=== PATIENT | female | born 1945 | race Caucasian/White ===

== ENCOUNTER 2018-04-23 07:14 | Day surgery (SDC) | payer OTHER ==
[2018-04-21 16:18] LABS: Protime INR 1.25
[2018-04-21 16:52] LABS: Absolute Lymphocytes (CBC) 3.1 K/uL (0.7-4.9); Absolute Monocytes 0.5 K/uL (0.1-1.3); Basophils % 0.5 % (0-1.3); Eosinophils % 1.5 % (0-4.4); Hematocrit 49.2 % (36.0-45.0); Lymphocytes % 46.5 % (15.3-44.8); MCH 29.7 pg (27.0-35.0); MCV 90.1 fL (80-100); MPV 8.8 fL (7.6-11.3); RBC Red Blood Cell Count 5.46 M/uL (3.86-4.86)
[2018-04-21 19:10] LABS: Potassium 3.8 mEq/L (3.6-5.0)
[2018-04-23] MEDS ORDERED: NA CHLORIDE 0.9% 500 ML ONE (07:44)
[2018-04-23] MEDS ORDERED: MIDAZOLAM HCL 2 MG/2 ML INJ ONE ×2 (10:22→11:08)
[2018-04-23] MEDS ORDERED: FENTANYL CITR 100 MCG/2 ML ONE (10:23)
--- NOTE | 2018-04-25 03:36 | OP ---
Date of Procedure: 04/23/2018 Surgeon: Jorge Ontiveros MD Armored Machine Operator: Isabel Mancini. The patient will be sent home on her home medication in about 2-3 hours after bedrest and she will se e me in the office in about 2 weeks. Procedures: Left heart catheterization. Indication And Procedure: Ms. Ty is a 73-year-old woman who was admitted as an outpatient for h eart catheterization because of unstable angina. She was given 2 mg of Versed for IV sedation. A 6- Guamanian sheath was introduced in the right common femoral artery successfully. Angio-Seal was used to close the case. Sabine catheter 6-Guamanian left and right were used to cannulate the left main and r ight main respectively. Coronary injection revealed minimal coronary artery disease in the RCA. Cir cumflex had diffuse plaquing. LAD had about 20% to 30% stenosis. The patient tolerated the procedur e well. There were no complications. Blood Loss: 5 cc. Final Diagnosis: Mild to moderate coronary artery disease. Plan: For medical therapy. Total Conscious Sedation: 30 minutes. KALYN/KHADIJAH Voice ID: [id number] Report ID: [id number]
== END 2018-04-23 13:07 | disposition home or self-care (01) ==
LOC: CCL 07:14
DX: I25.110 Atherosclerotic heart disease of native coronary artery with unstable angina pectoris (principal); I48.91 Unspecified atrial fibrillation; I10 Essential (primary) hypertension; R53.83 Other fatigue; Z79.01 Long term (current) use of anticoagulants; Z88.2 Allergy status to sulfonamides; Z88.6 Allergy status to analgesic agent
CPT/HCPCS: 36415; 80048; 85025; 85347 ×4; 85610; 85730; 93454; C1760; C1893; J2250 ×2; J3010

== ENCOUNTER 2018-06-20 09:08 | Emergency (ER) | payer OTHER ==
[2018-06-20] MEDS ORDERED: NA CHLORIDE 0.9% 1,000 ML ONE ×2 (09:28→09:29)
[2018-06-20] MEDS ORDERED: METOPROLOL TARTRATE 5 MG/5 ML INJ IV ONE (09:30)
[2018-06-20] MEDS ORDERED: METOPROLOL TAR 25 MG TAB ONE (09:44)
[2018-06-20] MEDS ORDERED: MAGNESIUM SULFATE 1 gm IVPB 1 GM/100 ML BAG IV ONE (09:46)
[2018-06-20 09:49] LABS: Absolute Lymphocytes (CBC) 3.4 K/uL (0.7-4.9); Absolute Monocytes 0.5 K/uL (0.1-1.3); Absolute Neutrophil 4.4 K/uL (1.8-8.0); Basophils % 0.5 % (0-1.3); Eosinophils % 0.5 % (0-4.4); Hematocrit 41.7 % (36.0-45.0); Lymphocytes % 40.7 % (15.3-44.8); MCH 31.4 pg (27.0-35.0); MPV 8.1 fL (7.6-11.3); Monocytes % 5.9 % (3.3-12.3); RBC Red Blood Cell Count 4.69 M/uL (3.86-4.86)
[2018-06-20] MEDS ORDERED: MIDAZOLAM HCL 2 MG/2 ML INJ ONE ×2 (09:52→10:00)
[2018-06-20] MEDS ORDERED: FENTANYL CITR 100 MCG/2 ML ONE (09:53)
[2018-06-20 09:55] LABS: Protime INR 1.94
--- NOTE | 2018-06-20 10:04 | ER ---
Nurse's Notes [facility] Name: Bernabe Ty Age: 73 yrs Sex: Female : 1945 Arrival Date: 06/20/2018 Time: 09:09 Bed 3 Private MD: Zay Florez V Diagnosis: Atrial fibrillation and flutter;Ventricular tachycardia;Other chest pain;Hypokalemia Presentation: 06/20 09:18 Presenting complaint: Patient states: i fainted this morning and have been dizzy since tw2 430, my heart is racing and im short of breath. Transition of care: patient was not received from another setting of care. Onset of symptoms was June 20, 2018. Risk Assessment: Do you want to hurt yourself or someone else? Patient reports no desire to harm self or others. Initial Sepsis Screen: Does the patient meet any 2 criteria? No. Patient's initial sepsis screen is negative. Does the patient have a suspected source of infection? No. Patient's initial sepsis screen is negative. Care prior to arrival: None. 09:18 Method Of Arrival: Wheelchair tw2 09:18 Acuity: CADY 2 iw Triage Assessment: 09:18 General: Appears distressed, Behavior is cooperative, anxious. Pain: Denies pain. tw2 Cardiovascular: Reports shortness of breath, "heart racing". Historical: - Allergies: 09:14 Codeine; iw 09:14 Hydrocodone-Acetaminophen; iw 09:14 Sulfa (Sulfonamide Antibiotics); iw - Home Meds: 09:57 losartan 50 mg oral tab [Active]; Sotalol 40 mg Oral 1 tab [Active]; flecainide 100 mg tw2 oral tab 1 tab every 12 hours [Active]; Xarelto 20 mg oral tab 1 tab once daily [Active]; - PMHx: 09:14 Hypertension; iw 09:15 Atrial Fib; iw - PSHx: 09:14 ; back sx; sinus sx; iw - Immunization history:: Adult Immunizations up to date. - Social history:: Smoking status: Patient/guardian denies using tobacco. - Family history:: not pertinent. - Ebola Screening: : Patient denies travel to an Ebola-affected area in the 21 days before illness onset. Screenin:21 Abuse screen: Denies threats or abuse. Nutritional screening: No deficits noted. tw2 Tuberculosis screening: No symptoms or risk factors identified. Fall Risk None identified. Assessment: 09:25 Reassessment: pt Afib RVR on monitor with Sinus pause lasting approx 2-3 seconds, pt iw c/o feeling like she is going to faint, feels dizzy. pt moved from ER bed 20 to ER bed 3. placed on defib pads, placed on monitor, pt awake and talking. 09:25 General: Appears distressed, uncomfortable, Behavior is cooperative, anxious. Pain: aa5 Complains of pain in chest. Neuro: Level of Consciousness is awake, alert, obeys commands, Oriented to person, place, time, situation. Cardiovascular: Reports chest pain, lightheadedness, palpitations, Heart tones S1 S2 present Rhythm is atrial fibrillation with rapid ventricular response. Respiratory: Reports shortness of breath Airway is patent Respiratory effort is even, unlabored, Respiratory pattern is regular, symmetrical, Breath sounds are clear bilaterally. GI: No signs and/or symptoms were reported involving the gastrointestinal system. : No signs and/or symptoms were reported regarding the genitourinary system. EENT: No signs and/or symptoms were reported regarding the EENT system. Derm: Skin is pink, warm \\T\\ dry. Musculoskeletal: Range of motion: intact in all extremities. 09:45 Reassessment: Dr. Johnson at bedside to set up for synchronized cardioversion. iw 09:55 Reassessment: cardioversion unsuccessful, pt still in Afib with occasional sinus pause iw lasting 1-2 seconds, Dr. Johnson recommends transfer to higher level care facility for placement of pacemaker. 10:00 Reassessment: Pt resting with eyes closed, pt easy to awake to verbal stimuli, pt aa5 states "I just feel a little drowsy". Pt denies chest pain, denies SOB. 10:40 Reassessment: Pt has had approximately 5 asystole pauses over the last 40 minutes, aa5 lasting approximately 1-3 seconds each, pt remains awake and alert during the pauses and rhythm goes back to A-fib with RVR. Dr. Burns aware. Pt reports she feels lightheaded and pt's face becomes flushed with asystole pauses. . 11:00 Reassessment: Attempted transcutaneous pacing at [address] Burns at 60 bpm 60mA, aa5 pt tolerated poorly and order to stop pacing per Dr. Burns was received, transcutaneous pacing stopped per Dr. Burns at 1100. 11:00 Reassessment: Patient and/or family updated on plan of care and expected duration. Pain aa5 level reassessed. Patient is alert, oriented x 3, equal unlabored respirations, skin warm/dry/pink. Patient denies pain at this time. Pt appears uncomfortable. Pt's remains at bedside. Pt c/o feeling lightheaded . 11:23 Reassessment: Approximately 5 asystole pauses lasting approximately 2-3 seconds noted aa5 since 1040. A-fib on monitor. Pt remains awake and alert, pt's skin is pink/warm/dry, appears uncomfortable, denies pain, denies nausea. C/o feeling lightheaded . 11:25 Reassessment: Report given to nurse Sosa at [facility]. . aa5 11:40 Reassessment: Patient is alert, oriented x 3, equal unlabored respirations, skin aa5 warm/dry/pink. Life flight at bedside. Rhythm: Sinus Mariusz at 56 bpm, Dr. Burns notified (see pt's chart for all Rhythm strips). Pt states feeling better, denies any symptoms at this time. . Vital Signs: 09:19 BP 126 / 82; Pulse 132; Resp 19; Temp 97.8(O); Pulse Ox 100% on R/A; Pain 0/10; tw2 09:30 BP 159 / 106; Pulse 120; Resp 18 S; Pulse Ox 100% on 2 lpm NC; aa5 09:50 BP 155 / 100; Pulse 130; Resp 18 S; Pulse Ox 100% on 2 lpm NC; aa5 10:10 BP 128 / 85; Pulse 110; Resp 14 S; Pulse Ox 100% on Non-rebreather mask; aa5 10:30 BP 139 / 80; Pulse 114; Resp 14 S; Pulse Ox 100% on Non-rebreather mask; aa5 10:50 BP 115 / 97; Pulse 110; Resp 16 S; Pulse Ox 100% on Non-rebreather mask; aa5 11:00 BP 149 / 99; Pulse 122; Resp 20 S; Pulse Ox 100% on Non-rebreather mask; aa5 11:20 BP 123 / 98; Pulse 105; Resp 16 S; Pulse Ox 100% on Non-rebreather mask; aa5 11:40 BP 133 / 95; Pulse 56; Resp 16 S; Temp 98.0(O); Pulse Ox 100% on 2 lpm NC; Pain 0/10; aa5 09:19 Dr. Burns notified. "just uncomfortable in my chest" tw2 ED Course: 09:09 Patient arrived in ED. mr 09:09 Zay Florez MD is Private Physician. mr 09:19 Triage completed. tw2 09:19 Arm band placed on. EKG completed in triage. Results shown to MD. tw2 09:20 Gaibno Burns MD is Attending Physician. estrella 09:20 Placed in gown. Bed in low position. Call light in reach. Adult w/ patient. Cardiac tw2 monitor on. Pulse ox on. NIBP on. Notified ED physician of vital signs. 09:20 Initial lab(s) drawn, by ED staff, sent to lab. Inserted saline lock: 20 gauge in right iw antecubital area, using aseptic technique. Blood collected. 09:39 Macie Strickland RN is Primary Nurse. aa5 09:45 Inserted saline lock: 20 gauge in left wrist, using aseptic technique. IV inserted by mario alberto Quijano RN. 09:53 Assist provider with cardioversion (synchronized) with pads, for treatment of A fib iw with 100 joules Set up for procedure. Performed by Jett Johnson MD Monitored with director of cardiac cath lab, pulse ox, Post procedure rhythm is unchanged. Patient tolerated well. 09:54 Assist provider with cardioversion (synchronized) with pads, for treatment of A fib iw with 200 joules X 1. Set up for procedure. Performed by Jett Johnson MD Monitored with director of cardiac cath lab, pulse ox, Post procedure rhythm is unchanged. Patient tolerated well. 10:15 X-ray completed. Portable x-ray completed in exam room. Patient tolerated procedure ag1 well. 10:16 XRAY Chest (1 view) In Process Unspecified. EDMS 11:40 Patient admitted, IV remains in place. aa5 Administered Medications: 09:28 Drug: Lopressor 5 mg Route: IVP; Site: right antecubital; aa5 09:30 Drug: NS 0.9% 500 ml Route: IV; Rate: bolus; Site: right antecubital; aa5 10:10 Follow up: IV Status: Completed infusion aa5 09:33 Drug: Lopressor 5 mg Route: IVP; Site: right antecubital; aa5 10:13 Follow up: VO to hold 3rd Lopressor dose at 0946. VO not to adminiser 3rd Lopressor aa5 dose at 0950 09:41 Drug: Lopressor 25 mg Route: PO; aa5 11:45 Follow up: Response: No adverse reaction aa5 09:45 Drug: Magnesium Sulfate 1 grams Route: IVPB; Infused Over: 1 hrs; Site: right iw antecubital; 10:45 Follow up: IV Status: Completed infusion aa5 09:50 Drug: Versed 2 mg Route: IVP; Site: left hand; iw 09:55 Follow up: Response: No adverse reaction aa5 09:50 Drug: fentaNYL (PF) 25 mcg Route: IVP; Site: left hand; iw 09:55 Follow up: Response: No adverse reaction aa5 09:50 Drug: Versed 2 mg Route: IVP; Site: left hand; iw 09:55 Follow up: Response: No adverse reaction aa5 10:10 Drug: NS 0.9% 1000 ml Route: IV; Rate: 125 ml/hr; Site: right antecubital; aa5 11:45 Follow up: IV Status: Infusion continued upon transfer aa5 10:35 Drug: Potassium Chloride 20 mEq Route: IV; Rate: per protocol; Site: right antecubital; aa5 11:30 Follow up: IV Status: Infusion continued upon transfer aa5 Intake: Outcome: 10:04 ER care complete, transfer ordered by MD. de la rosa 11:40 Transferred by helicopter to [facility], Transfer form completed. X-rays aa5 sent w/ patient. Note: Report given to Life flight. 11:40 Condition: improved 11:40 Discharge instructions given to patient, family, Instructed on the need for transfer, Demonstrated understanding of instructions. 11:52 Patient left the ED. aa5 Signatures: Dispatcher [employer] EDGabino Zavala MD MD cha Rivera, Maria mr Williams, Irene, RN RN Macie Strickland RN RN aa5 Kell Johns ag1 Tracie Dias RN RN tw2 Corrections: (The following items were deleted from the chart) 10:12 09:15 Reassessment: pt Afib RVR on monitor with Sinus pause lasting approx 2-3 seconds, iw pt c/o feeling like she is going to faint, feels dizzy iw 10:14 09:18 Acuity: CADY 3 tw2 iw 11:20 09:25 Respiratory: Airway is patent Respiratory effort is even, unlabored, Respiratory aa5 pattern is regular, symmetrical, Breath sounds are clear bilaterally. aa5 11: 10:00 Reassessment: Pt resting with eyes closed, pt easy to awake to verbal stimuli, pt aa5 states "I just feel a little drowsy" . aa5 11:22 10:40 Reassessment: Pt has had approximately 5 asystole pauses over the last 40 aa5 minutes, lasting approximately 1-3 seconds each, pt remains awake and alert during the pauses and rhythm goes back to A-fib with RVR. Dr. Burns aware. . aa5
--- NOTE | 2018-06-20 10:04 | EDPHYS ---
Physician Documentation [facility] Name: Bernabe Ty Age: 73 yrs Sex: Female : 1945 Arrival Date: 06/20/2018 Time: 09:09 Bed 3 Private MD: Zay Florez V ED Physician Gabino Burns HPI: 06/20 09:34 This 73 yrs old Female presents to ER via Wheelchair with complaints of AFIB, estrella Dizziness. 09:34 This 73 yrs old Female presents to ER via Wheelchair with complaints of AFIB, estrella Dizziness. 09:34 The patient presents with dizziness, feeling faint, generalized weakness, estrella lightheadedness. Onset: The symptoms/episode began/occurred just prior to arrival, this morning. Context: occurred at home. Modifying factors: The symptoms are alleviated by nothing, the symptoms are aggravated by nothing. Associated signs and symptoms: The patient has no apparent associated signs or symptoms. Severity of symptoms: At their worst the symptoms were moderate in the emergency department the symptoms are unchanged. Patient's baseline: Neuro:. Historical: - Allergies: 09:14 Codeine; iw 09:14 Hydrocodone-Acetaminophen; iw 09:14 Sulfa (Sulfonamide Antibiotics); iw - Home Meds: 09:57 losartan 50 mg oral tab [Active]; Sotalol 40 mg Oral 1 tab [Active]; flecainide 100 mg tw2 oral tab 1 tab every 12 hours [Active]; Xarelto 20 mg oral tab 1 tab once daily [Active]; - PMHx: 09:14 Hypertension; iw 09:15 Atrial Fib; iw - PSHx: 09:14 ; back sx; sinus sx; iw - Immunization history:: Adult Immunizations up to date. - Social history:: Smoking status: Patient/guardian denies using tobacco. - Family history:: not pertinent. - Ebola Screening: : Patient denies travel to an Ebola-affected area in the 21 days before illness onset. ROS: 09:34 Constitutional: Negative for fever, chills, and weight loss, Eyes: Negative for injury, estrella pain, redness, and discharge, ENT: Negative for injury, pain, and discharge, Neck: Negative for injury, pain, and swelling, Respiratory: Negative for shortness of breath, cough, wheezing, and pleuritic chest pain, Abdomen/GI: Negative for abdominal pain, nausea, vomiting, diarrhea, and constipation, Back: Negative for injury and pain, : Negative for injury, bleeding, discharge, and swelling, MS/Extremity: Negative for injury and deformity, Skin: Negative for injury, rash, and discoloration, Psych: Negative for depression, anxiety, suicide ideation, homicidal ideation, and hallucinations, Allergy/Immunology: Negative for hives, rash, and allergies, Endocrine: Negative for neck swelling, polydipsia, polyuria, polyphagia, and marked weight changes, Hematologic/Lymphatic: Negative for swollen nodes, abnormal bleeding, and unusual bruising. 09:34 Cardiovascular: Positive for chest pain, palpitations. 09:34 Respiratory: Positive for shortness of breath, at rest. Exam: 09:34 Constitutional: This is a well developed, well nourished patient who is awake, alert, estrella and in no acute distress. Head/Face: Normocephalic, atraumatic. Eyes: Pupils equal round and reactive to light, extra-ocular motions intact. Lids and lashes normal. Conjunctiva and sclera are non-icteric and not injected. Cornea within normal limits. Periorbital areas with no swelling, redness, or edema. ENT: Nares patent. No nasal discharge, no septal abnormalities noted. Tympanic membranes are normal and external auditory canals are clear. Oropharynx with no redness, swelling, or masses, exudates, or evidence of obstruction, uvula midline. Mucous membranes moist. Neck: Trachea midline, no thyromegaly or masses palpated, and no cervical lymphadenopathy. Supple, full range of motion without nuchal rigidity, or vertebral point tenderness. No Meningismus. Chest/axilla: Normal chest wall appearance and motion. Nontender with no deformity. No lesions are appreciated. Respiratory: Lungs have equal breath sounds bilaterally, clear to auscultation and percussion. No rales, rhonchi or wheezes noted. No increased work of breathing, no retractions or nasal flaring. Abdomen/GI: Soft, non-tender, with normal bowel sounds. No distension or tympany. No guarding or rebound. No evidence of tenderness throughout. Back: No spinal tenderness. No costovertebral tenderness. Full range of motion. Female : Normal external genitalia. Skin: Warm, dry with normal turgor. Normal color with no rashes, no lesions, and no evidence of cellulitis. MS/ Extremity: Pulses equal, no cyanosis. Neurovascular intact. Full, normal range of motion. Neuro: Awake and alert, GCS 15, oriented to person, place, time, and situation. Cranial nerves II-XII grossly intact. Motor strength 5/5 in all extremities. Sensory grossly intact. Cerebellar exam normal. Normal gait. Psych: Awake, alert, with orientation to person, place and time. Behavior, mood, and affect are within normal limits. 09:34 Cardiovascular: Rate: tachycardic, Rhythm: irregularly irregular, Pulses: Pulses are 4+ in bilateral radial, brachial, femoral, popliteal, posterior tibial and and dorsalis pedis arteries.. Heart sounds: normal, Edema: is not appreciated, JVD: is not appreciated. Vital Signs: 09:19 BP 126 / 82; Pulse 132; Resp 19; Temp 97.8(O); Pulse Ox 100% on R/A; Pain 0/10; tw2 09:30 BP 159 / 106; Pulse 120; Resp 18 S; Pulse Ox 100% on 2 lpm NC; aa5 09:50 BP 155 / 100; Pulse 130; Resp 18 S; Pulse Ox 100% on 2 lpm NC; aa5 10:10 BP 128 / 85; Pulse 110; Resp 14 S; Pulse Ox 100% on Non-rebreather mask; aa5 10:30 BP 139 / 80; Pulse 114; Resp 14 S; Pulse Ox 100% on Non-rebreather mask; aa5 10:50 BP 115 / 97; Pulse 110; Resp 16 S; Pulse Ox 100% on Non-rebreather mask; aa5 11:00 BP 149 / 99; Pulse 122; Resp 20 S; Pulse Ox 100% on Non-rebreather mask; aa5 11:20 BP 123 / 98; Pulse 105; Resp 16 S; Pulse Ox 100% on Non-rebreather mask; aa5 11:40 BP 133 / 95; Pulse 56; Resp 16 S; Temp 98.0(O); Pulse Ox 100% on 2 lpm NC; Pain 0/10; aa5 09:19 Dr. Burns notified. "just uncomfortable in my chest" tw2 MDM: 09:20 Patient medically screened. [facility] 09:36 Data reviewed: vital signs, nurses notes, lab test result(s), EKG, radiologic studies, [facility] CT scan, plain films. 06/20 09:21 Order name: Basic Metabolic Panel; Complete Time: 10:15 [facility] 06/20 09:21 Order name: CBC with Diff; Complete Time: 10:01 [facility] 06/20 09:21 Order name: Ckmb; Complete Time: 10:15 [facility] 06/20 09:21 Order name: CPK; Complete Time: 10:15 [facility] 06/20 09:21 Order name: LFT's; Complete Time: 10:15 [facility] 06/20 09:21 Order name: Magnesium; Complete Time: 10:15 [facility] 06/20 09:21 Order name: NT PRO-BNP; Complete Time: 10:15 [facility] 06/20 09:21 Order name: PT-INR [facility] 06/20 09:21 Order name: Ptt, Activated [facility] 06/20 09:21 Order name: Troponin (emerg Dept Use Only); Complete Time: 10:09 [facility] 06/20 09:21 Order name: XRAY Chest (1 view) [facility] 06/20 09:21 Order name: Lipase; Complete Time: 10:15 [facility] 06/20 09:21 Order name: TSH; Complete Time: 10:15 [facility] 06/20 09:21 Order name: EKG; Complete Time: 09:22 [facility] 06/20 09:21 Order name: Cardiac monitoring; Complete Time: 09:39 [facility] 06/20 09:21 Order name: EKG - Nurse/Tech; Complete Time: 09:39 [facility] 06/20 09:21 Order name: IV Saline Lock; Complete Time: 09:39 [facility] 06/20 09:21 Order name: Labs collected and sent; Complete Time: 09:39 [facility] 06/20 09:21 Order name: O2 Per Protocol; Complete Time: 09:39 [facility] 06/20 09:21 Order name: O2 Sat Monitoring; Complete Time: 09:39 [facility] Administered Medications: 09:28 Drug: Lopressor 5 mg Route: IVP; Site: right antecubital; aa5 09:30 Drug: NS 0.9% 500 ml Route: IV; Rate: bolus; Site: right antecubital; aa5 10:10 Follow up: IV Status: Completed infusion aa5 09:33 Drug: Lopressor 5 mg Route: IVP; Site: right antecubital; aa5 10:13 Follow up: VO to hold 3rd Lopressor dose at 0946. VO not to adminiser 3rd Lopressor aa5 dose at 0950 09:41 Drug: Lopressor 25 mg Route: PO; aa5 11:45 Follow up: Response: No adverse reaction aa5 09:45 Drug: Magnesium Sulfate 1 grams Route: IVPB; Infused Over: 1 hrs; Site: right iw antecubital; 10:45 Follow up: IV Status: Completed infusion aa5 09:50 Drug: Versed 2 mg Route: IVP; Site: left hand; iw 09:55 Follow up: Response: No adverse reaction aa5 09:50 Drug: fentaNYL (PF) 25 mcg Route: IVP; Site: left hand; iw 09:55 Follow up: Response: No adverse reaction aa5 09:50 Drug: Versed 2 mg Route: IVP; Site: left hand; iw 09:55 Follow up: Response: No adverse reaction aa5 10:10 Drug: NS 0.9% 1000 ml Route: IV; Rate: 125 ml/hr; Site: right antecubital; aa5 11:45 Follow up: IV Status: Infusion continued upon transfer aa5 10:35 Drug: Potassium Chloride 20 mEq Route: IV; Rate: per protocol; Site: right antecubital; aa5 11:30 Follow up: IV Status: Infusion continued upon transfer aa5 Disposition: 06/20/18 10:04 Transfer ordered to [facility]. Diagnosis are Atrial fibrillation and flutter, Ventricular tachycardia, Other chest pain, Hypokalemia. - Reason for transfer: Higher level of care. - Accepting physician is dr kelly pascal. - Condition is Stable. - Problem is new. - Symptoms have improved. Signatures: Dispatcher [employer] [facility] Gabino Burns MD MD cha Williams, Irene RN RN iw Macie Strickland RN RN aa5 Tracie Dias RN RN tw2 Corrections: (The following items were deleted from the chart) 10:17 10:04 06/20/2018 10:04 Transfer ordered to [facility]. Diagnosis is estrella Atrial fibrillation and flutter; Ventricular tachycardia; Other chest pain. Reason for transfer: Higher level of care. Accepting physician is dr kelly pascal. Condition is Stable. Problem is new. Symptoms have improved. estrella 11:47 09:21 Urine Dipstick-Ancillary ordered. estrella aa5 11:52 10:17 06/20/2018 10:04 Transfer ordered to [facility]. Diagnosis is aa5 Atrial fibrillation and flutter; Ventricular tachycardia; Other chest pain; Hypokalemia. Reason for transfer: Higher level of care. Accepting physician is dr kelly pascal. Condition is Stable. Problem is new. Symptoms have improved. estrella
[2018-06-20 10:12] LABS: Albumin 4.3 g/dL (3.4-5.0); Bilirubin Direct 0.2 mg/dL (0-0.2); Bilirubin Total 0.5 mg/dL (0.2-1.0); CKMB Creatine Kinase MB 1.7 ng/mL (0.3-3.6); Magnesium 2.4 mg/dL (1.8-2.4); Potassium 3.4 mmol/L (3.5-5.1); Thyroid Stimulating Hormone 1.8 uIU/mL (0.36-3.74)
[2018-06-20] MEDS ORDERED: KCL 20 MEQ/100 mL IVPB 20 MEQ/100 ML BAG IV ONE (10:43)
--- NOTE | 2018-06-20 11:08 | RAD REPORT ---
EXAM DESCRIPTION: RAD - Chest Single View - 06/20/2018 10:17 am CLINICAL HISTORY: CHEST PAIN Chest pain. COMPARISON: Chest Single View dated 11/16/2017; Chest Pa And Lat (2 Views) dated 08/15/2016; Chest Si ngle View dated 08/05/2016; CHEST PA AND LAT 2 VIEW dated 10/20/2014 FINDINGS: Portable technique limits examination quality. The lungs are grossly clear. The heart is normal in size. No displaced fractures. IMPRESSION: No acute intrathoracic process suspected.
--- NOTE | 2018-06-21 10:40 | EKG ---
Test Date: 2018-06-20 Test Time: 11:46:01 Glass Technician: ONEAL MEASUREMENT RESULTS: Intervals: Rate: 54 WA: 204 QRSD: 94 QT: 476 QTc: 451 [place]: P: 29 WA: 204 QRS: -48 T: 59 INTERPRETIVE STATEMENTS: Sinus bradycardia Left axis Abnormal ECG Compared to ECG 06/20/2018 09:58:46 Atrial fibrillation no longer present Ventricular premature complex(es) no longer present Electronically Signed On 06-21-18 10:39:20 CDT by Jett Johnson
--- NOTE | 2018-06-21 10:40 | EKG ---
Test Date: 2018-06-20 Test Time: 09:58:46 Field Engineer: ONEAL MEASUREMENT RESULTS: Intervals: Rate: 112 [place]: QRSD: 100 QT: 386 QTc: [address]: P: [place]: QRS: -47 T: 68 INTERPRETIVE STATEMENTS: Atrial fibrillation with rapid ventricular response with premature ventricular or aberrantly conducted complexes Left anterior fascicular block Abnormal ECG Compared to ECG 12/09/2017 11:58:15 Ventricular premature complex(es) now present Left anterior fascicular block now present Left-axis deviation no longer present Left ventricular hypertrophy no longer present Prolonged QT interval no longer present Electronically Signed On 06-21-18 10:39:33 CDT by Jett Johnson
--- NOTE | 2018-06-21 10:41 | EKG ---
Test Date: 2018-06-20 Test Time: 09:23:24 Laser Engraver: BENNY MEASUREMENT RESULTS: Intervals: Rate: 186 [place]: QRSD: 120 QT: 236 QTc: 415 [place]: P: [place]: QRS: -61 T: 168 INTERPRETIVE STATEMENTS: Atrial fibrillation with rapid ventricular response with Left bundle branch block aberrance Left axis deviation Marked ST abnormality, possible lateral subendocardial injury Abnormal ECG Compared to ECG 12/09/2017 11:58:15 no significant change from previous ECG Electronically Signed On 06-21-18 10:41:22 CDT by Jett Johnson
--- NOTE | 2018-06-21 10:41 | EKG ---
Test Date: 2018-06-20 Test Time: 09:27:47 Educational Guidance Counselor: BENNY MEASUREMENT RESULTS: Intervals: Rate: 128 CO: QRSD: 140 QT: 372 QTc: 543 [place]: P: CO: QRS: -45 T: 136 INTERPRETIVE STATEMENTS: Atrial fibrillation with rapid ventricular response with premature ventricular or aberrantly conducted complexes Left axis deviation Abnormal ECG Compared to ECG 12/09/2017 11:58:15 Ventricular premature complex(es) now present Electronically Signed On 06-21-18 10:40:31 CDT by Jett Johnson
--- NOTE | 2018-06-21 10:42 | EKG ---
Test Date: 2018-06-20 Test Time: 09:17:26 Manager Of Security: BENNY MEASUREMENT RESULTS: Intervals: Rate: 145 MI: QRSD: 140 QT: 352 QTc: 546 [place]: P: MI: QRS: -46 T: 128 INTERPRETIVE STATEMENTS: Atrial fibrillation with rapid ventricular response with Left bundle branch block aberrancy Left axis deviation Abnormal ECG Compared to ECG 12/09/2017 11:58:15 no significant change from previous ECG Electronically Signed On 06-21-18 10:41:56 CDT by Jett Johnson
--- NOTE | 2018-06-21 10:43 | EKG ---
Test Date: 2018-06-20 Test Time: 09:15:07 Weatherization Operations Manager: BENNY MEASUREMENT RESULTS: Intervals: Rate: 132 AR: 114 QRSD: 142 QT: 380 QTc: 563 [place]: P: 94 AR: 114 QRS: -53 T: 135 INTERPRETIVE STATEMENTS: Atrial fibrillation with rapid ventricular response with Left bundle branch block aberrancy Abnormal ECG Compared to ECG 12/09/2017 11:58:15 significant changes have occurred Electronically Signed On 06-21-18 10:43:18 CDT by Jett Johnson
== END 2018-06-20 11:52 | disposition short-term general hospital (02) ==
LOC: ER 09:08
DX: I48.91 Unspecified atrial fibrillation (principal); I48.92 Unspecified atrial flutter; I47.2 Ventricular tachycardia; R07.89 Other chest pain; E87.6 Hypokalemia; Z88.6 Allergy status to analgesic agent; Z88.2 Allergy status to sulfonamides; I10 Essential (primary) hypertension
CPT/HCPCS: 36415; 71045; 80048; 80076; 82550; 82553; 83690; 83735; 83880; 84443; 84484; 85025; 85610; 85730; 92960; 93005 ×6; 99285; J2250; J3010; J3475; J7030 ×2

== ENCOUNTER 2018-09-25 06:17 | Emergency (ER) | payer OTHER ==
--- OUTSIDE RECORDS SUMMARY | 2018-09-25 06:20 | XMS REPORT | Clinical Summary ---
:1945 Author Organization [facility] Address [address] [place] [address] Care Team Providers Name Role Phone Asked, No Pcp Primary Care Provider Unavailable Allergies Active Allergy Reactions Severity Noted Date Comments Sulfamethoxazole-Trimethoprim Rash Low 09/15/2018 Codeine GI Intolerance 06/20/2018 Hydrocodone GI Intolerance 06/20/2018 Sulfa (Sulfonamide Antibiotics) Rash, GI Intolerance Low 06/20/2018 Current Medications Prescription Sig. Disp. Refills Start Date End Date Status losartan-hydrochlor Take 1 tablet 3 05/25/2018 Active othiazide (HYZAAR) by mouth 100-25 mg per daily. tablet XARELTO 20 mg Take 20 mg by 3 05/27/2018 Active tablet mouth every evening. aspirin 81 mg Chew 1 tablet 30 tablet 0 06/25/2018 06/25/2019 Active chewable tablet (81 mg total) daily. amIODarone Take 400mg (2 70 tablet 0 06/24/2018 Active (PACERONE) 200 MG tabs) by tablet mouth twice a day for 1 week then 200mg (1 tab) by mouth twice a day until wound check visit. sucralfate Take 1 tablet 120 tablet 0 09/16/2018 10/16/2018 Active (CARAFATE) 1 gram (1 g total) tablet by mouth 4 (four) times a day before meals and nightly for 30 days. colchicine 0.6 mg Take 0.5 30 tablet 0 09/16/2018 10/16/2018 Active tablet tablets (0.3 mg total) by mouth 2 (two) times a day for 30 days. pantoprazole Take 1 tablet 60 tablet 0 09/16/2018 10/16/2018 Active (PROTONIX) 40 MG EC (40 mg total) tablet by mouth 2 (two) times a day for 30 days. sotalol (BETAPACE) Take 80 mg by 3 03/17/2018 06/24/2018 Discontinued 80 MG tablet mouth 2 (two) times a day. PARoxetine (PAXIL) Take 10 mg by 0 04/09/2018 09/15/2018 Discontinued 10 MG tablet mouth nightly. mirtazapine Take 7.5 mg 0 04/21/2018 09/15/2018 Discontinued (REMERON) 7.5 MG by mouth tablet nightly. flecainide Take 100 mg 6 06/15/2018 06/24/2018 Discontinued (TAMBOCOR) 100 MG by mouth tablet every 12 (twelve) hours. atorvastatin Take 1 tablet 30 tablet 0 06/24/2018 09/15/2018 Discontinued (LIPITOR) 20 MG (20 mg total) tablet by mouth nightly. Default OP ins Active Problems Problem Noted Date PAF (paroxysmal atrial fibrillation) ([facility]) 09/15/2018 Chronic atrial fibrillation ([facility]) 06/20/2018 Paroxysmal SVT (supraventricular tachycardia) ([facility]) 06/20/2018 Essential hypertension 06/20/2018 Encounters Date Type Specialty Care Team Description 09/15/2018 - Hospital Encounter Cardiology Aric Walters MD PAF (paroxysmal 09/16/2018 atrial fibrillation) ([facility]) 09/15/2018 Anesthesia Event Procedural Kevan Mora Cardiology BLAYNE Zaragoza 09/15/2018 Procedure Pass Procedural Cardiology 09/15/2018 Surgery Procedural Aric Walters MD Ep complete ep study Cardiology w ablation pulmonary vein [55911 (CPT)] 06/22/2018 Procedure Pass Procedural Cardiology 06/22/2018 Surgery Procedural Kevin Bahena Insertion pacemaker Cardiology MD Brittanie pulse generator [09859 (CPT)] 06/20/2018 - Hospital Encounter Cardiology Valeria Santiago Paroxysmal SVT 06/24/2018 MD Gi (supraventricular tachycardia) (Primary Dx) 06/20/2018 Intake Access N/A after 09/24/2017 Family History Medical History Relation Name Comments Heart disease Brother Heart disease Sister Relation Name Status Comments Brother Father Mother Sister Social History Tobacco Use Types Packs/Day Years Used Date Never Smoker Smokeless Tobacco: Never Used Sex Assigned at Date Recorded Not on file Last Filed Vital Signs Vital Sign Reading Time Taken Blood Pressure 121/57 09/16/2018 7:46 AM CDT Pulse 59 09/16/2018 8:00 AM CDT Temperature 36.7 C (98 F) 09/16/2018 7:46 AM CDT Respiratory Rate 16 09/16/2018 7:46 AM CDT Oxygen Saturation 96% 09/16/2018 7:46 AM CDT Inhaled Oxygen Concentration - - Weight 70 kg (154 lb 5 oz) 09/16/2018 6:48 AM CDT Height 162.6 cm (5' 4") 09/15/2018 7:16 AM CDT Body Mass Index 26.49 09/16/2018 6:48 AM CDT Plan of Treatment Health Maintenance Due Date Last Done Comments BREAST CANCER SCREENING 1997 COLON CANCER SCREENING 1997 SHINGRIX VACCINE (#1) 1997 ZOSTER VACCINE 2007 PNEUMOCOCCAL POLYSACCHARIDE VACCINE AGE 65 AND OVER 02/18/2012 PNEUMOCOCCAL-13 02/18/2012 INFLUENZA VACCINE 06/17/2018 Implants Implanted Type Area Track Grinder Device Expiration Model / Identifier Date Serial / Lot Rosanna Xt Dr Mri - [id number] Cardiac N/A: [employer] CRM [id number] / Implanted: Qty: 1 on 06/22/2018 by Kevin Bahena Jr., MD Pacemaker N/[employer] / Generators Lead, Bipolar Active Fixation Atrial Steroid Eluting 45 Cm Capsure Fix Novus System - [id number] Cardiac Pacing N/A: [employer] CRM 04/06/2020 [id number] / Implanted: 06/22/2018 (Quantity not on file) Leads or N[employer] [id number] / Electrodes or [id number] Accessories Lead, Pacemaker Bipolar Fix Forming Atrial And Ventricular Steroid Eluting 52 Centimeter Capsure Fix Novus - [id number] Cardiac Pacing N/A: [employer] CRM 04/01/2020 [id number] 52 / Implanted: 06/22/2018 (Quantity not on file) Leads or N[employer] [id number] / Electrodes or [id number] Accessories Procedures Procedure Name Priority Date/Time Associated Comments Diagnosis XR CHEST 1 VW Routine 09/16/2018 10:06 Results for this PORTABLE AM CDT procedure are in the results section. ESTIMATED GFR Routine 09/16/2018 4:30 Results for this AM CDT procedure are in the results section. BASIC METABOLIC PANEL Routine 09/16/2018 4:30 Results for this AM CDT procedure are in the results section. HC COMPLETE BLD COUNT Routine 09/16/2018 4:30 Results for this W/AUTO DIFF AM CDT procedure are in the results section. EP COMPLETE EP STUDY Routine 09/15/2018 1:04 PAF (paroxysmal Results for this W ABLATION PULMONARY PM CDT atrial procedure are in VEIN fibrillation) (HCC) the results section. ACTIVATED CLOTTING Routine 09/15/2018 1:03 Results for this TIME PM CDT procedure are in the results section. ACTIVATED CLOTTING Routine 09/15/2018 12:42 Results for this TIME PM CDT procedure are in the results section. ACTIVATED CLOTTING Routine 09/15/2018 11:50 Results for this TIME AM CDT procedure are in the results section. ACTIVATED CLOTTING Routine 09/15/2018 11:40 Results for this TIME AM CDT procedure are in the results section. ACTIVATED CLOTTING Routine 09/15/2018 11:00 Results for this TIME AM CDT procedure are in the results section. 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 Urgency: Elective Difficult Airway: No Anesthesiologist: PERCY GEE Resident/PRISONER CLASSIFICATION INTERVIEWER/AA: MILENA GRESHAM Performed by: resident/PRISONER CLASSIFICATION INTERVIEWER/AA Preoxygenated with 100% O2: Yes C-spine Precautions Maintained Throughout: Yes Mask Ventilation: Easy mask Final Airway Type: Endotracheal airway Final Endotracheal Airway: ETT Technique Used: Direct laryngoscopy Insertion Site: Oral Blade Type: Isidro Laryngoscope Blade/Videolaryngoscope Blade Size: 2 ETT Size (mm): 7.0 Measured from: Lips ETT to Lips (cm): 20 Placement Verified by: CO2 detection, direct visualization and equal breath sounds Laryngoscopic view: Grade I - full view of glottis Rapid Sequence Induction (RSI): No Modified RSI: No Number of Attempts at Approach: 1 ESTIMATED GFR STAT 09/15/2018 7:55 AM CDT PROTHROMBIN TIME WITH INR STAT 09/15/2018 7:55 AM CDT BASIC METABOLIC PANEL STAT 09/15/2018 7:55 AM CDT HC COMPLETE BLD COUNT W/AUTO STAT 09/15/2018 7:55 AM CDT Results for this DIFF procedure are in the results section. TYPE AND SCREEN Routine 09/15/2018 7:00 AM CDT ECG 12-LEAD STAT 09/15/2018 6:44 AM CDT POC GLUCOSE Routine 06/24/2018 2:17 PM CDT POC GLUCOSE Routine 06/24/2018 11:13 AM CDT POC GLUCOSE Routine 06/24/2018 8:14 AM CDT ZZESTIMATED GFR Routine 06/24/2018 5:33 AM CDT PHOSPHORUS LEVEL Routine 06/24/2018 5:33 AM CDT IONIZED CALCIUM Routine 06/24/2018 5:33 AM CDT MAGNESIUM LEVEL Routine 06/24/2018 5:33 AM CDT CBC HEMOGRAM Routine 06/24/2018 5:33 AM CDT BASIC METABOLIC PANEL Routine 06/24/2018 5:33 AM CDT POC GLUCOSE Routine 06/24/2018 4:58 AM CDT POC GLUCOSE Routine 06/23/2018 8:57 PM CDT POC GLUCOSE Routine 06/23/2018 5:03 PM CDT POC GLUCOSE Routine 06/23/2018 12:06 PM CDT POC GLUCOSE Routine 06/23/2018 8:36 AM CDT XR CHEST 1 VW PORTABLE Routine 06/23/2018 5:18 AM CDT ECG PRE/POST OP Routine 06/23/2018 4:43 AM CDT POC GLUCOSE Routine 06/23/2018 4:29 AM CDT ZZESTIMATED GFR Routine 06/23/2018 1:20 AM CDT PARTIAL THROMBOPLASTIN TIME Routine 06/23/2018 1:20 AM CDT Results for this (PTT) procedure are in the results section. PROTHROMBIN TIME WITH INR Routine 06/23/2018 1:20 AM CDT IONIZED CALCIUM Routine 06/23/2018 1:20 AM CDT PHOSPHORUS LEVEL Routine 06/23/2018 1:20 AM CDT MAGNESIUM LEVEL Routine 06/23/2018 1:20 AM CDT BASIC METABOLIC PANEL Routine 06/23/2018 1:20 AM CDT HC COMPLETE BLD COUNT W/AUTO Routine 06/23/2018 1:20 AM CDT Results for this DIFF procedure are in the results section. POC GLUCOSE Routine 06/23/2018 12:07 AM CDT XR CHEST 1 VW PORTABLE Routine 06/22/2018 9:09 PM CDT POC GLUCOSE Routine 06/22/2018 9:09 PM CDT EP INSERTION PACEMAKER PULSE Routine 06/22/2018 7:50 PM CDT Results for this GENERATOR procedure are in the results section. POC GLUCOSE Routine 06/22/2018 3:56 PM CDT POC GLUCOSE Routine 06/22/2018 12:10 PM CDT POC GLUCOSE Routine 06/22/2018 7:23 AM CDT XR CHEST 1 VW PORTABLE Routine 06/22/2018 5:23 AM CDT ECG 12-LEAD Routine 06/22/2018 5:19 AM CDT POC GLUCOSE Routine 06/22/2018 3:51 AM CDT ZZESTIMATED GFR Routine 06/22/2018 1:20 AM CDT PHOSPHORUS LEVEL Routine 06/22/2018 1:20 AM CDT MAGNESIUM LEVEL Routine 06/22/2018 1:20 AM CDT IONIZED CALCIUM Routine 06/22/2018 1:20 AM CDT HC COMPLETE BLD COUNT W/AUTO Routine 06/22/2018 1:20 AM CDT Results for this DIFF procedure are in the results section. BASIC METABOLIC PANEL Routine 06/22/2018 1:20 AM CDT POC GLUCOSE Routine 06/21/2018 11:40 PM CDT POC GLUCOSE Routine 06/21/2018 7:48 PM CDT POC GLUCOSE Routine 06/21/2018 5:06 PM CDT POC GLUCOSE Routine 06/21/2018 11:39 AM CDT POC GLUCOSE Routine 06/21/2018 7:44 AM CDT ECG 12-LEAD Routine 06/21/2018 5:10 AM CDT XR CHEST 1 VW PORTABLE Routine 06/21/2018 4:35 AM CDT POC GLUCOSE Routine 06/21/2018 4:13 AM CDT ZZESTIMATED GFR Routine 06/21/2018 1:14 AM CDT PHOSPHORUS LEVEL Routine 06/21/2018 1:14 AM CDT MAGNESIUM LEVEL Routine 06/21/2018 1:14 AM CDT IONIZED CALCIUM Routine 06/21/2018 1:14 AM CDT BASIC METABOLIC PANEL Routine 06/21/2018 1:14 AM CDT HC COMPLETE BLD COUNT W/AUTO Routine 06/21/2018 1:00 AM CDT Results for this DIFF procedure are in the results section. POC GLUCOSE Routine 06/20/2018 11:49 PM CDT POC GLUCOSE Routine 06/20/2018 8:04 PM CDT POC GLUCOSE Routine 06/20/2018 4:42 PM CDT POTASSIUM LEVEL Routine 06/20/2018 3:36 PM CDT THYROID STIMULATING HORMONE Routine 06/20/2018 3:36 PM CDT ECG 12-LEAD Routine 06/20/2018 2:39 PM CDT HEMOGLOBIN A1C Routine 06/20/2018 2:37 PM CDT TYPE AND SCREEN Routine 06/20/2018 2:37 PM CDT PARTIAL THROMBOPLASTIN TIME Routine 06/20/2018 2:35 PM CDT Results for this (PTT) procedure are in the results section. PROTHROMBIN TIME WITH INR Routine 06/20/2018 2:35 PM CDT HC COMPLETE BLD COUNT W/AUTO Routine 06/20/2018 2:35 PM CDT Results for this DIFF procedure are in the results section. ECHOCARDIOGRAM 2D COMPLETE W STAT 06/20/2018 2:20 PM CDT Results for this MMODE SPECTRAL COLOR DOPPLER procedure are in the (18953) results section. XR CHEST 1 VW PORTABLE Routine 06/20/2018 1:35 PM CDT HEPATIC FUNCTION PANEL Routine 06/20/2018 12:58 PM CDT LIPID PANEL Routine 06/20/2018 12:58 PM CDT ZZESTIMATED GFR Routine 06/20/2018 12:58 PM CDT IONIZED CALCIUM Routine 06/20/2018 12:58 PM CDT PHOSPHORUS LEVEL Routine 06/20/2018 12:58 PM CDT MAGNESIUM LEVEL Routine 06/20/2018 12:58 PM CDT BASIC METABOLIC PANEL Routine 06/20/2018 12:58 PM CDT POC GLUCOSE Routine 06/20/2018 12:49 PM CDT after 09/24/2017 Results XR Chest 1 Vw Portable (09/16/2018 10:06 AM)Only the most recent of6 resultswithin the time period is included. Narrative Performed At EXAMINATION:XR CHEST 1 VW PORTABLE [facility] CLINICAL HISTORY:Post ablation COMPARISON:To previous study from 06/23/2018 IMPRESSION: Transvenous pacemaker is present. The heart is normal in appearance and the lungs are hyperinflated. Minimal atelectatic changes in the left lung base present. Small granuloma in the left lung base is present. Lungs otherwise are clear. [facility]-[id number] Procedure Note Hm Interface, Radiology Results Incoming - 09/16/2018 10:17 AM CDT EXAMINATION: XR CHEST 1 VW PORTABLE CLINICAL HISTORY: Post ablation COMPARISON: To previous study from 06/23/2018 IMPRESSION: Transvenous pacemaker is present. The heart is normal in appearance and the lungs are hyperinflated. Minimal atelectatic changes in the left lung base present. Small granuloma in the left lung base is present. Lungs otherwise are clear. [facility]-[id number] Performing Organization Address City/[facility]/Zipcode Phone Number [facility] [address] [place] [address] Estimated GFR (09/16/2018 4:30 AM)Only the most recent of2 resultswithin the time period is included. Estimated GFR 61 mL/min/1.73 m2 [facility] DEPARTMENT OF Comment: PATHOLOGY AND GENOMIC CatergoryUnitsInterpretation MEDICINE G1 >=90 Normal or high G2 60-89Mildly decreased G8o06-68Vifwrh to moderately decreased M1p11-77Oswxpcaujl to severely decreased G4 15-29Severely decreased G5 <15Kidney failure The eGFR was calculated using the Chronic Kidney Disease Epidemiology Collaboration (CKD-EPI) equation. Interpretation is based on recommendations of the National Kidney Foundation-Kidney Disease Outcomes Quality Initiative (NKF-KDOQI) published in 2014. Specimen Plasma specimen Performing Organization Address City/State/Zipcode Phone Number [facility] DEPARTMENT OF PATHOLOGY AND [address] [place] [address] GENOMIC MEDICINE CBC with platelet and differential (09/16/2018 4:30 AM)Only the most recent of6 resultswithin the time period is included. WBC 11.93 (H) 4.50 - 11.00 k/uL [facility] DEPARTMENT OF PATHOLOGY AND GENOMIC MEDICINE RBC 3.53 (L) 4.20 - 5.50 m/uL [facility] DEPARTMENT OF PATHOLOGY AND GENOMIC MEDICINE HGB 10.6 (L) 12.0 - 16.0 g/dL [facility] DEPARTMENT OF PATHOLOGY AND GENOMIC MEDICINE HCT 33.1 (L) 37.0 - 47.0 % [facility] DEPARTMENT OF PATHOLOGY AND GENOMIC MEDICINE MCV 93.8 82.0 - 100.0 fL [facility] DEPARTMENT OF PATHOLOGY AND GENOMIC MEDICINE MCH 30.0 27.0 - 34.0 pg [facility] DEPARTMENT OF PATHOLOGY AND GENOMIC MEDICINE MCHC 32.0 31.0 - 37.0 g/dL [facility] DEPARTMENT OF PATHOLOGY AND GENOMIC MEDICINE RDW - SD 49.5 37.0 - 55.0 fL [facility] DEPARTMENT OF PATHOLOGY AND GENOMIC MEDICINE MPV 10.1 8.8 - 13.2 fL [facility] DEPARTMENT OF PATHOLOGY AND GENOMIC MEDICINE Platelet count 167 150 - 400 k/uL [facility] DEPARTMENT OF PATHOLOGY AND GENOMIC MEDICINE Nucleated RBC 0.00 /100 WBC [facility] DEPARTMENT OF PATHOLOGY AND GENOMIC MEDICINE Neutrophils 74.4 (H) 39.0 - 69.0 % [facility] DEPARTMENT OF PATHOLOGY AND GENOMIC MEDICINE Lymphocytes 17.8 (L) 25.0 - 45.0 % [facility] DEPARTMENT OF PATHOLOGY AND GENOMIC MEDICINE Monocytes 7.0 0.0 - 10.0 % [facility] DEPARTMENT OF PATHOLOGY AND GENOMIC MEDICINE Eosinophils 0.3 0.0 - 5.0 % [facility] DEPARTMENT OF PATHOLOGY AND GENOMIC MEDICINE Basophils 0.1 0.0 - 1.0 % [facility] DEPARTMENT OF PATHOLOGY AND GENOMIC MEDICINE Immature granulocytes 0.4Comment: 0.0 - 1.0 % [facility] DEPARTMENT OF "Immature PATHOLOGY AND GENOMIC granulocytes" MEDICINE (promyelocytes, myelocytes, metamyelocytes) Specimen Blood Performing Organization Address City/State/Zipcode Phone Number [facility] DEPARTMENT OF PATHOLOGY AND [address] [place] [address] [facility] MEDICINE Basic metabolic panel (09/16/2018 4:30 AM)Only the most recent of7 resultswithin the time period is included. Sodium 139 135 - 148 mEq/L [facility] DEPARTMENT OF PATHOLOGY AND GENOMIC MEDICINE Potassium 3.4 (L) 3.5 - 5.0 mEq/L [facility] DEPARTMENT OF PATHOLOGY AND GENOMIC MEDICINE Chloride 99 98 - 112 mEq/L [facility] DEPARTMENT OF PATHOLOGY AND GENOMIC MEDICINE CO2 22 (L) 24 - 31 mEq/L [facility] DEPARTMENT OF PATHOLOGY AND GENOMIC MEDICINE Anion gap 18@ANIO (H) 7 - 15 mEq/L [facility] DEPARTMENT OF PATHOLOGY AND GENOMIC MEDICINE BUN 15 8 - 23 mg/dL [facility] DEPARTMENT OF PATHOLOGY AND GENOMIC MEDICINE Creatinine 0.94 (H) 0.50 - 0.90 mg/dL [facility] DEPARTMENT OF PATHOLOGY AND GENOMIC MEDICINE Glucose 94 65 - 99 mg/dL [facility] DEPARTMENT OF PATHOLOGY AND GENOMIC MEDICINE Calcium 9.2 8.8 - 10.2 mg/dL [facility] DEPARTMENT OF PATHOLOGY AND GENOMIC MEDICINE Specimen Plasma specimen Performing Organization Address City/State/Zipcode Phone Number [facility] DEPARTMENT OF PATHOLOGY AND [address] [place], [place] [id number] [place] [address] Cv electrophysiology procedure (09/15/2018 1:04 PM) Impressions Performed At -Successful CTI ablation with bidirectional block for flutter seen on CUP[facility] device interrogation -Successful pulmonary veins isolation x4 with entrance and exit block -Occasional firing seen in LPV with high dose Isuprel -No sustained arrhythmia seen after high dose Isuprel and with CS burst pacing RECOMMENDATIONS: 1. Monitor on telemetry overnight 2. Bedrest for 4 hours after sheaths removal 3. Restart Xarelto tonight 4. Continue amiodarone 200mg daily 5- Lasix 20 mg IV when patient in recovery Narrative Performed At DATE OF OPERATION: 09/15/2018 [facility] DIRECTOR NICU: Aric Walters MD PREOPERATIVE DIAGNOSES: -Paroxysmal atrial fibrillation -Typical atrial flutter -Hypertension -SSS s/p DC pacemaker (MDT-2017) POSTOPERATIVE DIAGNOSES: -Paroxysmal atrial fibrillation -Typical atrial flutter -Hypertension -SSS s/p DC pacemaker (MDT-2018) PROCEDURES PERFORMED: -Ultrasound guided vascular access -Arterial line placement -Afib ablation with PVI -CTI ablation -3D mapping -Stimulation after drug infusion -Intra cardiac echocardiography (ICE) COMPLICATIONS: None ESTIMATED BLOOD LOSS: <30cc HISTORY OF PRESENT ILLNESS: In brief, this is a 73 years old male with past medical history as above, with symptomatic paroxysmal atrial fibrillation refractory to anti-arrhythmics (flecainide and sotalol) but now more controlled with amiodarone who presents today for atrial flutter andfibrillation ablation, to avoid terminal make up operator use of amiodarone. PROCEDURE IN DETAIL: Consent was obtained from the patient after a full explanation of the risks and benefits of the procedure. The patient was brought to the electrophysiology lab in the fasting state. The patient was prepared and draped in a sterile fashion. General anesthesia with intratracheal ventilation administered by the anesthesia service was used for the procedure. Esophageal temperature monitoring was performed throughout the case using CIRCA catheter. Patient presented to the EP lab in [facility]. Sheaths were placed using modified Seldinger technique. Three venous sheaths (8Fr, long 7Fr and long 9Fr sheath) were placed in the right femoral vein using ultrasound guidance without complication. One 4Fr arterial sheath was placed in the right femoral artery using ultrasound guidance without complication. A intracardiac echocardiography catheter (ICE) was inserted via the 9Fr sheath and advanced into the right atrium and the right ventricle. At baseline, there was no pericardial effusion and normal EF. Using SOUND, the CTI, CS os, fossa, LPVs, RPVs were marked. The left atrium was noted to be mildly enlarged and measured at 4.1cm. MV calcification was noted. The ICE catheter was later used to guide transseptal puncture and monitor for procedure complications. Next, the RFV 8Fr sheath was upgraded to a medium curl Agilis sheath, through which a SmartTouch SF catheter, DF curve was advanced to the RA, and a Fast Anatomic Map (FAM) was done for the IVC, RA septum, fossa and SVC. A decapolar diagnostic catheter was then advanced into the coronary sinus. We proceeded first with CTI line ablation. After marking the His cloud on Carto 3D map, the catheter was advanced to the TV end of the line and an ablation line was performed from the TV back to the IVC with bidirectional block confirmed. Next, we turned out attention to left sided access. After titrating heparin drip to achieve an ACT > 350 sec, transseptal puncture was performed with [place] long needle (requiring RF) using ICE guidance. Left (17 mmHg) atrial pressure was measured to assess intracardiac filling pressures.There were no complications.Following transseptal puncture, Agilis sheath was advanced into the LA, and the ablator was then exchanged to a DF Pentarray catheter. A detailed 3D electroanatomical and voltage map was created while in sinus rhythm in the left atrium using CARTO mapping system. Mostly normal voltage was seen throughout. After exchanging the Pentarray to the ablation catheter, we proceeded to pulmonary veins isolation. The left pulmonary veins were circumferentially isolated as a common os using RF ablation.Left veins were isolated from the first pass. The right pulmonary veins were circumferentially isolated as a common os using RF ablation. Right veins were isolated from the first pass.Prior to ablation of right sided veins, pacing was performed and right phrenic nerve course was avoided (PN was not captured despite high output pacing). 30-40 W for 30 sec and impedance drop of 10-15 ohms was targeted in the anterior sites. Posterior sites used 20 W for 8-15 sec, or more frequently high power, short duration lesions (40-50W for 4-5 secs) were used (esophagus was noted close to posterior RIPV). Exit and entrance block was confirmed at all 4 veins.The left and right pulmonary veins were confirmed to remain isolated. With Isuprel infusion up to 20mcg/min, no vein reconnection and non-PV trigger was seen. Occasional independent firing was seen in LPVs. CS burst pacing from 250ms to 180msec during isuprel washout, no afib or organized AT/flutter was induced. Only non-sustained AF was seen (<30sec before terminating spontaneously). Heparin was stopped and catheters were withdrawn into the RA and a CTI line was confirmed with bidirectional block. Transblock conduction time was 140-160msec. At this time case was ended. HV interval was measured at 51msec and ZE=540rh. Post-procedure ICE showed no pericardial effusion.At this time, GA was stopped and patient was extubated; No immediate complications. Protamine was given at the end of the procedure.Sheaths were pulled in the lab and patient was transferred to the PACU in a stable condition. Performing Organization Address City/State/Zipcode Phone Number [facility] [address] [place] [address] Activated clotting time (09/15/2018 1:03 PM)Only the most recent of5 resultswithin the time period is included. Activated clotting time 152 96 - 152 sec [facility] DEPARTMENT OF Comment: PATHOLOGY AND GENOMIC Meter ID: [id number] MEDICINE Pipe Cleaning Machine Operator: Marga Chang Performing Organization Address City/[facility] Centercode Phone Number [facility] DEPARTMENT OF PATHOLOGY AND [address] [place] [address] Prothrombin time with INR (09/15/2018 7:55 AM)Only the most recent of3 resultswithin the time period is included. Prothrombin time 14.4 12.0 - 15.0 sec [facility] DEPARTMENT OF PATHOLOGY AND GENOMIC MEDICINE INR 1.1 [facility] DEPARTMENT OF Comment: PATHOLOGY AND GENOMIC The International Normalized Ratio (INR) is a therapeutic MEDICINE monitoring tool for patients who are stable on oral anticoagulant therapy. An INR of 2.0-3.0 is suggested for deep vein thrombosis/pulmonary embolism. Specimen Blood Performing Organization Address [facility] Centercony Phone Number [facility] DEPARTMENT OF PATHOLOGY AND [address] [place] [address] GENOMIC MEDICINE Type and screen (09/15/2018 7:00 AM)Only the most recent of2 resultswithin the time period is included. ABO grouping A [facility] DEPARTMENT OF PATHOLOGY AND GENOMIC MEDICINE Rh type POS [facility] DEPARTMENT OF PATHOLOGY AND GENOMIC MEDICINE Antibody screen (gel) NEG [facility] DEPARTMENT OF PATHOLOGY AND GENOMIC MEDICINE Specimen Blood Performing Organization Address [facility] Phone Number [facility] DEPARTMENT OF PATHOLOGY AND [address] [place] [address] ECG 12 lead (09/15/2018 6:44 AM)Only the most recent of4 resultswithin the time period is included. Ventricular rate 62 [facility] Atrial rate 62 [facility] MUSE WA interval 206 [facility] MUSE QRSD interval 100 [facility] QT interval 500 [facility] QTC interval 507 [facility] P axis 1 -21 [facility] QRS axis 1 -58 [facility] T wave axis 37 [facility] MUSE EKG impression Atrial-paced rhythm-Left anterior fascicular block-Prolonged QT -Abnormal ECG-In automated comparison with ECG of 23-JUN-2018 04:43,-Electronic atrial pacemaker has replaced Atrial fibrillation-Electroni [facility] MUSE mary Signed By Aakash Alonso MD ([id number]) on 09/15/2018 6:34:13 PM Performing Organization Address City/[facility] Phone Number [facility] MUSE [address] [place] [phone] POC glucose (06/24/2018 2:17 PM)Only the most recent of25 resultswithin the time period is included. POC glucose 98 65 - 99 mg/dL [facility] DEPARTMENT OF PATHOLOGY AND Comment: GENOMIC MEDICINE [facility] Notified RN Meter ID: [id number] Pipe Cleaning Machine Operator: Kishore Valdez Performing Organization Address City/[facility] Phone Number [facility] DEPARTMENT OF PATHOLOGY AND [address] [place] [phone] GENOMIC MEDICINE Estimated GFR (06/24/2018 5:33 AM)Only the most recent of5 resultswithin the time period is included. GFR Non Af Amer 62 mL/min/1.73 m2 [facility] DEPARTMENT OF PATHOLOGY AND GENOMIC MEDICINE GFR Af Amer 75 mL/min/1.73 m2 [facility] DEPARTMENT OF Comment: PATHOLOGY AND GENOMIC Chronic kidney disease: <60 mL/min/1.73m2 MEDICINE Kidney failure: <15 mL/min/1.73m2 The estimated GFR is calculated from the IDMS-traceable Modification of Diet in Renal Disease Equation. The accuracy of the calculation is poor when the creatinine is normal. Calculated values >90 mL/min/1.73m2 are not reported. This equation has not been validated in children (<18 years), women, the elderly (>70 years), or ethnic groups other than Caucasians and Americans. Specimen Plasma specimen Performing Organization Address [facility] Phone Number [facility] DEPARTMENT OF PATHOLOGY AND [address] [place], [place] [id number] [facility] CBC hemogram (06/24/2018 5:33 AM) WBC 9.03 4.50 - 11.00 k/uL [facility] DEPARTMENT OF PATHOLOGY AND GENOMIC MEDICINE RBC 4.07 (L) 4.20 - 5.50 m/uL [facility] DEPARTMENT OF PATHOLOGY AND GENOMIC MEDICINE HGB 12.2 12.0 - 16.0 g/dL [facility] DEPARTMENT OF PATHOLOGY AND GENOMIC MEDICINE HCT 37.3 37.0 - 47.0 % [facility] DEPARTMENT OF PATHOLOGY AND GENOMIC MEDICINE MCV 91.6 82.0 - 100.0 fL [facility] DEPARTMENT OF PATHOLOGY AND GENOMIC MEDICINE MCH 30.0 27.0 - 34.0 pg [facility] DEPARTMENT OF PATHOLOGY AND GENOMIC MEDICINE MCHC 32.7 31.0 - 37.0 g/dL [facility] DEPARTMENT OF PATHOLOGY AND GENOMIC MEDICINE RDW - SD 44.9 37.0 - 55.0 fL [facility] DEPARTMENT OF PATHOLOGY AND GENOMIC MEDICINE MPV 9.9 8.8 - 13.2 fL [facility] DEPARTMENT OF PATHOLOGY AND GENOMIC MEDICINE Platelet count 185 150 - 400 k/uL [facility] DEPARTMENT OF PATHOLOGY AND GENOMIC MEDICINE Nucleated RBC 0.00 /100 WBC [facility] DEPARTMENT OF PATHOLOGY AND GENOMIC MEDICINE Specimen Blood Performing Organization Address [facility] Phone Number [facility] DEPARTMENT OF PATHOLOGY AND [address] [place] [address] GENOMIC MEDICINE Phosphorus level (06/24/2018 5:33 AM)Only the most recent of5 resultswithin the time period is included. Phosphorus 3.2 2.4 - 4.5 mg/dL [facility] DEPARTMENT OF PATHOLOGY AND GENOMIC MEDICINE Specimen Plasma specimen Performing Organization Address [facility] Phone Number [facility] DEPARTMENT OF PATHOLOGY AND [address] [place] [address] Magnesium level (06/24/2018 5:33 AM)Only the most recent of5 resultswithin the time period is included. Magnesium 2.6 (H) 1.6 - 2.4 mg/dL [facility] DEPARTMENT OF PATHOLOGY AND GENOMIC MEDICINE Specimen Plasma specimen Performing Organization Address [facility] Phone Number [facility] DEPARTMENT OF PATHOLOGY AND [address] [place] [address] MEDICINE Ionized calcium (06/24/2018 5:33 AM)Only the most recent of5 resultswithin the time period is included. pH 7.50 [facility] DEPARTMENT OF PATHOLOGY AND GENOMIC MEDICINE Ionized calcium 1.13 1.11 - 1.32 mmol/L [facility] DEPARTMENT OF PATHOLOGY AND GENOMIC MEDICINE Specimen Plasma specimen Performing Organization Address [facility]ode Phone Number [facility] DEPARTMENT OF PATHOLOGY AND [address] [place] [address] MEDICINE ECG Pre/Post Op-Tomorrow (06/23/2018 4:43 AM) Ventricular rate 84 [facility] Atrial rate 97 [facility] QRSD interval 108 [facility] QT interval 452 [facility] QTC interval 534 [facility] QRS axis 1 -51 [facility] T wave axis 57 [facility] EKG impression Atrial fibrillation-Left anterior fascicular [facility] MUSE block- - Performing Organization Address [facility] Centercode Phone Number [facility] [address] [place] [address] Partial thromboplastin time, activated (06/23/2018 1:20 AM)Only the most recent of2 resultswithin the time period is included. PTT 33.2 23.0 - 36.0 sec [facility] DEPARTMENT OF PATHOLOGY Comment: AND GENOMIC MEDICINE PTT therapeutic range for unfractionated heparin is 61.0-112.0 seconds which corresponds to Anti-Xa 0.3-0.7 U/ml. Specimen Blood Performing Organization Address [facility] Phone Number [facility] DEPARTMENT OF PATHOLOGY AND [address] [place] [address] [facility] Cv electrophysiology procedure (06/22/2018 7:50 PM) Narrative Performed At TITLE OF PROCEDURE: CUPID Dual-chamber pacemaker placement. PREOPERATIVE DIAGNOSES: 1.Syncope. 2.Presyncope. 3.Symptomatic bradycardia. 4.Paroxysmal atrial fibrillation. 5.Sick sinus syndrome. POSTOPERATIVE DIAGNOSES: 1.Syncope. 2.Presyncope. 3.Symptomatic bradycardia. 4.Paroxysmal atrial fibrillation. 5.Sick sinus syndrome. PROCEDURES PERFORMED: 1.IV conscious sedation. 2.Cardiac fluoroscopy. 3.Left upper extremity venogram. 4.Dual-chamber pacemaker placement. BRIEF HISTORY AND CLINICAL BACKGROUND: This is a 73-year-old woman with the aforementioned medical problems.She had syncope at home, was taken to the Emergency Room where she had noted to be in sinus rhythm, sinus bradycardia.Her sister who was observing her at that time while she was in the ER noted that her heart rate dropped and that the monitor at times did not show any pulse and read 0 concomitant with her sister feeling presyncopal and dizzy.The patient also has a history of rapid AFib with left bundle-branch block aberrancy and the Emergency Room in [facility] indicated she required Life Flight to [facility] where she has been in the ICU receiving oral amiodarone.She comes now for pacemaker placement.During the case, she developed rapid AFib.Hence, she returned to the ICU with a permanent pacemaker and we will initiate IV amiodarone as well as oral amiodarone. PROCEDURE: Informed consent was obtained.Intravenous antibiotics were infused appropriately.The chest was prepped and draped in the usual sterile fashion and local anesthesia was achieved with 1% lidocaine.An upper extremity venogram was performed to identify the location of the axillary and subclavian vein and access was achieved.Guide wires were introduced under fluoroscopic guidance and advanced into the inferior vena cava. Using a sharp knife, cautery, and blunt dissection, a pocket was formed below the plane of the pectoralis fascia.The RV and atrial leads were placed into the venous system using standard technique.The RV pace/sense lead was placed into the RV apex and tested.After the thresholds were deemed adequate the lead was anchored in place.Maximum output pacing was performed to ensure that there was no diaphragmatic stimulation, and none was seen.The lead was anchored in place using 0-Ethibond sutures around the lead collar. A bipolar screw-in lead was affixed into the right atrium.Sensing and pacing thresholds were then performed.After they were found to be adequate, maximum output pacing was performed to ensure that there was no diaphragmatic stimulation, and none was seen.The lead was anchored in place using 0-Ethibond sutures around the lead collar. Fluoroscopy was repeated to ensure proper lead placement.The pacemaker pocket was visually, manually, and radiographically inspected to ensure there were no gauze or sponges in the pocket.It was then washed using antibiotic solution. Gloves and drapes were changed as needed.The pacemaker generator packet was then opened and was attached to the leads and the set screws were tightened. Each lead was gently tugged upon to ensure it was affixed within the header. After proper pacemaker function was confirmed, the lead slack and pacemaker were placed in the pocket.The pacemaker was anchored to the pectoralis muscle using 0-Ethibond suture.The skin incision was then closed in layers using 0-Vicryl sutures.Final skin closure was achieved with stainless steel anjelica and skin adhesive. COMPLICATIONS: None. FINDINGS: 1.The right ventricular apical pacing lead is a ProPlantronic 5076, serial #[id number].Measured R-waves 7 millivolts, pacing threshold 0.4 volts, impedance 928 ohms. 2.The atrial lead is a 5076, serial #[id number], measured flutter waves or fib waves 1.1 millivolt, pacing threshold not obtained impedance 891 ohms. 3.The pacemaker is a Medtronic [place] XT DR MRI model W1DR01, serial #[id number]. 4.Estimated blood loss 10 mL or less. CONCLUSIONS: Successful dual-chamber pacemaker insertion. RECOMMENDATIONS: 1.Initiate IV amiodarone. 2.Continue oral amiodarone. 3.Resume oral anticoagulants in the morning. Performing Organization Address [facility] Phone Number [facility] [address] [place] [address] Thyroid stimulating hormone (06/20/2018 3:36 PM) TSH 0.99 0.27 - 4.20 uIU/mL [facility] DEPARTMENT OF PATHOLOGY AND GENOMIC MEDICINE Specimen Plasma specimen Performing Organization Address [facility] Phone Number [facility] DEPARTMENT OF PATHOLOGY AND [address] [place] [address] Potassium level (06/20/2018 3:36 PM) Potassium 3.6 3.5 - 5.0 mEq/L [facility] DEPARTMENT OF PATHOLOGY AND GENOMIC MEDICINE Specimen Plasma specimen Performing Organization Address [facility] Phone Number [facility] DEPARTMENT OF PATHOLOGY AND [address] [place] [address] Hemoglobin A1c (06/20/2018 2:37 PM) Hemoglobin A1C 5.3 4.0 - 5.6 % [facility] DEPARTMENT OF PATHOLOGY Comment: AND GENOMIC MEDICINE HbA1c cutoffs for diagnosing diabetes: 4.0% - 5.6%=normal 5.7% - 6.4%=increased risk for diabetes (prediabetes) >=6.5%=diabetes Goals for glycemic control (ADA 2016) < 7.0%Target for non adults with diabetes. More or less stringent targets may be appropriate for individual patients. <7.5% Target for Children and adolescents with type 1 diabetes. Performing Organization Address [facility] Phone Number [facility] DEPARTMENT OF PATHOLOGY AND [address] [place] [address] Echocardiogram complete w contrast and 3D if needed (06/20/2018 2:20 PM) Narrative Performed At [facility] Echocardiography Report [id number], [place] [address] Pat.Name:BERNABE SAM.ID:[id number] .Date: 06/20/2018Refer.MD:VALERIA SANTIAGO MD Exam Time: 2:31:00 PMStudy Type:Routine Echo Height:63.78in Weight:149.6lb BSA: 1.73 m2 DOBAge:1945,73Y Sex: FEMALEBP:172/79 HR:50 bpmSonogrphr: BERNADETTE Marrero Pat. Stat.:Inpatient Room:[facility] Study Status:Final Echo Event ID:[id number] Order ID:[id number] Reason for Study:Atrial fibrillation Procedures:2D Echo, Colorflow Doppler, Portable Race:C SUMMARY: LV size is normal. There is mild concentric LV hypertrophy. Estimated EF is 60-64%. Diastolic dysfunction Grade II (Moderate): Impaired relaxation with elevated LV filling pressures. LA volume is severely enlarged. Mild aortic regurgitation. Mild tricuspid regurgitation. Estimated PA systolic pressure is 26 mmHg, assuming a mean RAP of 5 mmHg. FINDINGS: LV: LV size is normal. There is mild concentric LV hypertrophy. LVEF is normal. Difficult to assess regional wall motion; howeverit appears grossly normal. Estimated EF is 60-64%. RV: RV size is normal. RV systolic function is normal. LA: LA volume is severely enlarged. RA: RA volume is mildly enlarged. AO: Aortic root diameter is normal. PRAVEENA: No pericardial effusion. AV: No structural AV abnormalities noted. Mild aortic regurgitation. MV: Severe mitral annular calcification. PV: Pulmonic valve not well seen. TV: No structural TV abnormalities noted. Mild tricuspid regurgitation Berry: Diastolic dysfunction Grade II (Moderate): Impaired relaxationwith elevated LV filling pressures. Other:Estimated PA systolic pressure is 26 mmHg, assuming a mean RAPof 5 mmHg. MEASUREMENTS: 2D Parasternal Long [place] LVOT 1.9 cmLA Ds3.7 cm LVIDd3.7 cmIndex2.1 cm/m Ao An2.3 cm LVIDs2.6 cmAo Rtd 3.3 cm Index1.9 cm/m LV%fs 29.8 % LV Ylhv009.3 g(87-129) IVSd 1.4 cmLVM Euzos063.3 g/m2 LVPWd1.4 cmRWT0.7 LA Sng Plane LA Area 27.7 cm2(8.8-23.4) LA Vol85.2 ml Index49.3 ml/m LA LngAx 7.5 cm RA Sng Plane RA Area 22.2 cm2(8.3-19.5) RA Vol63.6 ml Index36.8 ml/m RA LngAx 6.5 cm DOPPLER LVOT Stroke Vol LVOT 1.9 cmLVOT CO4.3 l/min LVOT TVI29.5 cmLVOT CI2.5 l/m/m2 LVOT Tm348 tzwaSV05 bpm LVOT SV 83.7 ml MV For Flow/Valve Assess MV pkVel 144.2 cm/sMV Dec T 417 msec MV pkPG8.3 mmHgMV TVI49 cm MV Mean G2.4 mmHgMV Area P1/2t1.8 cm2(4-6) Signed 06/20/2018 05:44 PM Bethany Grier MD Procedure Note Interface, Radiology Results In - 06/20/2018 5:46 PM CDT Echocardiography Report [id number] [address] Pat.Name: BERNABE SAM Perla.ID: [id number] .Date: 06/20/2018 Refer.MD: VALERIA SANTIAGO MD Exam Time: 2:31:00 PM Study Type:Routine Echo Height: 63.78in Weight: 149.6lb BSA: 1.73 m2 Age: 6 1945,73Y Sex: FEMALE BP: 172/79 HR: 50 bpm Sonogrphr: BERNADETTE Marrero. Stat.:Inpatient Room: [facility] Study Status:Final Echo Event ID:[id number] Order ID: [id number] Reason for Study:Atrial fibrillation Procedures:2D Echo, Colorflow Doppler, Portable Race: C SUMMARY: LV size is normal. There is mild concentric LV hypertrophy. Estimated EF is 60-64%. Diastolic dysfunction Grade II (Moderate): Impaired relaxation with elevated LV filling pressures. LA volume is severely enlarged. Mild aortic regurgitation. Mild tricuspid regurgitation. Estimated PA systolic pressure is 26 mmHg, assuming a mean RAP of 5 mmHg. FINDINGS: LV: LV size is normal. There is mild concentric LV hypertrophy. LV EF is normal. Difficult to assess regional wall motion; however it appears grossly normal. Estimated EF is 60-64%. RV: RV size is normal. RV systolic function is normal. LA: LA volume is severely enlarged. RA: RA volume is mildly enlarged. AO: Aortic root diameter is normal. PRAVEENA: No pericardial effusion. AV: No structural AV abnormalities noted. Mild aortic regurgitation. MV: Severe mitral annular calcification. PV: Pulmonic valve not well seen. TV: No structural TV abnormalities noted. Mild tricuspid regurgitation Berry: Diastolic dysfunction Grade II (Moderate): Impaired relaxation with elevated LV filling pressures. Other: Estimated PA systolic pressure is 26 mmHg, assuming a mean RAP of 5 mmHg. MEASUREMENTS: 2D Parasternal [place] LVOT 1.9 cm LA Ds 3.7 cm LVIDd 3.7 cm Index 2.1 cm/m Ao An 2.3 cm LVIDs 2.6 cm Ao Rtd 3.3 cm Index 1.9 cm/m LV%fs 29.8 % LV Mass 187.3 g (87-129) IVSd 1.4 cm LVM Index 108.3 g/m2 LVPWd 1.4 cm RWT 0.7 LA Sng Plane LA Area 27.7 cm2 (8.8-23.4) LA Vol 85.2 ml Index 49.3 ml/m LA LngAx 7.5 cm RA Sng Plane RA Area 22.2 cm2 (8.3-19.5) RA Vol 63.6 ml Index 36.8 ml/m RA LngAx 6.5 cm DOPPLER LVOT Stroke Vol LVOT 1.9 cm LVOT CO 4.3 l/min LVOT TVI 29.5 cm LVOT CI 2.5 l/m/m2 LVOT Tm 348 msec HR 51 bpm LVOT SV 83.7 ml MV For Flow/Valve Assess MV pkVel 144.2 cm/s MV Dec T 417 msec MV pkPG 8.3 mmHg MV TVI 49 cm MV Mean G 2.4 mmHg MV Area P1/2t 1.8 cm2 (4-6) Signed 06/20/2018 05:44 PM Bethany Grier MD Performing Organization Address City/State/Zipcode Phone Number [facility] [address] [place] [address] Hepatic function panel (06/20/2018 12:58 PM) Albumin 4.3 3.5 - 5.0 g/dL [facility] DEPARTMENT OF PATHOLOGY AND GENOMIC MEDICINE Total bilirubin 0.6 0.0 - 1.2 mg/dL [facility] DEPARTMENT OF PATHOLOGY AND GENOMIC MEDICINE Bilirubin direct <0.2 0.0 - 0.3 mg/dL [facility] DEPARTMENT OF PATHOLOGY AND GENOMIC MEDICINE Alkaline phosphatase 44 35 - 104 U/L [facility] DEPARTMENT OF PATHOLOGY AND GENOMIC MEDICINE Protein 7.6 6.3 - 8.3 g/dL [facility] DEPARTMENT OF Comment: PATHOLOGY AND GENOMIC [place] 4.6-7.0 g/dL MEDICINE 1 week 4.4-7.6 g/dL 7 months-1year5.1-7.3 g/dL 1-2 years5.6-7.5 g/dL >3 years6.0-8.0 g/dL 18-150 6.3-8.3 g/dL ALT 21 5 - 50 U/L [facility] DEPARTMENT OF PATHOLOGY AND GENOMIC MEDICINE AST SEE COMMENTComment: 10 - 35 U/L [facility] DEPARTMENT OF Footnote--------- PATHOLOGY AND GENOMIC MEDICINE Specimen Plasma specimen Performing Organization Address City/State/Zipcode Phone Number [facility] DEPARTMENT OF PATHOLOGY AND [address] [place] [address] GENOMIC MEDICINE Lipid panel (06/20/2018 12:58 PM) Cholesterol 286 (H) <200 mg/dL [facility] DEPARTMENT OF PATHOLOGY AND GENOMIC MEDICINE Triglycerides 123 <150 mg/dL [facility] DEPARTMENT OF PATHOLOGY AND GENOMIC MEDICINE HDL cholesterol 48 >40 mg/dL [facility] DEPARTMENT OF PATHOLOGY AND GENOMIC MEDICINE LDL cholesterol 218 (H)Comment: Result <100 mg/dL [facility] DEPARTMENT obtained by direct LDL PATHOLOGY AND GENOMIC measurement MEDICINE Lipid panel interpretation SeeBelow [facility] DEPARTMENT OF Comment: PATHOLOGY AND GENOMIC Total Cholesterol (mg/dL) MEDICINE <200 Desirable [id number]-qbis >=240High Triglycerides (mg/dL) <150 Normal [id number] 200-499High >=500Very high HDL Cholesterol (mg/dL) <40Low (male) <40Low (female) LDL Cholesterol (mg/dL) <100 Optimal 100-129Near or above optimal [id number]-dkaa 160-189High >=190Very high Risk Catergories that modify LDL goals. Risk CatergoriesLDL goal (mg/dL) CHD and CHD risk equivalent<100 (10-year risk >20%) Multiple (2+) risk factors <130 (10-year risk=<20%) 0-1 risk factors <160 (<10-year risk) Defining levels of lipids in metabolic syndrome Triglycerides>=150 mg/dL HDL Cholesterol Men<40 mg/dL Women<40 mg/dL Non-HDL cholesterol is a second target for therapy in persons with high triglycerides (>=200 mg/dL) Specimen Plasma specimen Performing Organization Address City/State/Zipcode Phone Number [facility] DEPARTMENT OF PATHOLOGY AND [address] [place] [address] GENOMIC MEDICINE after 09/24/2017 Insurance Payer Benefit Plan / Group Subscriber ID Type Phone Address [employer] MEDICARE AETNA MEDICARE HMO/PPO [facility] xxxxxxxx HMO [phone] [id number]
[2018-09-25] MEDS ORDERED: ONDANSETRON 4 MG/2 ML VIAL ONE ×2 (07:03→08:26)
[2018-09-25 07:09] LABS: Absolute Lymphocytes (CBC) 2.4 K/uL (0.7-4.9); Absolute Monocytes 0.5 K/uL (0.1-1.3); Absolute Neutrophil 2.8 K/uL (1.8-8.0); Basophils % 0.8 % (0-1.3); Eosinophils % 1.2 % (0-4.4); Hematocrit 36.6 % (36.0-45.0); Lymphocytes % 41.7 % (15.3-44.8); MCH 30.3 pg (27.0-35.0); MCV 89.2 fL (80-100); MPV 7.5 fL (7.6-11.3); Monocytes % 8.7 % (3.3-12.3); RBC Red Blood Cell Count 4.11 M/uL (3.86-4.86)
[2018-09-25 07:10] LABS: Protime INR 2.39
[2018-09-25 07:29] LABS: Albumin 4.3 g/dL (3.4-5.0); Bilirubin Direct 0.1 mg/dL (0-0.2); Bilirubin Total 0.4 mg/dL (0.2-1.0); Magnesium 2.3 mg/dL (1.8-2.4); Potassium 3.3 mmol/L (3.5-5.1); Protein, Total 7.5 g/dL (6.4-8.2); Troponin (Emerg Dept Use Only) 0.02 ng/mL (0.0-0.045)
[2018-09-25] MEDS ORDERED: FENTANYL CITR 100 MCG/2 ML ONE (07:31)
--- NOTE | 2018-09-25 07:36 | ER ---
Nurse's Notes [facility] Name: Bernabe Ty Age: 73 yrs Sex: Female : 1945 Arrival Date: 09/25/2018 Time: 06:20 Bed 14 Private MD: Zay Florez V Diagnosis: Pain in left arm Presentation: 09/25 06:31 Presenting complaint: Patient states: she had a heart ablation on the for atrial bb fibrillation afterwards she was having chest pain which she was told was normal and it improved but now she is having severe pain to her left forearm. Pt states they attempted arterial access through her left wrist for the ablation but it was not successful and her wrist was swollen after the attempt and now is bruised. Transition of care: patient was not received from another setting of care. Onset of symptoms was September 25, 2018. Risk Assessment: Do you want to hurt yourself or someone else? Patient reports no desire to harm self or others. Initial Sepsis Screen: Does the patient meet any 2 criteria? No. Patient's initial sepsis screen is negative. Does the patient have a suspected source of infection? No. Patient's initial sepsis screen is negative. Care prior to arrival: None. 06:31 Method Of Arrival: Ambulatory bb 06:31 Acuity: CADY 2 bb Historical: - Allergies: 06:41 Codeine; bb 06:41 Hydrocodone-Acetaminophen; bb 06:41 Sulfa (Sulfonamide Antibiotics); bb - Home Meds: 06:41 Xarelto 20 mg Oral tab 1 tab once daily [Active]; losartan-hydrochlorothiazide 100-25 bb mg oral tab 1 tab once daily [Active]; Amiodarone Oral [Active]; - PMHx: 06:41 Atrial Fib; Hypertension; bb - PSHx: 06:41 heart ablation; pacemaker; Hysterectomy; ; back sx; sinus sx; bb - Immunization history:: Adult Immunizations up to date. - Social history:: Smoking status: Patient/guardian denies using tobacco, Patient uses alcohol, occasionally. Patient/guardian denies using street drugs. - Ebola Screening: : No symptoms or risks identified at this time. Screenin:40 Abuse screen: Denies threats or abuse. Denies injuries from another. Nutritional rr5 screening: No deficits noted. Tuberculosis screening: No symptoms or risk factors identified. Fall Risk IV access (20 points). Total Santana Fall Scale indicates No Risk (0-24 pts). Assessment: 06:37 General: Appears in no apparent distress. comfortable, Behavior is calm, cooperative, rr5 appropriate for age. Pain: Complains of pain in right arm and left arm Pain does not radiate. Pain currently is 7 out of 10 on a pain scale. Quality of pain is described as aching, Is intermittent, Aggravated by increased activity. Neuro: Level of Consciousness is awake, alert, obeys commands, Oriented to person, place, time, situation, Appropriate for age. Cardiovascular: Reports Capillary refill < 3 seconds Patient's skin is warm and dry. Respiratory: Airway is patent. GI: No signs and/or symptoms were reported involving the gastrointestinal system. Abdomen is round. : No signs and/or symptoms were reported regarding the genitourinary system. EENT: No signs and/or symptoms were reported regarding the EENT system. Derm: Skin is intact, Skin is dry, Skin is pink, warm \\T\\ dry. Musculoskeletal: Range of motion: limited in left shoulder, left elbow, left wrist, right shoulder, right elbow and right wrist Swelling present in right and left wrist. 07:05 Reassessment: US at bedside. Awaiting Fentanyl from pharmacy. . aa5 07:20 General: Appears comfortable, Behavior is calm, cooperative. Pain: Complains of pain in aa5 dorsal aspect of left forearm and left wrist Pain does not radiate. Pain currently is 8 out of 10 on a pain scale. Quality of pain is described as aching, Pain began approximately 10 days ago. Is intermittent, Aggravated by increased activity. Neuro: Level of Consciousness is awake, alert, obeys commands, Oriented to person, place, time, situation. Cardiovascular: Heart tones S1 S2 present Rhythm is regular. Respiratory: Airway is patent Respiratory effort is even, unlabored, Respiratory pattern is regular, symmetrical, Breath sounds are clear bilaterally. GI: No signs and/or symptoms were reported involving the gastrointestinal system. : No signs and/or symptoms were reported regarding the genitourinary system. EENT: No signs and/or symptoms were reported regarding the EENT system. Derm: Skin is pink, warm \\T\\ dry. Bruising that is yellow, on dorsal aspect of left forearm and left wrist Pt states "They did a heart ablation about 10 days ago and they tried to do an arterial line but they couldn't get it so that is where it hurts on my left arm". Musculoskeletal: Range of motion: intact in all extremities, Swelling absent. 08:00 Reassessment: Patient and/or family updated on plan of care and expected duration. Pain aa5 level reassessed. Patient is alert, oriented x 3, equal unlabored respirations, skin warm/dry/pink. Patient states feeling better. Pain: Pain currently is 6 out of 10 on a pain scale. GI: Reports nausea. 08:25 Reassessment: Patient is alert, oriented x 3, equal unlabored respirations, skin aa5 warm/dry/pink. Vital Signs: 06:39 BP 181 / 79; Pulse 70; Resp 17; Temp 97.9(O); Pulse Ox 99% on R/A; Weight 68.04 kg (R); bb Height 5 ft. 4 in. (162.56 cm) (R); Pain 9/10; 07:20 BP 166 / 75; Pulse 62; Resp 16 S; Temp 98.4(O); Pulse Ox 98% on R/A; Pain 8/10; aa5 08:00 BP 170 / 75; Pulse 60; Resp 16 S; Temp 98.2(O); Pulse Ox 96% on R/A; Pain 6/10; aa5 06:39 Body Mass Index 25.75 (68.04 kg, 162.56 cm) bb ED Course: 06:20 Patient arrived in ED. es 06:20 Zay Florez MD is Private Physician. es 06:21 [facility]. jr8 06:21 Manav Doan MD is Attending Physician. jr8 06:36 Fredy Gerardo, SHANDRA is Primary Nurse. rr5 06:37 Triage completed. bb 06:39 Arm band placed on Patient placed in an exam room, on a stretcher, on athletic monitor, bb on pulse oximetry. Family accompanied patient. 06:40 Patient has correct armband on for positive identification. Bed in low position. Call rr5 light in reach. Pulse ox on. NIBP on. Lights dimmed. 06:51 X-ray completed. Portable x-ray completed in exam room. Patient tolerated procedure sg4 well. 06:52 XRAY Chest (1 view) In Process Unspecified. EDMS 06:52 Inserted saline lock: 20 gauge in right antecubital area, using aseptic technique. rr5 ,using aseptic technique. by brad DEVI Blood collected. 07:04 Report given to betzy DEVI and anh DEVI. rr5 07:04 Report received from SHANDRA Smith. aa5 07:14 UPPER EXTREMITY VENOUS UNILATE In Process Unspecified. EDMS 07:35 Jorge Ontiveros MD is Referral Physician. jr8 08:25 No provider procedures requiring assistance completed. IV discontinued, intact, aa5 bleeding controlled, No redness/swelling at site. Pressure dressing applied. Administered Medications: 06:53 Drug: Zofran 4 mg Route: IVP; Site: right antecubital; rr5 07:20 Follow up: Response: No adverse reaction aa5 07:20 Drug: fentaNYL (PF) 50 mcg Route: IVP; Site: right antecubital; aa5 08:00 Follow up: Response: No adverse reaction aa5 08:08 Drug: Potassium Chloride 20 mEq Route: PO; aa5 08:18 Follow up: Response: Medication administered at discharge. aa5 08:18 Drug: Zofran 4 mg Route: IVP; Site: right antecubital; aa5 08:25 Follow up: Response: No adverse reaction aa5 Outcome: 07:35 Discharge ordered by . jr8 08:25 Discharged to home ambulatory, with significant other. aa5 08:25 Condition: improved 08:25 Discharge instructions given to patient, Instructed on discharge instructions, follow up and referral plans. medication usage, Demonstrated understanding of instructions, follow-up care, medications, Prescriptions given X 1. 08:30 Patient left the ED. aa5 Signatures: Dispatcher [employer] EDRI Katherine Fleming Brenda RN RN bb Anh Strickland RN RN aa5 Kal Guzman PA PA jr8 Magi Corbin Raymond, RN RN rr5 Corrections: (The following items were deleted from the chart) 06:42 06:39 BP 181 / 79; Pulse 70bpm; Resp 17bpm; Pulse Ox 99% RA; Pain 7/10; rr5 bb 06:45 06:37 Musculoskeletal: Range of motion: limited in right shoulder rr5 rr5 06:45 06:37 Pain: Complains of pain in right arm Pain does not radiate. Pain currently is 7 rr5 out of 10 on a pain scale. Quality of pain is described as aching, Is intermittent, Aggravated by increased activity, rr5 08:42 08:41 Patient left the ED. aa5 aa5
--- NOTE | 2018-09-25 07:36 | EDPHYS ---
Physician Documentation [facility] Name: Bernabe Ty Age: 73 yrs Sex: Female : 1945 Arrival Date: 09/25/2018 Time: 06:20 Bed 14 Private MD: Zay Florez V ED Physician Manav Doan HPI: 09/25 06:36 This 73 yrs old Female presents to ER via Unassigned with complaints of Arm jr8 Pain. 06:36 Associated signs and symptoms: The patient has no apparent associated signs or jr8 symptoms. Severity of symptoms: At their worst the symptoms were moderate, in the emergency department the symptoms are unchanged. The patient has not experienced similar symptoms in the past. Patient had recent ablation surgery for atrial fibrillation. Stated that after the procedure was having some chest pain. 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 Stated that the pain would radiate down to the left elbow. Has resolved since initial episode but now having burning and aching in the left lower arm. Stated that they originally tried to access the left radial artery but was unsuccessful . Historical: - Allergies: 06:41 Codeine; bb 06:41 Hydrocodone-Acetaminophen; bb 06:41 Sulfa (Sulfonamide Antibiotics); bb - Home Meds: 06:41 Xarelto 20 mg Oral tab 1 tab once daily [Active]; losartan-hydrochlorothiazide 100-25 bb mg oral tab 1 tab once daily [Active]; Amiodarone Oral [Active]; - PMHx: 06:41 Atrial Fib; Hypertension; bb - PSHx: 06:41 heart ablation; pacemaker; Hysterectomy; ; back sx; sinus sx; bb - Immunization history:: Adult Immunizations up to date. - Social history:: Smoking status: Patient/guardian denies using tobacco, Patient uses alcohol, occasionally. Patient/guardian denies using street drugs. - Ebola Screening: : No symptoms or risks identified at this time. ROS: 06:36 Eyes: Negative for injury, pain, redness, and discharge, ENT: Negative for injury, jr8 pain, and discharge, Neck: Negative for injury, pain, and swelling, Cardiovascular: Negative for chest pain, palpitations, and edema, Respiratory: Negative for shortness of breath, cough, wheezing, and pleuritic chest pain, Abdomen/GI: Negative for abdominal pain, nausea, vomiting, diarrhea, and constipation, Back: Negative for injury and pain, Skin: Negative for injury, rash, and discoloration, Neuro: Negative for headache, weakness, numbness, tingling, and seizure. 06:36 MS/extremity: Positive for ecchymosis, pain, of the left arm. Exam: 06:36 Eyes: Pupils equal round and reactive to light, extra-ocular motions intact. Lids and jr8 lashes normal. Conjunctiva and sclera are non-icteric and not injected. Cornea within normal limits. Periorbital areas with no swelling, redness, or edema. ENT: Nares patent. No nasal discharge, no septal abnormalities noted. Tympanic membranes are normal and external auditory canals are clear. Oropharynx with no redness, swelling, or masses, exudates, or evidence of obstruction, uvula midline. Mucous membranes moist. Neck: Trachea midline, no thyromegaly or masses palpated, and no cervical lymphadenopathy. Supple, full range of motion without nuchal rigidity, or vertebral point tenderness. No Meningismus. Chest/axilla: Normal chest wall appearance and motion. Nontender with no deformity. No lesions are appreciated. Cardiovascular: Regular rate and rhythm with a normal S1 and S2. No gallops, murmurs, or rubs. Normal PMI, no JVD. No pulse deficits. Respiratory: Lungs have equal breath sounds bilaterally, clear to auscultation and percussion. No rales, rhonchi or wheezes noted. No increased work of breathing, no retractions or nasal flaring. Abdomen/GI: Soft, non-tender, with normal bowel sounds. No distension or tympany. No guarding or rebound. No evidence of tenderness throughout. Back: No spinal tenderness. No costovertebral tenderness. Full range of motion. Skin: Warm, dry with normal turgor. Normal color with no rashes, no lesions, and no evidence of cellulitis. Neuro: Awake and alert, GCS 15, oriented to person, place, time, and situation. Cranial nerves II-XII grossly intact. Motor strength 5/5 in all extremities. Sensory grossly intact. Cerebellar exam normal. Normal gait. 06:36 Musculoskeletal/extremity: ROM: no acute changes, intact in all extremities, No pain with ROM, Pulses: noted to be 3+ in the right radial artery, right brachial artery, left radial artery and left brachial artery, Perfusion: the patient is normally perfused throughout, Perfusion: the extremity is normally perfused throughout, Sensation intact. No tenderness with palpation of the left arm or shoulder. Ecchymosis from the left wrist to the mid left forearm on the ventral aspect . Vital Signs: 06:39 BP 181 / 79; Pulse 70; Resp 17; Temp 97.9(O); Pulse Ox 99% on R/A; Weight 68.04 kg (R); bb Height 5 ft. 4 in. (162.56 cm) (R); Pain 9/10; 07:20 BP 166 / 75; Pulse 62; Resp 16 S; Temp 98.4(O); Pulse Ox 98% on R/A; Pain 8/10; aa5 08:00 BP 170 / 75; Pulse 60; Resp 16 S; Temp 98.2(O); Pulse Ox 96% on R/A; Pain 6/10; aa5 06:39 Body Mass Index 25.75 (68.04 kg, 162.56 cm) bb MDM: 06:21 Patient medically screened. jr8 07:34 Data reviewed: vital signs, nurses notes, lab test result(s), radiologic studies, plain jr8 films, ultrasound. Data interpreted: Pulse oximetry: on room air is 99 %. Interpretation: normal. Counseling: I had a detailed discussion with the patient and/or guardian regarding: the historical points, exam findings, and any diagnostic results supporting the discharge/admit diagnosis, lab results, radiology results, the need for outpatient follow up, a elevator inspector, to return to the emergency department if symptoms worsen or persist or if there are any questions or concerns that arise at home. Response to treatment: the patient's symptoms have markedly improved after treatment. 09/25 06:35 Order name: Basic Metabolic Panel; Complete Time: 09/25 06:35 Order name: CBC with Diff; Complete Time: 09/25 06:35 Order name: LFT's; Complete Time: :8 09/25 06:35 Order name: Magnesium; Complete Time: 09/25 06:35 Order name: PT-INR; Complete Time: 09/25 06:35 Order name: Troponin (emerg Dept Use Only); Complete Time: 07:31 09/25 06:35 Order name: XRAY Chest (1 view) [facility] 09/25 06:35 Order name: EKG; Complete Time: 06:35 8 09/25 07:13 Order name: UPPER EXTREMITY VENOUS UNILATE [facility] 09/25 06:35 Order name: Cardiac monitoring; Complete Time: 06:36 09/25 06:35 Order name: EKG - Nurse/Tech; Complete Time: 06:45 09/25 06:35 Order name: IV Saline Lock; Complete Time: 06:57 09/25 06:35 Order name: Labs collected and sent; Complete Time: 06:57 09/25 06:35 Order name: O2 Per Protocol; Complete Time: 06:36 09/25 06:35 Order name: O2 Sat Monitoring; Complete Time: 06:36 Administered Medications: 06:53 Drug: Zofran 4 mg Route: IVP; Site: right antecubital; rr5 07:20 Follow up: Response: No adverse reaction aa5 07:20 Drug: fentaNYL (PF) 50 mcg Route: IVP; Site: right antecubital; aa5 08:00 Follow up: Response: No adverse reaction aa5 08:08 Drug: Potassium Chloride 20 mEq Route: PO; aa5 08:18 Follow up: Response: Medication administered at discharge. aa5 08:18 Drug: Zofran 4 mg Route: IVP; Site: right antecubital; aa5 08:25 Follow up: Response: No adverse reaction aa5 Disposition: 09/26 04:04 Co-signature as Attending Physician, Manav Doan MD I agree with the assessment and wa plan of care. Disposition: 09/25/18 07:35 Discharged to Home. Impression: Pain in left arm. - Condition is Stable. - Discharge Instructions: Coronary Angioplasty. - Prescriptions for Tramadol 50 mg Oral Tablet - take 2 tablet by ORAL route every 8 hours as needed; 20 tablet. - Medication Reconciliation Form, Thank You Letter, Antibiotic Education, Prescription Opioid Use form. - Follow up: Jorge Ontiveros MD; When: 2 - 3 days; Reason: Recheck today's complaints, Continuance of care, Re-evaluation by your physician. - Problem is new. - Symptoms have improved. Signatures: Dispatcher [employer] EDCA Katie Lara RN RN bb Macie Strickland RN RN aa5 Kal Guzman, ANGEL LUIS HEIN jr8 Manav Doan MD MD wa Roque, Raymond, RN RN rr5 Corrections: (The following items were deleted from the chart) 09/25 07:13 06:36 Extremity Venous Uni [id number] ordered. [facility] EDCA 08:41 07:35 09/25/2018 07:35 Discharged to Home. Impression: Pain in left arm. Condition is aa5 Stable. Forms are Medication Reconciliation Form, Thank You Letter, Antibiotic Education, Prescription Opioid Use. Follow up: Jorge Ontiveros; When: 2 - 3 days; Reason: Recheck today's complaints, Continuance of care, Re-evaluation by your physician. Problem is new. Symptoms have improved. jr8
[2018-09-25] MEDS ORDERED: POTASSIUM CL SA 10 MEQ TAB PO ONE (08:07)
--- NOTE | 2018-09-25 08:57 | RAD REPORT ---
EXAM DESCRIPTION: Sara Single View09/25/2018 6:52 am CLINICAL HISTORY: Chest pain COMPARISON: February 2018 FINDINGS: The lungs appear clear of acute infiltrate. The heart is mildly enlarged. Pacemaker leads are in place. IMPRESSION: No acute abnormalities displayed
--- NOTE | 2018-09-25 12:13 | RAD REPORT ---
EXAM DESCRIPTION: US - UPPER EXTREMITY VENOUS UNILATE - 09/25/2018 7:14 am CLINICAL HISTORY: Left arm pain. COMPARISON: None. FINDINGS: Left internal jugular vein, subclavian, axillary, brachial, basilic, cephalic, radial and ulnar veins are compressible. Doppler demonstrates good flow. IMPRESSION: No evidence of left upper extremity venous thrombosis.
--- NOTE | 2018-09-25 18:48 | EKG ---
Test Date: 2018-09-25 Test Time: 06:42:36 Lead Slot Technician: SABIHA MEASUREMENT RESULTS: Intervals: Rate: 63 ME: 118 QRSD: 96 QT: 506 QTc: 517 [place]: P: -24 ME: 118 QRS: -53 T: 6 INTERPRETIVE STATEMENTS: Electronic atrial pacemaker Left anterior fascicular block T wave abnormality, consider anterior ischemia Prolonged QT Abnormal ECG Compared to ECG 06/20/2018 11:46:01 Left anterior fascicular block now present T-wave abnormality now present Possible ischemia now present Prolonged QT interval now present Sinus bradycardia no longer present Electronically Signed On 09-25-18 18:45:00 FRONT END SOFTWARE ENGINEER by Jorge Ontiveros
== END 2018-09-25 08:41 | disposition home or self-care (01) ==
LOC: ER 06:17
DX: M79.602 Pain in left arm (principal); I10 Essential (primary) hypertension; I48.91 Unspecified atrial fibrillation; Z95.0 Presence of cardiac pacemaker; Z79.01 Long term (current) use of anticoagulants; Z88.2 Allergy status to sulfonamides; Z88.5 Allergy status to narcotic agent; Z88.6 Allergy status to analgesic agent; Z98.890 Other specified postprocedural states
CPT/HCPCS: 36415; 71045; 80048; 80076; 83735; 84484; 85025; 85610; 93005; 93971; 96374; 96375; 99284; J2405 ×2; J3010

== ENCOUNTER 2019-04-26 07:40 | Day surgery (SDC) | payer OTHER ==
--- OUTSIDE RECORDS SUMMARY | 2019-04-26 07:44 | XMS REPORT | Clinical Summary ---
:1945 Author Organization [facility] Address [address] [place] [address] Care Team Providers Name Role Phone Asked, No Pcp Primary Care Provider Unavailable Allergies Active Allergy Reactions Severity Noted Date Comments Sulfamethoxazole-Trimethoprim Rash Low 09/15/2018 Codeine GI Intolerance 06/20/2018 Hydrocodone GI Intolerance 06/20/2018 Sulfa (Sulfonamide Antibiotics) Rash, GI Intolerance Low 06/20/2018 Medications Medication Sig Dispensed Refills Start Date End Date Status losartan-hydrochlor [...] twice a day until wound check visit. sotalol (BETAPACE) Take 80 mg by 3 [...] tablet by mouth nightly. Default OP ins sucralfate Take 1 tablet 120 tablet 0 09/16/2018 10/16/2018 (CARAFATE) 1 gram (1 g total) tablet by mouth 4 (four) times a day before meals and nightly for 30 days. colchicine 0.6 mg Take 0.5 30 tablet 0 09/16/2018 10/16/2018 tablet tablets (0.3 mg total) by mouth 2 (two) times a day for 30 days. pantoprazole Take 1 tablet 60 tablet 0 09/16/2018 10/16/2018 (PROTONIX) 40 MG EC (40 mg total) tablet by mouth 2 (two) times a day for 30 days. Active Problems Problem Noted Date PAF (paroxysmal atrial fibrillation) 09/15/2018 Chronic atrial fibrillation 06/20/2018 Paroxysmal SVT (supraventricular tachycardia) 06/20/2018 Essential hypertension 06/20/2018 Encounters Date Type Specialty Care Team Description 09/15/2018 Anesthesia Event Procedural Kevan Mora Cardiology BLAYNE Zaragoza 09/15/2018 Surgery Procedural Aric Walters MD Ep complete ep study Cardiology w ablation pulmonary vein [35110 (CPT)] 09/15/2018 - Hospital Encounter Cardiology Aric Walters MD PAF (paroxysmal 09/16/2018 atrial fibrillation) (HCC) 06/22/2018 Surgery Procedural Kevin Bahena Insertion pacemaker Cardiology MD Brittanie pulse generator [50895 (CPT)] 06/20/2018 - Hospital Encounter Cardiology Valeria Santiago Paroxysmal SVT 06/24/2018 MD Gi (supraventricular tachycardia) (Primary Dx) 06/20/2018 Intake Access N/A after 04/25/2018 Family History Medical History Relation Name Comments Heart disease Brother Heart disease Sister Relation Name Status Comments Brother Father Mother Sister Social History Tobacco Use Types Packs/Day Years Used Date Never Smoker Smokeless Tobacco: Never Used Sex Assigned at Date Recorded Not on file Job Start Date Occupation Industry Not on file Not on file Not on file Travel History Travel Start Travel End No recent travel history available. Last Filed Vital Signs Vital Sign Reading [...] 7:16 AM CDT Body Mass Index 26.49 09/15/2018 7:16 AM CDT Plan of Treatment Health Maintenance Due Date Last Done Comments BREAST CANCER SCREENING 1997 COLON CANCER SCREENING 1997 SHINGLES VACCINES (#1) 1997 65+ PNEUMOCOCCAL VACCINE (1 of 2 - PCV13) 02/18/2012 INFLUENZA VACCINE 06/17/2019 Implants Implanted Type Area Corporate Sales Trainer Device Shelf Model / Identifier Expiration Serial / Date Lot Rosanna Xt Dr Mri - [id number] Cardiac N/A: [employer] [facility] [id number] / Implanted: Qty: 1 on 06/22/2018 by Kevin Bahena Jr., MD Pacemaker N/A [employer] / Generators Lead, Bipolar Active Fixation Atrial Steroid Eluting 45 Cm Capsure Fix Novus System - [id number] Cardiac Pacing N/A: [employer] [facility] 04/06/2020 [id number] 45 / Implanted: 06/22/2018 (Quantity not on file) Leads or N/[employer] [id number] / Electrodes or [id number] Accessories Lead, Pacemaker Bipolar Fix Forming Atrial And Ventricular Steroid Eluting 52 Centimeter Capsure Fix Novus - [id number] Cardiac Pacing N/A: [employer] [facility] 04/01/2020 [id number] 52 / Implanted: 06/22/2018 (Quantity not on file) Leads or N/[employer] [id number] / Electrodes or [id number] Accessories Procedures Procedure Name Priority Date/Time Associated [...] CDT procedure are in the results section. MD AN ELECTIVE Routine 09/15/2018 10:25 ENDOTRACHEAL AIRWAY AM CDT Procedure Note - Milena Gresham CRNA - 09/15/2018 10:25 AM CDT Airway Date/Time: 09/15/2018 10:26 AM Performed by: MILENA GRESHAM Authorized by: PERCY GEE Location: computer laboratory technician Urgency: Elective Difficult Airway: No Anesthesiologist: PERCY GEE Resident/BUSINESS RISK CONSULTANT/AA: MILENA GRESHAM Performed by: resident/BUSINESS RISK CONSULTANT/AA Preoxygenated with 100% O2: Yes C-spine Precautions [...] SPECTRAL COLOR DOPPLER procedure are in the (81979) results section. XR CHEST 1 VW PORTABLE [...] GLUCOSE Routine 06/20/2018 12:49 PM CDT after 04/25/2018 Results XR Chest 1 Vw Portable (09/16/2018 10:06 AM CDT)Only the most recent of6 resultswithin the time period is included. Specimen Narrative Performed At EXAMINATION:XR CHEST 1 VW PORTABLE RADIANT CLINICAL HISTORY:Post ablation COMPARISON:To previous study from 06/23/2018 IMPRESSION: Transvenous pacemaker is present. The heart is normal in appearance and the lungs are hyperinflated. Minimal atelectatic changes in the left lung base present. Small granuloma in the left lung base is present. Lungs otherwise are clear. [facility]-[id number] Procedure Note Hm Interface, Radiology Results Incoming [...] base is present. Lungs otherwise are clear. [facility]-[id number] Performing Organization Address City/State/Zipcode Phone Number [facility] [address] [place] [address] Estimated GFR (09/16/2018 4:30 AM CDT)Only the most recent of2 resultswithin the time period is included. Estimated GFR 61 mL/min/1.73 [facility] DEPARTMENT OF Comment: m2 PATHOLOGY AND CatergoryUnitsInterpretation GENOMIC MEDICINE G1 >=90 Normal or high G2 60-89Mildly decreased V8s00-98Xmyhur to moderately decreased Q9a78-38Oigzaxbath to severely decreased G4 15-29Severely decreased G5 <15Kidney failure The eGFR was calculated using the Chronic Kidney Disease Epidemiology Collaboration (CKD-EPI) equation. Interpretation is based on recommendations of the National Kidney Foundation-Kidney Disease Outcomes Quality Initiative (NKF-KDOQI) published in 2014. Specimen Plasma specimen Performing Organization Address City/State/Zipcode Phone Number [facility] DEPARTMENT OF PATHOLOGY AND [address] [place] [address] GENOMIC MEDICINE CBC with platelet and differential (09/16/2018 4:30 AM CDT)Only the most recent of6 resultswithin the time period is included. WBC 11.93 (H) 4.50 - 11.00 [facility] DEPARTMENT OF k/uL PATHOLOGY AND GENOMIC MEDICINE RBC 3.53 (L) 4.20 - 5.50 [facility] DEPARTMENT OF m/uL PATHOLOGY AND GENOMIC MEDICINE HGB 10.6 (L) 12.0 - 16.0 [facility] DEPARTMENT OF g/dL PATHOLOGY AND GENOMIC MEDICINE HCT 33.1 (L) 37.0 - 47.0 % [facility] DEPARTMENT OF PATHOLOGY AND GENOMIC MEDICINE MCV 93.8 82.0 - 100.0 [facility] DEPARTMENT OF fL PATHOLOGY AND GENOMIC MEDICINE MCH 30.0 27.0 - 34.0 [facility] DEPARTMENT OF PATHOLOGY AND GENOMIC MEDICINE MCHC 32.0 31.0 - 37.0 [facility] DEPARTMENT OF g/dL PATHOLOGY AND GENOMIC MEDICINE RDW - SD 49.5 37.0 - 55.0 [facility] DEPARTMENT OF fL PATHOLOGY AND GENOMIC MEDICINE MPV 10.1 8.8 - 13.2 [facility] DEPARTMENT OF PATHOLOGY AND GENOMIC MEDICINE Platelet count 167 150 - 400 [facility] DEPARTMENT OF k/uL PATHOLOGY AND GENOMIC MEDICINE Nucleated RBC 0.00 /100 WBC [facility] DEPARTMENT OF PATHOLOGY AND GENOMIC MEDICINE Neutrophils 74.4 (H) 39.0 - 69.0 % [facility] DEPARTMENT OF PATHOLOGY AND GENOMIC MEDICINE Lymphocytes 17.8 (L) 25.0 - 45.0 % [facility] DEPARTMENT OF PATHOLOGY AND GENOMIC MEDICINE Monocytes 7.0 0.0 - 10.0 % [facility] DEPARTMENT OF PATHOLOGY AND GENOMIC MEDICINE Eosinophils 0.3 0.0 - 5.0 % [facility] DEPARTMENT OF PATHOLOGY AND GENOMIC MEDICINE Basophils 0.1 0.0 - 1.0 % [facility] DEPARTMENT OF PATHOLOGY AND GENOMIC MEDICINE Immature granulocytes 0.4Comment: 0.0 - 1.0 % [facility] DEPARTMENT OF "Immature PATHOLOGY AND granulocytes" GENOMIC MEDICINE (promyelocytes , myelocytes, metamyelocytes ) Specimen Blood Performing Organization Address City/State/Zipcode Phone Number [facility] DEPARTMENT OF PATHOLOGY AND [address] [place] [address] [facility] Basic metabolic panel (09/16/2018 4:30 AM CDT)Only the most recent of7 resultswithin the time period is included. Sodium 139 135 - 148 mEq/L [facility] DEPARTMENT OF PATHOLOGY AND GENOMIC MEDICINE Potassium 3.4 (L) 3.5 - 5.0 mEq/L [facility] DEPARTMENT OF PATHOLOGY AND GENOMIC MEDICINE Chloride 99 98 - 112 mEq/L [facility] DEPARTMENT OF PATHOLOGY AND GENOMIC MEDICINE CO2 22 (L) 24 - 31 mEq/L [facility] DEPARTMENT OF PATHOLOGY AND GENOMIC MEDICINE Anion gap 18@ANIO (H) 7 - 15 mEq/L [facility] DEPARTMENT OF PATHOLOGY AND GENOMIC MEDICINE BUN 15 8 - 23 mg/dL [facility] DEPARTMENT OF PATHOLOGY AND GENOMIC MEDICINE Creatinine 0.94 (H) 0.50 - 0.90 mg/dL [facility] DEPARTMENT OF PATHOLOGY AND GENOMIC MEDICINE Glucose 94 65 - 99 mg/dL [facility] DEPARTMENT OF PATHOLOGY AND GENOMIC MEDICINE Calcium 9.2 8.8 - 10.2 mg/dL [facility] DEPARTMENT OF PATHOLOGY AND GENOMIC MEDICINE Specimen Plasma specimen Performing Organization Address City/State/Zipcode Phone Number [facility] DEPARTMENT OF PATHOLOGY AND [address] [place], [place] [phone] [place] [address] Cv electrophysiology procedure (09/15/2018 1:04 PM CDT) Specimen Impressions Performed At -Successful CTI ablation with [...] Narrative Performed At DATE OF OPERATION: 09/15/2018 [facility] PROCESS COORDINATOR: Aric Walters MD PREOPERATIVE DIAGNOSES: -Paroxysmal atrial [...] for atrial flutter andfibrillation ablation, to avoid senior living use of amiodarone. PROCEDURE IN DETAIL: Consent [...] Patient presented to the EP lab in [facility]. Sheaths were placed using modified Seldinger technique. [...] 350 sec, transseptal puncture was performed with [place] long needle (requiring RF) using ICE guidance. [...] HV interval was measured at 51msec and NM=[id number]. Post-procedure ICE showed no pericardial effusion.At this time, GA was stopped and patient was extubated; No immediate complications. Protamine was given at the end of the procedure.Sheaths were pulled in the lab and patient was transferred to the PACU in a stable condition. Performing Organization Address City/State/Zipcode Phone Number [facility] [address] [place] [address] Activated clotting time (09/15/2018 1:03 PM CDT)Only the most recent of5 resultswithin the time period is included. Activated clotting 152 96 - 152 sec [facility] DEPARTMENT OF time Comment: PATHOLOGY AND Meter ID: [id number] GENOMIC MEDICINE Senior Recruitment Consultant: Marga Chang Specimen Performing Organization Address City/[facility]/Zipcode Phone Number [facility] DEPARTMENT OF PATHOLOGY AND [address] [place] [address] GENOMIC MEDICINE Prothrombin time with INR (09/15/2018 7:55 AM CDT)Only the most recent of3 resultswithin the time period is included. Pathologist [facility] Prothrombin time 14.4 12.0 - 15.0 [facility] DEPARTMENT OF sec PATHOLOGY AND GENOMIC MEDICINE INR 1.1 [facility] DEPARTMENT OF Comment: PATHOLOGY AND The International Normalized Ratio (INR) is a therapeutic GENOMIC MEDICINE monitoring tool for patients who are stable on oral anticoagulant therapy. An INR of 2.0-3.0 is suggested for deep vein thrombosis/pulmonary embolism. Specimen Blood Performing Organization Address City/[facility] Phone Number [facility] DEPARTMENT OF PATHOLOGY AND [address] [place] [address] GENOMIC MEDICINE Type and screen (09/15/2018 7:00 AM CDT)Only the most recent of2 resultswithin the time period is included. ABO grouping A [facility] DEPARTMENT OF PATHOLOGY AND GENOMIC MEDICINE Rh type POS [facility] DEPARTMENT OF PATHOLOGY AND GENOMIC MEDICINE Antibody screen (gel) NEG [facility] DEPARTMENT OF PATHOLOGY AND GENOMIC MEDICINE Specimen Blood Performing Organization Address [facility] Cent[facility]ode Phone Number [facility] DEPARTMENT OF PATHOLOGY AND [address] [place] [address] GENOMIC MEDICINE ECG 12 lead (09/15/2018 6:44 AM CDT)Only the most recent of4 resultswithin the time period is included. Ventricular rate 62 [facility] MUSE Atrial rate 62 [facility]USE MD interval 206 [facility] MUSE QRSD interval 100 [facility]USE QT interval 500 [facility] QTC interval 507 [facility] MUSE P axis 1 -21 [facility]USE QRS axis 1 -58 [facility] T wave axis 37 [facility] MUSE EKG impression Atrial-paced rhythm-Left anterior fascicular block-Prolonged QT -Abnormal ECG-In automated comparison with ECG of 23-JUN-2018 04:43,-Electronic atrial pacemaker has replaced Atrial fibrillation-Electroni [facility] MUSE mary Signed By Aakash Alonso MD ([id number]) on 09/15/2018 6:34:13 PM Specimen Performing Organization Address City/[facility] Phone Number [facility] MUSE [address] [place] [phone] POC glucose (06/24/2018 2:17 PM CDT)Only the most recent of25 resultswithin the time period is included. [facility] POC glucose 98 65 - 99 mg/dL [facility] DEPARTMENT OF Comment: PATHOLOGY AND [facility] Notified RN GENOMIC MEDICINE Meter ID: [id number] Senior Recruitment Consultant: Kishore Valdez Specimen Performing Organization Address [facility] Cent[facility]ode Phone Number [facility] DEPARTMENT PATHOLOGY AND [address] [place] [phone] [facility] Estimated GFR (06/24/2018 5:33 AM CDT)Only the most recent of5 resultswithin the time period is included. [facility] GFR Non Af Amer 62 mL/min/1.73 [facility] DEPARTMENT OF m2 PATHOLOGY AND GENOMIC MEDICINE GFR Af Amer 75 mL/min/1.73 [facility] DEPARTMENT OF Comment: m2 PATHOLOGY AND Chronic kidney disease: <60 mL/min/1.73m2 GENOMIC MEDICINE Kidney failure: <15 mL/min/1.73m2 The estimated [...] Americans. Specimen Plasma specimen Performing Organization Address [facility] Cent[facility]ode Phone Number [facility] DEPARTMENT OF PATHOLOGY AND [address] [place] [phone] [facility] CBC hemogram (06/24/2018 5:33 AM CDT) Pathologist [facility] WBC 9.03 4.50 - 11.00 k/uL [facility] DEPARTMENT OF PATHOLOGY AND GENOMIC MEDICINE RBC 4.07 (L) 4.20 - 5.50 m/uL [facility] DEPARTMENT OF PATHOLOGY AND GENOMIC MEDICINE HGB 12.2 12.0 - 16.0 g/dL [facility] DEPARTMENT OF PATHOLOGY AND GENOMIC MEDICINE HCT 37.3 37.0 - 47.0 % [facility] DEPARTMENT OF PATHOLOGY AND GENOMIC MEDICINE MCV 91.6 82.0 - 100.0 fL [facility] DEPARTMENT OF PATHOLOGY AND GENOMIC MEDICINE MCH 30.0 27.0 - 34.0 pg [facility] DEPARTMENT OF PATHOLOGY AND GENOMIC MEDICINE MCHC 32.7 31.0 - 37.0 g/dL [facility] DEPARTMENT OF PATHOLOGY AND GENOMIC MEDICINE RDW - SD 44.9 37.0 - 55.0 fL [facility] DEPARTMENT OF PATHOLOGY AND GENOMIC MEDICINE MPV 9.9 8.8 - 13.2 fL [facility] DEPARTMENT OF PATHOLOGY AND GENOMIC MEDICINE Platelet count 185 150 - 400 k/uL [facility] DEPARTMENT OF PATHOLOGY AND GENOMIC MEDICINE Nucleated RBC 0.00 /100 WBC [facility] DEPARTMENT OF PATHOLOGY AND GENOMIC MEDICINE Specimen Blood Performing Organization Address [facility] Phone Number [facility] DEPARTMENT OF PATHOLOGY AND [address] [place] [address] GENOMIC MEDICINE Phosphorus level (06/24/2018 5:33 AM CDT)Only the most recent of5 resultswithin the time period is included. Phosphorus 3.2 2.4 - 4.5 mg/dL [facility] DEPARTMENT OF PATHOLOGY AND GENOMIC MEDICINE Specimen Plasma specimen Performing Organization Address [facility] Phone Number [facility] DEPARTMENT OF PATHOLOGY AND [address] [place] [phone] GENOMIC MEDICINE Magnesium level (06/24/2018 5:33 AM CDT)Only the most recent of5 resultswithin the time period is included. Magnesium 2.6 (H) 1.6 - 2.4 mg/dL [facility] DEPARTMENT OF PATHOLOGY AND GENOMIC MEDICINE Specimen Plasma specimen Performing Organization Address [facility]ode Phone Number [facility] DEPARTMENT OF PATHOLOGY AND [address] [place] [address] GENOMIC MEDICINE Ionized calcium (06/24/2018 5:33 AM CDT)Only the most recent of5 resultswithin the time period is included. pH 7.50 [facility] DEPARTMENT OF PATHOLOGY AND GENOMIC MEDICINE Ionized calcium 1.13 1.11 - 1.32 mmol/L [facility] DEPARTMENT OF PATHOLOGY AND GENOMIC MEDICINE Specimen Plasma specimen Performing Organization Address [facility] Phone Number [facility] DEPARTMENT OF PATHOLOGY AND [address] [place] [address] GENOMIC MEDICINE ECG Pre/Post Op-Tomorrow (06/23/2018 4:43 AM CDT) Ventricular rate 84 [facility] MUSE Atrial rate 97 [facility] MUSE QRSD interval 108 [facility] MUSE QT interval 452 [facility] MUSE QTC interval 534 [facility] MUSE QRS axis 1 -51 [facility] MUSE T wave axis 57 [facility] MUSE EKG impression Atrial [facility] MUSE fibrillation-Left anterior fascicular block- - Specimen Performing Organization Address City/[facility]ode Phone Number [facility] MUSE [address] [place] [address] Partial thromboplastin time, activated (06/23/2018 1:20 AM CDT)Only the most recent of2 resultswithin the time period is included. Pathologist [facility] PTT 33.2 23.0 - 36.0 [facility] DEPARTMENT OF Comment: sec PATHOLOGY AND PTT therapeutic range for unfractionated heparin is [facility] 61.0-112.0 seconds which corresponds to Anti-Xa 0.3-0.7 U/ml. Specimen Blood Performing Organization Address City/[facility] Phone Number [facility] DEPARTMENT OF PATHOLOGY AND [address] [place] [phone] [facility] Cv electrophysiology procedure (06/22/2018 7:50 PM CDT) Specimen Narrative Performed At TITLE OF PROCEDURE: CUPID [...] block aberrancy and the Emergency Room in [facility] indicated she required Life Flight to [facility] where she has been in the ICU [...] right ventricular apical pacing lead is a Medtronic 5076, serial #[id number].Measured R-waves 7 millivolts, pacing threshold 0.4 volts, impedance 928 ohms. 2.The atrial lead is a 5076, serial #[id number], measured flutter waves or fib waves 1.1 millivolt, pacing threshold not obtained impedance 891 ohms. 3.The pacemaker is a Medtronic [place] XT DR MRI model [id number], serial #[id number]. 4.Estimated blood loss 10 mL or less. CONCLUSIONS: Successful dual-chamber pacemaker insertion. RECOMMENDATIONS: 1.Initiate IV amiodarone. 2.Continue oral amiodarone. 3.Resume oral anticoagulants in the morning. Performing Organization Address [facility] Phone Number [facility] [address] [place] [phone] Thyroid stimulating hormone (06/20/2018 3:36 PM CDT) TSH 0.99 0.27 - 4.20 uIU/mL [facility] DEPARTMENT OF PATHOLOGY AND GENOMIC MEDICINE Specimen Plasma specimen Performing Organization Address [facility] Phone Number [facility] DEPARTMENT OF PATHOLOGY AND [address] [place] [phone] [facility] Potassium level (06/20/2018 3:36 PM CDT) Potassium 3.6 3.5 - 5.0 mEq/L [facility] DEPARTMENT OF PATHOLOGY AND GENOMIC MEDICINE Specimen Plasma specimen Performing Organization Address [facility] Phone Number [facility] DEPARTMENT OF PATHOLOGY AND [address] [place] [phone] [facility] Hemoglobin A1c (06/20/2018 2:37 PM CDT) Hemoglobin A1C 5.3 4.0 - 5.6 % [facility] DEPARTMENT OF Comment: PATHOLOGY AND HbA1c cutoffs for diagnosing diabetes: GENOMIC MEDICINE 4.0% - 5.6%=normal 5.7% - 6.4%=increased risk for diabetes (prediabetes) >=6.5%=diabetes Goals for glycemic control (ADA 2016) < 7.0%Target for non adults with diabetes. More or less stringent targets may be appropriate for individual patients. <7.5% Target for Children and adolescents with type 1 diabetes. Specimen Performing Organization Address [facility]/Zipcode Phone Number [facility] DEPARTMENT OF PATHOLOGY AND [address] [place] [phone] GENOMIC MEDICINE Echocardiogram complete w contrast and 3D if needed (06/20/2018 2:20 PM CDT) Specimen Narrative Performed At [facility] Echocardiography Report [address], [place] [address] Pat.Name:BERNABE SAM.ID:[id number] .Date: 06/20/2018Refer.MD:VALERIA SANTIAGO MD Exam Time: 2:31:00 PMStudy Type:Routine Echo Height:63.78in Weight:149.6lb BSA: 1.73 m2 DOBAge:1945,73Y Sex: FEMALEBP:172/79 HR:50 bpmSonogrphr: BERNADETTE Marrero Pat. Stat.:Inpatient [facility] Study Status:Final Echo Event ID:[id number] Order ID:[id number] Reason for Study:Atrial fibrillation Procedures:2D Echo, Colorflow [...] RAPof 5 mmHg. MEASUREMENTS: 2D Parasternal Long Loman LVOT 1.9 cmLA Ds3.7 cm LVIDd3.7 cmIndex2.1 cm/m Ao An2.3 cm LVIDs2.6 cmAo Rtd 3.3 cm Index1.9 cm/m LV%fs 29.8 % LV Yrek810.3 g(87-129) IVSd 1.4 cmLVM Xttqq141.3 g/m2 LVPWd1.4 cmRWT0.7 LA Sng Plane LA Area 27.7 cm2(8.8-23.4) LA Vol85.2 ml Index49.3 ml/m LA LngAx 7.5 cm RA Sng Plane RA Area 22.2 cm2(8.3-19.5) RA Vol63.6 ml Index36.8 ml/m RA LngAx 6.5 cm DOPPLER LVOT Stroke Vol LVOT 1.9 cmLVOT CO4.3 l/min LVOT TVI29.5 cmLVOT CI2.5 l/m/m2 LVOT Tm348 [id number] bpm LVOT SV 83.7 ml MV For Flow/Valve Assess MV pkVel 144.2 cm/sMV Dec T 417 msec MV pkPG8.3 mmHgMV TVI49 cm MV Mean G2.4 mmHgMV Area P1/2t1.8 cm2(4-6) Signed 06/20/2018 05:44 PM Bethany Grier MD Procedure Note Interface, Radiology Results In - 06/20/2018 5:46 PM CDT Echocardiography Report [id number] [place] [address] Pat.Name: BERNABE SAM Pat.ID: [id number] .Date: 06/20/2018 Refer.MD: VALERIA SANTIAGO MD Exam Time: 2:31:00 PM Study Type:Routine Echo Height: 63.78in Weight: 149.6lb BSA: 1.73 m2 Age: 4 1945,73Y Sex: FEMALE BP: 172/79 HR: 50 bpm Sonogrphr: BERNADETTE Marrero Pat. Stat.:Inpatient Room: [facility] Study Status:Final Echo Event ID:[id number] Order ID: [id number] Reason for Study:Atrial fibrillation Procedures:2D Echo, Colorflow [...] of 5 mmHg. MEASUREMENTS: 2D Parasternal Long [place]oman LVOT 1.9 cm LA Ds 3.7 cm [...] MD Performing Organization Address City/State/Zipcode Phone Number [facility] [phone] [place] [address] Hepatic function panel (06/20/2018 12:58 PM CDT) Albumin 4.3 3.5 - 5.0 g/dL [facility] DEPARTMENT OF PATHOLOGY AND GENOMIC MEDICINE Total bilirubin 0.6 0.0 - 1.2 [facility] DEPARTMENT OF mg/dL PATHOLOGY AND GENOMIC MEDICINE Bilirubin direct <0.2 0.0 - 0.3 [facility] DEPARTMENT OF mg/dL PATHOLOGY AND GENOMIC MEDICINE Alkaline phosphatase 44 35 - 104 U/L [facility] DEPARTMENT OF PATHOLOGY AND GENOMIC MEDICINE Protein 7.6 6.3 - 8.3 g/dL [facility] DEPARTMENT OF Comment: PATHOLOGY AND [place] 4.6-7.0 g/dL GENOMIC MEDICINE 1 week 4.4-7.6 g/dL 7 months-1year5.1-7.3 g/dL 1-2 years5.6-7.5 g/dL >3 years6.0-8.0 g/dL 18-150 6.3-8.3 g/dL ALT 21 5 - 50 U/L [facility] DEPARTMENT OF PATHOLOGY AND GENOMIC MEDICINE AST SEE 10 - 35 U/L [facility] DEPARTMENT OF COMMENTComment PATHOLOGY AND : GENOMIC MEDICINE Footnote------ --- Specimen Plasma specimen Performing Organization Address City/State/Zipcode Phone Number [facility] DEPARTMENT OF PATHOLOGY AND [address] [place] [address] GENOMIC MEDICINE Lipid panel (06/20/2018 12:58 PM CDT) Cholesterol 286 (H) <200 mg/dL [facility] DEPARTMENT OF PATHOLOGY AND GENOMIC MEDICINE Triglycerides 123 <150 mg/dL [facility] DEPARTMENT OF PATHOLOGY AND GENOMIC MEDICINE HDL cholesterol 48 >40 mg/dL [facility] DEPARTMENT OF PATHOLOGY AND GENOMIC MEDICINE LDL cholesterol 218 (H)Comment: <100 mg/dL [facility] DEPARTMENT Result obtained by OF PATHOLOGY AND direct LDL GENOMIC MEDICINE measurement Lipid panel SeeBelow [facility] DEPARTMENT interpretation Comment: OF PATHOLOGY AND Total Cholesterol (mg/dL) GENOMIC MEDICINE <200 Desirable [phone]-iifh >=240High Triglycerides (mg/dL) <150 Normal [phone]-jjop 200-499High >=500Very high HDL Cholesterol (mg/dL) <40Low (male) <40Low (female) LDL Cholesterol (mg/dL) <100 Optimal 100-129Near or above optimal [phone]-rbok 160-189High >=190Very high Risk Catergories that modify [...] specimen Performing Organization Address City/State/Zipcode Phone Number [facility] DEPARTMENT OF PATHOLOGY AND [address] [place] [address] GENOMIC MEDICINE after 04/25/2018 Advance Directives Patient has advance care planning documents on file. For more information, please contact:Archie Russo[address] [place] [address]
[2019-04-26] MEDS ORDERED: NS 0.9% VIAL 10 ML ONE (08:06)
[2019-04-26] MEDS ORDERED: BALANCED SALT IRRIG PLAIN 500 ML BTL IRR ONE (08:06)
[2019-04-26] MEDS ORDERED: EPINEPHRINE/PF 1 MG/ML AMP ONE ×2 (08:06→09:38)
[2019-04-26] MEDS ORDERED: DUOVISC 1 KIT OPTH ONE (08:06)
[2019-04-26] MEDS ORDERED: BUPIVACAINE 0.25% PF 10 ML VIAL ONE (08:18)
[2019-04-26] MEDS ORDERED: CYCLOPENTOLATE 1% OPTH 2 ML ONE (08:18)
[2019-04-26] MEDS ORDERED: NA CHLORIDE 0.9% 500 ML ONE (08:19)
[2019-04-26] MEDS ORDERED: PHENYLEPHRINE 10% OPTH 5ML ONE (08:19)
[2019-04-26] MEDS ORDERED: CYCLOPENTOLATE 1% OPTH 2 ML OPTH ONE ×2 (08:20→08:25)
[2019-04-26] MEDS ORDERED: PHENYLEPHRINE 10% OPTH 5ML OPTH ONE (08:20)
[2019-04-26] MEDS: LIDOCAINE 2% MPF 5 ML VIAL ONE ×3 (08:49→09:45)
[2019-04-26] MEDS: TETRACAINE HCL 0.5% 4ML OPTH ONE ×2 (08:49→09:44)
[2019-04-26] MEDS ORDERED: PROPOFOL 200 MG/20 ML VIAL IV ONE (09:32)
[2019-04-26] MEDS ORDERED: LIDOCAINE 2% MPF 5 ML VIAL ONE (09:32)
[2019-04-26] MEDS: MOXIFLOXACIN HCL 10 DROPS/ML **OR USE OPTH ONE ×2 (09:59→10:17)
--- NOTE | 2019-04-26 10:22 | P.BOP ---
Preoperative diagnosis: Nuclear sclerotic and posterior subcapsular cataract OD Postoperative diagnosis: Same Primary procedure: Phacoemulsification with IOL OD Estimated blood loss: None Anesthesia: Local (Subtenon's infusion with anesthesia for cataract surgery) Complications: None Implants: ZCB00 +17.0 Transferred to: Other (Day surgery) Condition: Good
[2019-04-26] MEDS ORDERED: MIDAZOLAM HCL 2 MG/2 ML INJ ONE (10:26)
--- NOTE | 2019-04-26 12:06 | OP ---
Date of Procedure: 04/26/2019 Surgeon: Franci Wilkerson MD Anesthesiologist: Lisa Connor CRNA and Jono Quinteros MD. Preoperative Diagnosis: Nuclear sclerotic and posterior subcapsular cataract OD(right eye). Operation Performed: Phacoemulsification with intraocular lens implant, right eye. Anesthesia: Per cataract surgery. Complications: Description Of Procedure: In day surgery, the patient was prepped with Betadine and draped. A conju nctival incision was made in the inferior nasal quadrant with Hoa scissors. A sub-Tenon block c onsisting of a 1:1 mixture of 2% Xylocaine and 0.25% bupivacaine was placed through the conjunctival incision with a blunt cannula. A [place] balloon was placed over the eye and the patient was transferr ed to the operating room. In the operating room the patient was prepped and draped in the usual sterile fashion for ophthalmic surgery. A lid speculum was placed in the right. Two paracentesis sites were made superiorly and in feriorly in the limbal cornea. Viscoat was placed in the anterior chamber and a crescent blade was u sed to make a corneal groove and tunnel, and a keratome was used to enter the anterior chamber. Prov isc was placed in the anterior chamber and a 360 degree capsulotomy was performed with a cystitome. The lens was hydrodissected with BSS and rotated freely. The lens was removed with a stop and chop t echnique. 4.39 Phaco CDE was used to remove the lens. Residual cortex was removed with the irrigati on and aspiration. Provisc was placed in the capsular bag. A ZCB00 +17.0 Lens was placed in the cap sular bag without complications. Irrigation and aspiration was used to remove residual viscoelastic. The paracentesis sites were hydrated with BSS. The wound and paracentesis sites were inspected and found to be watertight. Vigamox 0.07 cc was placed intracamerally at the end of the procedure. The eye was irrigated with balanced salt solution. The eye was patched with a soft cotton patch and Todd metal shield. The patient was returned to day surgery in good condition. Comments: Discharge Instructions: Ms. Ty is discharged to home in good condition and is to follow up with Dr. Wilkerson in the morning. NATHALIE/KHADIJAH Voice ID: [id number] Report ID: [id number]
== END 2019-04-26 10:51 | disposition home or self-care (01) ==
LOC: OR 07:40
PROVIDERS: ATTEND Ophthalmology Retina Specialist
PROC: 08RJ3JZ Replacement of Right Lens with Synthetic Substitute, Percutaneous Approach (ICD-10-PCS; principal; 2019-04-26 09:30)
DX: H25.11 Age-related nuclear cataract, right eye (principal); H25.041 Posterior subcapsular polar age-related cataract, right eye; I10 Essential (primary) hypertension; I48.91 Unspecified atrial fibrillation; Z79.01 Long term (current) use of anticoagulants; Z79.899 Other long term (current) drug therapy; Z95.0 Presence of cardiac pacemaker
CPT/HCPCS: 66984; J2704; J0171; J2250

== ENCOUNTER 2019-05-23 22:35 | Emergency (ER) | payer OTHER ==
--- OUTSIDE RECORDS SUMMARY | 2019-05-23 22:39 | XMS REPORT | Clinical Summary ---
:1945 Author Organization [facility] Address [address] [place] [address] Care Team Providers Name Role Phone Asked, [...] ep study Cardiology w ablation pulmonary vein [64765 (CPT)] 09/15/2018 - Hospital Encounter Cardiology Aric Walters MD PAF (paroxysmal 09/16/2018 atrial fibrillation) (HCC) 06/22/2018 Surgery Procedural Kevin Bahena Insertion pacemaker Cardiology MD Brittanie pulse generator [77365 (CPT)] 06/20/2018 - Hospital Encounter Cardiology Valeria Santiago Paroxysmal SVT 06/24/2018 MD Gi (supraventricular tachycardia) (Primary Dx) 06/20/2018 Intake Access N/A after 05/22/2018 Family History Medical History Relation Name Comments [...] Last Done Comments BREAST CANCER SCREENING 1997 COLONOSCOPY SCREENING 1997 SHINGLES VACCINES (#1) 1997 65+ PNEUMOCOCCAL VACCINE (1 of 2 - PCV13) 02/18/2012 INFLUENZA VACCINE 06/17/2019 Implants Implanted Type Area Administrative Support Clerk Device Shelf Model / Identifier Expiration Serial / Date Lot Skyline View Xt Dr Mri - [id number] Cardiac N/A: [employer] [facility] [id number] / Implanted: Qty: 1 on 06/22/2018 by Kevin Bahena Jr., MD Pacemaker N/A [employer] / Generators Lead, Bipolar Active Fixation Atrial Steroid Eluting 45 Cm Capsure Fix Novus System - [id number] Cardiac Pacing N/A: [employer] [facility] 04/06/2020 [id number] 45 / Implanted: 06/22/2018 (Quantity not on file) Leads or N/[employer] [id number] / Electrodes or [id number] Accessories Lead, Pacemaker Bipolar Fix Forming Atrial And Ventricular Steroid Eluting 52 Centimeter Capsure Fix Novus - [id number] Cardiac Pacing N/A: [employer] [facility] 04/01/2020 5076 52 / Implanted: 06/22/2018 (Quantity not on file) Leads or N/[employer] [id number] / Electrodes or [id number] Accessories Procedures Procedure Name Priority Date/Time Associated [...] CDT procedure are in the results section. 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 XR CHEST 1 VW PORTABLE [...] GLUCOSE Routine 06/20/2018 12:49 PM CDT after 05/22/2018 Results XR Chest 1 Vw Portable (09/16/2018 [...] base is present. Lungs otherwise are clear. [facility]-[id number] Procedure Note Hm Interface, Radiology Results Incoming [...] base is present. Lungs otherwise are clear. [facility]-[id number] Performing Organization Address City/State/Zipcode Phone Number [facility] [address] [place] [address] Estimated GFR (09/16/2018 4:30 AM CDT)Only the most recent of2 resultswithin the time period is included. Estimated GFR 61 mL/min/1.73 [facility] DEPARTMENT OF Comment: m2 PATHOLOGY AND CatergoryUnitsInterpretation GENOMIC MEDICINE G1 >=90 Normal or high G2 60-89Mildly decreased X7o89-11Yhjylt to moderately decreased E7v32-96Qvhdalsint to severely decreased G4 15-29Severely decreased G5 <15Kidney failure The eGFR was calculated using the Chronic Kidney Disease Epidemiology Collaboration (CKD-EPI) equation. Interpretation is based on recommendations of the National Kidney Foundation-Kidney Disease Outcomes Quality Initiative (NKF-KDOQI) published in 2014. Specimen Plasma specimen Performing Organization Address City/State/Zipcode Phone Number [facility] DEPARTMENT OF PATHOLOGY AND [address] [place] [address] GENOMIC MEDICINE CBC with platelet and differential (09/16/2018 4:30 AM CDT)Only the most recent of6 resultswithin the time period is included. WBC 11.93 (H) 4.50 - 11.00 [facility] DEPARTMENT OF k/uL PATHOLOGY AND GENOMIC MEDICINE RBC 3.53 (L) 4.20 - 5.50 [facility] DEPARTMENT OF m/uL PATHOLOGY AND GENOMIC MEDICINE HGB 10.6 (L) 12.0 - 16.0 [facility] DEPARTMENT OF g/dL PATHOLOGY AND GENOMIC MEDICINE HCT 33.1 (L) 37.0 - 47.0 % [facility] DEPARTMENT OF PATHOLOGY AND GENOMIC MEDICINE MCV 93.8 82.0 - 100.0 [facility] DEPARTMENT OF fL PATHOLOGY AND GENOMIC MEDICINE MCH 30.0 27.0 - 34.0 [facility] DEPARTMENT OF PATHOLOGY AND GENOMIC MEDICINE MCHC 32.0 31.0 - 37.0 [facility] DEPARTMENT OF g/dL PATHOLOGY AND GENOMIC MEDICINE RDW - SD 49.5 37.0 - 55.0 [facility] DEPARTMENT OF [place] PATHOLOGY AND GENOMIC MEDICINE MPV 10.1 8.8 - 13.2 [facility] DEPARTMENT OF PATHOLOGY AND GENOMIC MEDICINE Platelet count 167 150 - 400 [facility] DEPARTMENT OF k/uL PATHOLOGY AND GENOMIC MEDICINE Nucleated RBC 0.00 /100 WBC [facility] DEPARTMENT OF PATHOLOGY AND GENOMIC MEDICINE Neutrophils 74.4 (H) 39.0 - 69.0 % [facility] DEPARTMENT OF PATHOLOGY AND GENOMIC MEDICINE Lymphocytes 17.8 (L) 25.0 - 45.0 % [facility] DEPARTMENT OF PATHOLOGY AND GENOMIC MEDICINE Monocytes 7.0 0.0 - 10.0 % [facility] DEPARTMENT OF PATHOLOGY AND GENOMIC MEDICINE Eosinophils 0.3 0.0 - 5.0 % [facility] DEPARTMENT OF PATHOLOGY AND GENOMIC MEDICINE Basophils 0.1 0.0 - 1.0 % [facility] DEPARTMENT OF PATHOLOGY AND GENOMIC MEDICINE Immature granulocytes 0.4Comment: 0.0 - 1.0 % [facility] DEPARTMENT OF "Immature PATHOLOGY AND granulocytes" GENOMIC MEDICINE (promyelocytes , myelocytes, metamyelocytes ) Specimen Blood Performing Organization Address City/State/Zipcode Phone Number [facility] DEPARTMENT OF PATHOLOGY AND [address] [place] [address] [employer] MEDICINE Basic metabolic panel (09/16/2018 4:30 AM CDT)Only the most recent of7 resultswithin the time period is included. Sodium 139 135 - 148 mEq/L [facility] DEPARTMENT OF PATHOLOGY AND GENOMIC MEDICINE Potassium 3.4 (L) 3.5 - 5.0 mEq/L [facility] DEPARTMENT OF PATHOLOGY AND GENOMIC MEDICINE Chloride 99 98 - 112 mEq/L [facility] DEPARTMENT OF PATHOLOGY AND GENOMIC MEDICINE CO2 22 (L) 24 - 31 mEq/L [facility] DEPARTMENT OF PATHOLOGY AND GENOMIC MEDICINE Anion gap 18@ANIO (H) 7 - 15 mEq/L [facility] DEPARTMENT OF PATHOLOGY AND GENOMIC MEDICINE BUN 15 8 - 23 mg/dL [facility] DEPARTMENT OF PATHOLOGY AND GENOMIC MEDICINE Creatinine 0.94 (H) 0.50 - 0.90 mg/dL [facility] DEPARTMENT OF PATHOLOGY AND GENOMIC MEDICINE Glucose 94 65 - 99 mg/dL [facility] DEPARTMENT OF PATHOLOGY AND GENOMIC MEDICINE Calcium 9.2 8.8 - 10.2 mg/dL [facility] DEPARTMENT OF PATHOLOGY AND GENOMIC MEDICINE Specimen Plasma specimen Performing Organization Address City/State/Zipcode Phone Number [facility] DEPARTMENT OF PATHOLOGY AND [address] Cv electrophysiology procedure (09/15/2018 1:04 PM CDT) [...] Narrative Performed At DATE OF OPERATION: 09/15/2018 [employer] TRANSPORTATION MODELER: Aric Walters MD PREOPERATIVE DIAGNOSES: -Paroxysmal atrial [...] for atrial flutter andfibrillation ablation, to avoid buttermaker helper use of amiodarone. PROCEDURE IN DETAIL: Consent [...] Patient presented to the EP lab in [facility]. Sheaths were placed using modified Seldinger technique. [...] 350 sec, transseptal puncture was performed with Columbia long needle (requiring RF) using ICE guidance. [...] HV interval was measured at 51msec and JP=[id number]. Post-procedure ICE showed no pericardial effusion.At this time, GA was stopped and patient was extubated; No immediate complications. Protamine was given at the end of the procedure.Sheaths were pulled in the lab and patient was transferred to the PACU in a stable condition. Performing Organization Address City/State/Zipcode Phone Number [facility] [address] [place] [address] Activated clotting time (09/15/2018 1:03 PM CDT)Only the most recent of5 resultswithin the time period is included. Activated clotting 152 96 - 152 sec [facility] DEPARTMENT OF time Comment: PATHOLOGY AND Meter ID: [id number] GENOMIC MEDICINE Charge Nurse: Marga Chang Specimen Performing Organization Address City/[facility] Phone Number [facility] DEPARTMENT OF PATHOLOGY AND [address] [place] [address] GENOMIC MEDICINE Prothrombin time with INR (09/15/2018 7:55 AM CDT)Only the most recent of3 resultswithin the time period is included. Pathologist [facility] Prothrombin time 14.4 12.0 - 15.0 [facility] DEPARTMENT OF sec PATHOLOGY AND GENOMIC MEDICINE INR 1.1 [facility] DEPARTMENT OF Comment: PATHOLOGY AND The International Normalized Ratio (INR) is a therapeutic GENOMIC MEDICINE monitoring tool for patients who are stable on oral anticoagulant therapy. An INR of 2.0-3.0 is suggested for deep vein thrombosis/pulmonary embolism. Specimen Blood Performing Organization Address City/[facility] Phone Number [facility] DEPARTMENT OF PATHOLOGY AND [address] [place] [address] GENOMIC MEDICINE Type and screen (09/15/2018 7:00 AM CDT)Only the most recent of2 resultswithin the time period is included. ABO grouping A [facility] DEPARTMENT OF PATHOLOGY AND GENOMIC MEDICINE Rh type POS [facility] DEPARTMENT OF PATHOLOGY AND GENOMIC MEDICINE Antibody screen (gel) NEG [facility] DEPARTMENT OF PATHOLOGY AND GENOMIC MEDICINE Specimen Blood Performing Organization Address [facility] Phone Number [facility] DEPARTMENT OF PATHOLOGY AND [address] [place] [address] GENOMIC MEDICINE ECG 12 lead (09/15/2018 6:44 AM CDT)Only the most recent of4 resultswithin the time period is included. Ventricular rate 62 [facility] MUSE Atrial rate 62 [facility] [place] interval 206 [facility] MUSE QRSD interval 100 [facility] QT interval 500 [facility] QTC interval 507 [facility] MUSE P axis 1 -21 [facility] QRS axis 1 -58 [facility] T wave axis 37 [facility] MUSE EKG impression Atrial-paced rhythm-Left anterior fascicular block-Prolonged QT -Abnormal ECG-In automated comparison with ECG of 23-JUN-2018 04:43,-Electronic atrial pacemaker has replaced Atrial fibrillation-Electroni [facility] MUSE mary Signed By Aakash Alonso MD ([id number]) on 09/15/2018 6:34:13 PM Specimen Performing Organization Address City/[facility] Phone Number [facility] MUSE [address] [place] [phone] POC glucose (06/24/2018 2:17 PM CDT)Only the most recent of25 resultswithin the time period is included. Pathologist [facility] POC glucose 98 65 - 99 mg/dL [facility] DEPARTMENT OF Comment: PATHOLOGY AND [facility] Notified RN GENOMIC MEDICINE Meter ID: [id number] Charge Nurse: Kishore Valdez Specimen Performing Organization Address City/[facility] Phone Number [facility] DEPARTMENT PATHOLOGY AND [address] [place] [phone] [employer] MEDICINE Estimated GFR (06/24/2018 5:33 AM CDT)Only the most recent of5 resultswithin the time period is included. [facility] GFR Non Af Amer 62 mL/min/1.73 [facility] DEPARTMENT OF m2 PATHOLOGY AND GENOMIC MEDICINE GFR Af Amer 75 mL/min/1.73 [facility] DEPARTMENT OF Comment: m2 PATHOLOGY AND Chronic [...] Americans. Specimen Plasma specimen Performing Organization Address [facility] Phone Number [facility] DEPARTMENT OF PATHOLOGY AND [address] [place] [phone] [employer] MEDICINE CBC hemogram (06/24/2018 5:33 AM CDT) WBC 9.03 4.50 - 11.00 k/uL [facility] DEPARTMENT OF PATHOLOGY AND GENOMIC MEDICINE RBC 4.07 (L) 4.20 - 5.50 m/uL [facility] DEPARTMENT OF PATHOLOGY AND GENOMIC MEDICINE HGB 12.2 12.0 - 16.0 g/dL [facility] DEPARTMENT OF PATHOLOGY AND GENOMIC MEDICINE HCT 37.3 37.0 - 47.0 % [facility] DEPARTMENT OF PATHOLOGY AND GENOMIC MEDICINE MCV 91.6 82.0 - 100.0 fL [facility] DEPARTMENT OF PATHOLOGY AND GENOMIC MEDICINE MCH 30.0 27.0 - 34.0 pg [facility] DEPARTMENT OF PATHOLOGY AND GENOMIC MEDICINE MCHC 32.7 31.0 - 37.0 g/dL [facility] DEPARTMENT OF PATHOLOGY AND GENOMIC MEDICINE RDW - SD 44.9 37.0 - 55.0 fL [facility] DEPARTMENT OF PATHOLOGY AND GENOMIC MEDICINE MPV 9.9 8.8 - 13.2 fL [facility] DEPARTMENT OF PATHOLOGY AND GENOMIC MEDICINE Platelet count 185 150 - 400 k/uL [facility] DEPARTMENT OF PATHOLOGY AND GENOMIC MEDICINE Nucleated RBC 0.00 /100 WBC [facility] DEPARTMENT OF PATHOLOGY AND GENOMIC MEDICINE Specimen Blood Performing Organization Address [facility] Phone Number [facility] DEPARTMENT OF PATHOLOGY AND [address] [place] [address] GENOMIC MEDICINE Phosphorus level (06/24/2018 5:33 AM CDT)Only the most recent of5 resultswithin the time period is included. Phosphorus 3.2 2.4 - 4.5 mg/dL [facility] DEPARTMENT OF PATHOLOGY AND GENOMIC MEDICINE Specimen Plasma specimen Performing Organization Address [facility] Phone Number [facility] DEPARTMENT OF PATHOLOGY AND [address] [place] [address] GENOMIC MEDICINE Magnesium level (06/24/2018 5:33 AM CDT)Only the most recent of5 resultswithin the time period is included. Magnesium 2.6 (H) 1.6 - 2.4 mg/dL [facility] DEPARTMENT OF PATHOLOGY AND GENOMIC MEDICINE Specimen Plasma specimen Performing Organization Address [facility] Phone Number [facility] DEPARTMENT OF PATHOLOGY AND [address] [place] [address] GENOMIC MEDICINE Ionized calcium (06/24/2018 5:33 AM CDT)Only the most recent of5 resultswithin the time period is included. pH 7.50 [facility] DEPARTMENT OF PATHOLOGY AND GENOMIC MEDICINE Ionized calcium 1.13 1.11 - 1.32 mmol/L [facility] DEPARTMENT OF PATHOLOGY AND GENOMIC MEDICINE Specimen Plasma specimen Performing Organization Address [facility] Phone Number [facility] DEPARTMENT OF PATHOLOGY AND [address] [place] [address] GENOMIC MEDICINE ECG Pre/Post Op-Tomorrow (06/23/2018 4:43 AM CDT) Ventricular rate 84 [facility] MUSE Atrial rate 97 [facility] MUSE QRSD interval 108 [facility] MUSE QT interval 452 [facility] M[facility] QTC interval 534 [facility] MUSE QRS axis 1 -51 [facility] MUSE T wave axis 57 [facility] MUSE EKG impression Atrial [facility] MUSE fibrillation-Left anterior fascicular block- - Specimen Performing Organization Address City/[facility] Phone Number [facility] MUSE [address] [place] [address] Partial thromboplastin time, activated (06/23/2018 1:20 AM CDT)Only the most recent of2 resultswithin the time period is included. PTT 33.2 23.0 - 36.0 [facility] DEPARTMENT OF Comment: sec PATHOLOGY AND PTT therapeutic range for unfractionated heparin is [facility] MEDICINE 61.0-112.0 seconds which corresponds to Anti-Xa 0.3-0.7 U/ml. Specimen Blood Performing Organization Address City/[facility] Phone Number [facility] DEPARTMENT OF PATHOLOGY AND [address] [place] [phone] [facility] Cv electrophysiology procedure (06/22/2018 7:50 PM CDT) [...] block aberrancy and the Emergency Room in [facility] indicated she required Life Flight to [facility] where she has been in the [...] pacing lead is a Medtronic 5076, serial #[id number].Measured R-waves 7 millivolts, pacing threshold 0.4 volts, impedance 928 ohms. 2.The atrial lead is a 5076, serial #[id number], measured flutter waves or fib waves 1.1 millivolt, pacing threshold not obtained impedance 891 ohms. 3.The pacemaker is a Medtronic Rosanna XT DR MRI model [id number], serial #[id number]. 4.Estimated blood loss 10 mL or less. CONCLUSIONS: Successful dual-chamber pacemaker insertion. RECOMMENDATIONS: 1.Initiate IV amiodarone. 2.Continue oral amiodarone. 3.Resume oral anticoagulants in the morning. Performing Organization Address [facility] Phone Number [facility] [address] [place] [phone] Thyroid stimulating hormone (06/20/2018 3:36 PM CDT) TSH 0.99 0.27 - 4.20 uIU/mL [facility] DEPARTMENT OF PATHOLOGY AND GENOMIC MEDICINE Specimen Plasma specimen Performing Organization Address [facility] Phone Number [facility] DEPARTMENT OF PATHOLOGY AND [address] [place] [phone] [facility] Potassium level (06/20/2018 3:36 PM CDT) Potassium 3.6 3.5 - 5.0 mEq/L [facility] DEPARTMENT OF PATHOLOGY AND GENOMIC MEDICINE Specimen Plasma specimen Performing Organization Address [facility] Phone Number [facility] DEPARTMENT OF PATHOLOGY AND [address] [place] [address] [facility] Hemoglobin A1c (06/20/2018 2:37 PM CDT) Hemoglobin A1C 5.3 4.0 - 5.6 % [facility] DEPARTMENT OF Comment: PATHOLOGY AND HbA1c cutoffs for diagnosing diabetes: GENOMIC MEDICINE 4.0% - 5.6%=normal 5.7% - 6.4%=increased risk for diabetes (prediabetes) >=6.5%=diabetes Goals for glycemic control (ADA 2016) < 7.0%Target for non adults with diabetes. More or less stringent targets may be appropriate for individual patients. <7.5% Target for Children and adolescents with type 1 diabetes. Specimen Performing Organization Address [facility]/Zipcode Phone Number [facility] DEPARTMENT OF PATHOLOGY AND [address] [place] [address] GENOMIC MEDICINE Echocardiogram complete w contrast and 3D if needed (06/20/2018 2:20 PM CDT) Specimen Narrative Performed At [facility] Echocardiography Report [address] [place], [address] [place] [address] Pat.Name:BERNABE SAM.ID:[id number] .Date: 06/20/2018Refer.MD:VALERIA SANTIAGO MD Exam Time: 2:31:00 PMStudy Type:Routine Echo Height:63.78in Weight:149.6lb BSA: 1.73 m2 DOBAge:1945,73Y Sex: FEMALEBP:172/79 HR:50 bpmSonogrphr: BERNADETTE Marrero Pat. Stat.:Inpatient Room:[facility] Study Status:Final Echo Event ID:[id number] Order ID:[id number] Reason for Study:Atrial fibrillation Procedures:2D Echo, Colorflow [...] RAPof 5 mmHg. MEASUREMENTS: 2D Parasternal [place] LVOT 1.9 cmLA Ds3.7 cm LVIDd3.7 cmIndex2.1 cm/m Ao An2.3 cm LVIDs2.6 cmAo Rtd 3.3 cm Index1.9 cm/m LV%fs 29.8 % LV Rhmv177.3 g(87-129) IVSd 1.4 cmLVM Yjmfp596.3 g/m2 LVPWd1.4 cmRWT0.7 LA Sng Plane LA Area 27.7 cm2(8.8-23.4) LA Vol85.2 ml Index49.3 ml/m LA LngAx 7.5 cm RA Sng Plane RA Area 22.2 cm2(8.3-19.5) RA Vol63.6 ml Index36.8 ml/m RA LngAx 6.5 cm DOPPLER LVOT Stroke Vol LVOT 1.9 cmLVOT CO4.3 l/min LVOT TVI29.5 cmLVOT CI2.5 l/m/m2 LVOT Tm348 tnpbST71 bpm LVOT SV 83.7 ml MV For Flow/Valve Assess MV pkVel 144.2 cm/sMV Dec T 417 msec MV pkPG8.3 mmHgMV TVI49 cm MV Mean G2.4 mmHgMV Area P1/2t1.8 cm2(4-6) Signed 06/20/2018 05:44 PM Bethany Grier MD Procedure Note Interface, Radiology Results In - 06/20/2018 5:46 PM CDT Echocardiography Report [address] [place] [address] Pat.Name: BERNABE SAM Pat.ID: [id number] .Date: 06/20/2018 Refer.MD: VALERIA SANTIAGO MD Exam Time: 2:31:00 PM Study Type:Routine Echo Height: 63.78in Weight: 149.6lb BSA: 1.73 m2 Age: 6 1945,73Y Sex: FEMALE BP: 172/79 HR: 50 bpm Sonogrphr: BERNADETTE Marrero Pat. Stat.:Inpatient Room: [facility] Study Status:Final Echo Event ID:[id number] Order ID: [id number] Reason for Study:Atrial fibrillation Procedures:2D Echo, Colorflow [...] of 5 mmHg. MEASUREMENTS: 2D Parasternal [place] LVOT 1.9 cm LA Ds 3.7 cm [...] Organization Address City/State/Zipcode Phone Number [facility] [address] [place] [address] Hepatic function panel (06/20/2018 12:58 PM CDT) Albumin 4.3 3.5 - 5.0 g/dL [facility] DEPARTMENT OF PATHOLOGY AND GENOMIC MEDICINE Total bilirubin 0.6 0.0 - 1.2 [facility] DEPARTMENT OF mg/dL PATHOLOGY AND GENOMIC MEDICINE Bilirubin direct <0.2 0.0 - 0.3 [facility] DEPARTMENT OF mg/dL PATHOLOGY AND GENOMIC MEDICINE Alkaline phosphatase 44 35 - 104 U/L [facility] DEPARTMENT OF PATHOLOGY AND GENOMIC MEDICINE Protein 7.6 6.3 - 8.3 g/dL [facility] DEPARTMENT OF Comment: PATHOLOGY AND 4.6-7.0 g/dL GENOMIC MEDICINE 1 week 4.4-7.6 g/dL 7 months-1year5.1-7.3 g/dL 1-2 years5.6-7.5 g/dL >3 years6.0-8.0 g/dL 18-150 6.3-8.3 g/dL ALT 21 5 - 50 U/L [facility] DEPARTMENT OF PATHOLOGY AND GENOMIC MEDICINE AST SEE 10 - 35 U/L [facility] DEPARTMENT OF COMMENTComment PATHOLOGY AND : GENOMIC MEDICINE Footnote------ --- Specimen Plasma specimen Performing Organization Address City/State/[facility] Phone Number [facility] DEPARTMENT OF PATHOLOGY AND [address] [place] [address] GENOMIC MEDICINE Lipid panel (06/20/2018 12:58 PM CDT) Cholesterol 286 (H) <200 mg/dL [facility] DEPARTMENT OF PATHOLOGY AND GENOMIC MEDICINE Triglycerides 123 <150 mg/dL [facility] DEPARTMENT OF PATHOLOGY AND GENOMIC MEDICINE HDL cholesterol 48 >40 mg/dL [facility] DEPARTMENT OF PATHOLOGY AND GENOMIC MEDICINE LDL cholesterol 218 (H)Comment: <100 mg/dL [facility] DEPARTMENT Result obtained by OF PATHOLOGY AND direct LDL GENOMIC MEDICINE measurement Lipid panel SeeBelow [facility] DEPARTMENT interpretation Comment: OF PATHOLOGY AND Total Cholesterol (mg/dL) GENOMIC MEDICINE <200 Desirable 326-708Vlzsdffvbo-yepi >=240High Triglycerides (mg/dL) <150 Normal 228-207Hzhkgvqgpy-vnbn 200-499High >=500Very high HDL Cholesterol (mg/dL) <40Low (male) <40Low (female) LDL Cholesterol (mg/dL) <100 Optimal 100-129Near or above optimal 167-009Rslqujatbb-zjiy 160-189High >=190Very high Risk Catergories that modify [...] specimen Performing Organization Address City/State/Zipcode Phone Number [facility] DEPARTMENT OF PATHOLOGY AND [address] [place] [address] GENOMIC MEDICINE after 05/22/2018 Advance Directives Patient has advance care planning documents on file. For more information, please contact:Archie Russo[address] [place] [address]
[2019-05-24 00:04] LABS: Basophils % 0.4 % (0-1.3); Eosinophils % 1.2 % (0-4.4); Lymphocytes % 51.9 % (15.3-44.8); MPV 7.8 fL (7.6-11.3); RBC Red Blood Cell Count 4.16 M/uL (3.86-4.86)
[2019-05-24 00:08] LABS: Protime INR 1.02
[2019-05-24 00:18] LABS: ALT/SGPT 21 U/L (12-78); AST/SGOT 15 U/L (15-37); Albumin 4.1 g/dL (3.4-5.0); Alkaline Phosphatase 56 U/L (45-117); BUN Blood Urea Nitrogen 17 mg/dL (7-18); Bicarbonate 25 mmol/L (21-32); Bilirubin Direct < 0.1 mg/dL (0-0.2); Bilirubin Total 0.3 mg/dL (0.2-1.0); Glucose Level 104 mg/dL (74-106); Magnesium 2.6 mg/dL (1.8-2.4); Potassium 3.7 mmol/L (3.5-5.1); Protein, Total 7.2 g/dL (6.4-8.2); Sodium Level 139 mmol/L (136-145); Troponin (Emerg Dept Use Only) < 0.02 ng/mL (0.0-0.045)
[2019-05-24] MEDS ORDERED: dexAMETHasone 10 MG/ML VIAL ONE (01:06)
[2019-05-24] MEDS ORDERED: NA CHLORIDE 0.9% 500 ML ONE (01:07)
[2019-05-24] MEDS ORDERED: DIPHENHYDRAMINE 50 MG/ML VIAL ONE (01:07)
[2019-05-24] MEDS ORDERED: ACETAMINOPHEN 500 MG TAB ONE (01:07)
[2019-05-24] MEDS ORDERED: METOCLOPRAMIDE 10 MG/2mL INJ ONE (01:07)
--- NOTE | 2019-05-24 02:48 | ER ---
Nurse's Notes [facility] Name: Bernabe Ty Age: 74 yrs Sex: Female : 1945 Arrival Date: 05/23/2019 Time: 22:37 Bed 2 Private MD: Diagnosis: headache;elevated blood pressure Presentation: 05/23 22:51 Presenting complaint: Patient states: I have been a really bad BROWN and blurry vision all la1 day, I checked my BP and it was high at home so I took 0.1mg of my clonidine at 2030. Transition of care: patient was not received from another setting of care. Onset of symptoms was May 23, 2019. Risk Assessment: Do you want to hurt yourself or someone else? Patient reports no desire to harm self or others. Initial Sepsis Screen: Does the patient meet any 2 criteria? No. Patient's initial sepsis screen is negative. Does the patient have a suspected source of infection? No. Patient's initial sepsis screen is negative. Care prior to arrival: None. 22:51 Method Of Arrival: Ambulatory la1 22:51 Acuity: CADY 2 la1 Historical: - Allergies: 22:50 Codeine; la1 22:50 Hydrocodone-Acetaminophen; la1 22:50 Sulfa (Sulfonamide Antibiotics); la1 22:50 amlodipine; la1 - Home Meds: 22:50 Xarelto 20 mg Oral tab 1 tab once daily [Active]; losartan 100 mg oral tab 1 tab once la1 daily [Active]; atenolol 100 mg Oral tab 1 tab once daily [Active]; duloxetine 30 mg oral cpDR 1 cap once daily [Active]; clonidine HCl 0.2 mg Oral tab 1 tab as needed [Active]; - PMHx: 22:50 Atrial Fib; Hypertension; la1 - PSHx: 22:50 pacemaker; la1 - Immunization history:: Adult Immunizations up to date. - Social history:: Smoking status: Patient/guardian denies using tobacco. - Ebola Screening: : No symptoms or risks identified at this time. - Family history:: not pertinent. - Hospitalizations: : No recent hospitalization is reported. Screenin:54 Abuse screen: Denies threats or abuse. Denies injuries from another. Nutritional lp1 screening: No deficits noted. Tuberculosis screening: No symptoms or risk factors identified. Fall Risk None identified. Assessment: 23:00 General: Appears in no apparent distress. Behavior is calm, cooperative, appropriate lp1 for age. Pain: Complains of pain in head Pain currently is 8 out of 10 on a pain scale. Neuro: Level of Consciousness is awake, alert, obeys commands, Oriented to person, place, time, situation, Reports blurred vision headache in entire. Cardiovascular: Patient's skin is warm and dry. Respiratory: Respiratory effort is even, unlabored, Respiratory pattern is regular. GI: No signs and/or symptoms were reported involving the gastrointestinal system. : No signs and/or symptoms were reported regarding the genitourinary system. EENT: No signs and/or symptoms were reported regarding the EENT system. Derm: Skin is pink, warm \\T\\ dry. Musculoskeletal: Circulation, motion, and sensation intact. 05/24 00:02 Reassessment: Patient appears in no apparent distress at this time. Patient returned lp1 from CT at this time. 00:17 Reassessment: Patient states some improvement on headache and blurred vision at this lp1 time. Reassessment: Patient is alert, oriented x 3, equal unlabored respirations, skin warm/dry/pink. 01:54 Reassessment: Patient is alert, oriented x 3, equal unlabored respirations, skin lp1 warm/dry/pink. Patient asked Provider if okay to taker her own medication, Provider states okay; Patient took own medication of Atenolol 50mg tabs x2 at this time Patient states feeling better. Patient states symptoms have improved. 03:19 Reassessment: Provider notified of patient with BP 190/89 HR 63; Verbal order to lp1 administer Hydralazine 10mg IV and monitor; Patient states slight headache to forehead area. 04:18 Reassessment: Patient states headache returning at this time; rated 6/10 on pain scale; lp1 Provider notified of no improvement of BP. 05:20 Reassessment: Patient appears in no apparent distress at this time. Patient is alert, lp1 oriented x 3, equal unlabored respirations, skin warm/dry/pink. Patient states headache unchanged. 06:29 Reassessment: Patient states "I think I still have this headache because I haven't lp1 eaten in 12 hours"; Patient states headache and nausea at this time; Dr. Doan at bedside to reassess patient; Patient given crackers, peanut butter, and juice. 07:08 Reassessment: Patient denies any relief from headache after eating snack; Dr. Doan at lp1 bedside to discuss plan of care with patient. 07:35 Reassessment: Pt ambulatory to restroom. aa5 07:40 Reassessment: Patient is alert, oriented x 3, equal unlabored respirations, skin aa5 warm/dry/pink. Urine specimen collected. Vital Signs: 05/23 22:51 BP 215 / 96; Pulse 72; Resp 16; Temp 97.6; Pulse Ox 98% on R/A; Weight 68.04 kg; Height la1 5 ft. 4 in. (162.56 cm); 23:00 BP 179 / 89; Pulse 60; Resp 18; Pulse Ox 98% on R/A; lp1 23:30 BP 180 / 84; Pulse 60; Resp 16; Pulse Ox 96% on R/A; lp1 05/24 00:16 BP 178 / 86; Pulse 60; Resp 17; Pulse Ox 97% on R/A; Pain 7/10; lp1 01:15 BP 178 / 82; Pulse 60; Resp 15; Pulse Ox 96% on R/A; lp1 01:56 BP 175 / 82; Pulse 61; Resp 16; Pulse Ox 97% on R/A; lp1 03:10 BP 190 / 89; Pulse 63; Resp 17; Pulse Ox 98% on R/A; lp1 03:45 BP 182 / 80; Pulse 60; Resp 17; Pulse Ox 96% on R/A; lp1 04:18 BP 193 / 80; Pulse 61; Resp 20; Pulse Ox 97% on R/A; Pain 6/10; lp1 04:30 BP 187 / 77; Pulse 60; Resp 16; Pulse Ox 95% on R/A; lp1 04:45 BP 182 / 79; Pulse 61; Resp 17; Pulse Ox 96% on R/A; lp1 05:00 BP 188 / 86; Pulse 63; Resp 17; Pulse Ox 97% on R/A; lp1 05:15 BP 179 / 79; Pulse 61; Resp 17; Pulse Ox 96% on R/A; lp1 05:30 BP 174 / 79; Pulse 65; Resp 15; Pulse Ox 95% on R/A; lp1 06:00 BP 173 / 81; Pulse 61; Resp 17; Pulse Ox 95% on R/A; lp1 06:15 BP 168 / 73; Pulse 67; Resp 13; Pulse Ox 97% on R/A; lp1 07:30 BP 170 / 74; Pulse 62; Resp 18 S; Temp 98.0(TE); Pulse Ox 97% on R/A; Pain 6/10; aa5 05/23 22:51 Body Mass Index 25.75 (68.04 kg, 162.56 cm) la1 ED Course: 05/23 22:37 Patient arrived in ED. ds1 22:51 Triage completed. la1 22:52 Arm band placed on right wrist. la1 22:56 Manav Doan MD is Attending Physician. wa 23:00 Patient has correct armband on for positive identification. Placed in gown. Bed in low lp1 position. benefits consulting analyst on. Pulse ox on. NIBP on. 23:02 Diana Jorge, SHANDRA is Primary Nurse. lp1 23:06 EKG done, by ED staff, reviewed by Manav Doan MD. mt 23:45 Inserted saline lock: 20 gauge in right antecubital area, using aseptic technique. lp1 Blood collected. 23:59 CT Head Brain wo Cont In Process Unspecified. EDMS 05/24 01:57 No provider procedures requiring assistance completed. lp1 02:47 Facundo Null MD is Referral Physician. wa 08:20 IV discontinued, intact, bleeding controlled, No redness/swelling at site. Pressure aa5 dressing applied. Administered Medications: 01:05 Drug: Decadron - Dexamethasone 10 mg Route: IVP; Site: right antecubital; lp1 01:58 Follow up: Response: No adverse reaction lp1 01:05 Drug: Tylenol 1000 mg Route: PO; lp1 01:58 Follow up: Response: No adverse reaction lp1 01:05 Drug: NS 0.9% 500 ml Route: IV; Rate: bolus; Site: right antecubital; lp1 01:59 Follow up: IV Status: Completed infusion; IV Intake: 500ml lp1 01:05 Drug: Reglan 5 mg Route: IVP; Site: right antecubital; lp1 01:58 Follow up: Response: No adverse reaction; Marked relief of symptoms lp1 01:06 Drug: Benadryl 12.5 mg Route: IVP; Site: right antecubital; lp1 01:58 Follow up: Response: No adverse reaction; Marked relief of symptoms lp1 03:28 Drug: hydrALAZINE 10 mg Route: IV; Rate: per protocol; Site: right antecubital; lp1 03:30 Follow up: Response: No change in condition; Blood pressure is unchanged; IV Status: lp1 Completed infusion 05:25 Drug: Labetalol 10 mg Route: IVP; Site: right antecubital; lp1 06:18 Follow up: Response: Blood pressure is lowered lp1 Intake: 01:59 IV: 500ml; Total: 500ml. lp1 Outcome: 02:48 Discharge ordered by . ma 07:54 Discharged to home ambulatory, with significant other. aa5 07:54 Condition: stable 07:54 Discharge instructions given to patient, Pt was instructed by Dr. Doan to take 100 mg of Atenolol tonight and double the dose the next night, pt also instructed to follow up with neurologist and PCP. Instructed on discharge instructions, follow up and referral plans. medication usage, Demonstrated understanding of instructions, follow-up care, medications. 07:57 Patient left the ED. aa5 08:05 Condition: Called pt about need for IV to be dc'd, pt states she will come back to ER aa5 for IV to be removed. Signatures: Dispatcher [employer] [facility] EstevezJesika muller dsMacie Waddell RN RN aa5 Diana Jorge RN RN lp1 Aditya Neal RN RN la1 Thompson, Moriah mt Appiah, William, MD MD wa
--- NOTE | 2019-05-24 02:48 | EDPHYS ---
Physician Documentation [facility] Name: Bernabe Ty Age: 74 yrs Sex: Female : 1945 Arrival Date: 05/23/2019 Time: 22:37 Bed 2 Private MD: ED Physician Manav Doan HPI: 05/24 02:19 This 74 yrs old Female presents to ER via Ambulatory with complaints of High wa Blood Pressure. 02:19 The patient complains of pain to the generalized. The patient describes the headache as wa aching, throbbing. Onset: The symptoms/episode began/occurred 3 day(s) ago. Associated signs and symptoms: Pertinent positives: blurred vision, elevated BP, Pertinent negatives: dizziness, fever, malaise, nausea, Photophobia vision loss. Severity of symptoms: At its worst the pain was moderate, in the emergency department the pain is unchanged. Headache History: The patient has had previous headaches and this one is similar to previous episodes. The symptoms are alleviated by nothing. the symptoms are aggravated by nothing. The patient has experienced similar episodes in the past, multiple times. The patient has not recently seen a physician. states takes PRN clonidine for when BP is high. h/o HAs. Believes she has HAs because of elevated BP. denies vomiting. denies chest pain. Historical: - Allergies: 05/23 22:50 Codeine; la1 22:50 Hydrocodone-Acetaminophen; la1 22:50 Sulfa (Sulfonamide Antibiotics); la1 22:50 amlodipine; la1 - Home Meds: 22:50 Xarelto 20 mg Oral tab 1 tab once daily [Active]; losartan 100 mg oral tab 1 tab once la1 daily [Active]; atenolol 100 mg Oral tab 1 tab once daily [Active]; duloxetine 30 mg oral cpDR 1 cap once daily [Active]; clonidine HCl 0.2 mg Oral tab 1 tab as needed [Active]; - PMHx: 22:50 Atrial Fib; Hypertension; la1 - PSHx: 22:50 pacemaker; la1 - Immunization history:: Adult Immunizations up to date. - Social history:: Smoking status: Patient/guardian denies using tobacco. - Ebola Screening: : No symptoms or risks identified at this time. - Family history:: not pertinent. - Hospitalizations: : No recent hospitalization is reported. ROS: 05/24 02:22 Constitutional: Negative for fever, chills, and weight loss, Eyes: Negative for injury, wa pain, redness, and discharge, ENT: Negative for injury, pain, and discharge, Neck: Negative for injury, pain, and swelling, Cardiovascular: Negative for chest pain, palpitations, and edema, Respiratory: Negative for shortness of breath, cough, wheezing, and pleuritic chest pain, Abdomen/GI: Negative for abdominal pain, nausea, vomiting, diarrhea, and constipation, Back: Negative for injury and pain, : Negative for injury, bleeding, discharge, and swelling, MS/Extremity: Negative for injury and deformity, Skin: Negative for injury, rash, and discoloration, Psych: Negative for depression, anxiety, suicide ideation, homicidal ideation, and hallucinations. Neuro: Positive for headache, visual changes, Negative for altered mental status. All other systems are negative. Exam: 02:22 Constitutional: This is a well developed, well nourished patient who is awake, alert, wa and in no acute distress. Head/Face: Normocephalic, atraumatic. Eyes: Pupils equal round and reactive to light, extra-ocular motions intact. Lids and lashes normal. Conjunctiva and sclera are non-icteric and not injected. Cornea within normal limits. Periorbital areas with no swelling, redness, or edema. ENT: Nares patent. No nasal discharge, no septal abnormalities noted. Tympanic membranes are normal and external auditory canals are clear. Oropharynx with no redness, swelling, or masses, exudates, or evidence of obstruction, uvula midline. Mucous membranes moist. Neck: Trachea midline, no thyromegaly or masses palpated, and no cervical lymphadenopathy. Supple, full range of motion without nuchal rigidity, or vertebral point tenderness. No Meningismus. Chest/axilla: Normal chest wall appearance and motion. Nontender with no deformity. No lesions are appreciated. Cardiovascular: Regular rate and rhythm with a normal S1 and S2. No gallops, murmurs, or rubs. Normal PMI, no JVD. No pulse deficits. Respiratory: Lungs have equal breath sounds bilaterally, clear to auscultation and percussion. No rales, rhonchi or wheezes noted. No increased work of breathing, no retractions or nasal flaring. Abdomen/GI: Soft, non-tender, with normal bowel sounds. No distension or tympany. No guarding or rebound. No evidence of tenderness throughout. Back: No spinal tenderness. No costovertebral tenderness. Full range of motion. Skin: Warm, dry with normal turgor. Normal color with no rashes, no lesions, and no evidence of cellulitis. MS/ Extremity: Pulses equal, no cyanosis. Neurovascular intact. Full, normal range of motion. Psych: Awake, alert, with orientation to person, place and time. Behavior, mood, and affect are within normal limits. 02:22 Neuro: Orientation: is normal, Mentation: is normal, Cranial nerves: grossly normal, Cerebellar function: is grossly normal, Motor: is normal, Sensation: is normal, Gait: is steady. Vital Signs: 05/23 22:51 BP 215 / 96; Pulse 72; Resp 16; Temp 97.6; Pulse Ox 98% on R/A; Weight 68.04 kg; Height la1 5 ft. 4 in. (162.56 cm); 23:00 BP 179 / 89; Pulse 60; Resp 18; Pulse Ox 98% on R/A; lp1 23:30 BP 180 / 84; Pulse 60; Resp 16; Pulse Ox 96% on R/A; lp1 05/24 00:16 BP 178 / 86; Pulse 60; Resp 17; Pulse Ox 97% on R/A; Pain 7/10; lp1 01:15 BP 178 / 82; Pulse 60; Resp 15; Pulse Ox 96% on R/A; lp1 01:56 BP 175 / 82; Pulse 61; Resp 16; Pulse Ox 97% on R/A; lp1 03:10 BP 190 / 89; Pulse 63; Resp 17; Pulse Ox 98% on R/A; lp1 03:45 BP 182 / 80; Pulse 60; Resp 17; Pulse Ox 96% on R/A; lp1 04:18 BP 193 / 80; Pulse 61; Resp 20; Pulse Ox 97% on R/A; Pain 6/10; lp1 04:30 BP 187 / 77; Pulse 60; Resp 16; Pulse Ox 95% on R/A; lp1 04:45 BP 182 / 79; Pulse 61; Resp 17; Pulse Ox 96% on R/A; lp1 05:00 BP 188 / 86; Pulse 63; Resp 17; Pulse Ox 97% on R/A; lp1 05:15 BP 179 / 79; Pulse 61; Resp 17; Pulse Ox 96% on R/A; lp1 05:30 BP 174 / 79; Pulse 65; Resp 15; Pulse Ox 95% on R/A; lp1 06:00 BP 173 / 81; Pulse 61; Resp 17; Pulse Ox 95% on R/A; lp1 06:15 BP 168 / 73; Pulse 67; Resp 13; Pulse Ox 97% on R/A; lp1 07:30 BP 170 / 74; Pulse 62; Resp 18 S; Temp 98.0(TE); Pulse Ox 97% on R/A; Pain 6/10; aa5 05/23 22:51 Body Mass Index 25.75 (68.04 kg, 162.56 cm) la1 MDM: 05/23 22:57 Patient medically screened. ak 05/24 02:23 Differential diagnosis: h/o BROWN. this episode same. elevated BP on prn clonidine. will wa discuss d/c prn clonidine due to rebound effects. BROWN. on xarelto. will CT r/o acute bleed. If negative, will give BROWN cocktail and reassess. Data reviewed: vital signs, nurses notes. 02:25 Test interpretation: by ED physician or midlevel provider: head CT negative. labs noted ak wnl. . Response to treatment: the patient's symptoms have markedly improved after treatment. ED course: BROWN resolved in ED took own evening dose of atenolol for BP 175/85. will advise d/c prn clonidine due to rebound HTN. will have f/u with neurology r/o fxnal BROWN such as migraines. 07:21 Special discussion: pt's BROWN improved to zero but BP remained elevated. pt and spouse wa were not comfortable leaving with that BP. have treated BP with meds. now 168/73. pt now with residual BROWN again. spoke with Dr. Ontiveros, advised for pt to double dose of atenolol and come see him in 2 days. will d/c with f/u with neurology. 05/23 23:30 Order name: Basic Metabolic Panel ak 05/23 23:30 Order name: CBC with Diff ak 05/23 23:30 Order name: Hepatic Function 05/23 23:30 Order name: Magnesium ak 05/23 23:30 Order name: Protime (+inr); Complete Time: 00:33 ak 05/23 23:30 Order name: Ptt, Activated; Complete Time: 00:33 ak 05/23 23:30 Order name: CT Head Brain wo Cont 05/23 23:30 Order name: Troponin (emerg Dept Use Only); Complete Time: 00:33 ak 05/23 23:31 Order name: Urine Microscopic Only ak 05/23 23:31 Order name: Basic Metabolic Panel; Complete Time: 00:33 EDMS 05/23 23:31 Order name: CBC with Automated Diff; Complete Time: 00:33 EDMS 05/23 23:32 Order name: Liver (Hepatic) Function; Complete Time: 00:33 EDMS 05/23 23:32 Order name: Magnesium; Complete Time: 00:33 EDMS 05/24 07:47 Order name: Urine Dipstick--Ancillary (enter results) [facility] 05/23 23:30 Order name: EKG; Complete Time: 23:32 ak 05/23 23:30 Order name: Cardiac monitoring; Complete Time: 23:41 ak 05/23 23:30 Order name: EKG - Nurse/Tech; Complete Time: 23:40 ak 05/23 23:30 Order name: IV Saline Lock; Complete Time: 23:53 ak 05/23 23:30 Order name: Labs collected and sent; Complete Time: 23:53 ak 05/23 23:30 Order name: NPO; Complete Time: 23:40 ak 05/23 23:30 Order name: O2 Sat Monitoring; Complete Time: 23:40 ak 05/23 23:30 Order name: Urine Dipstick-Ancillary (obtain specimen); Complete Time: 07:46 ak Administered Medications: 01:05 Drug: Decadron - Dexamethasone 10 mg Route: IVP; Site: right antecubital; lp1 01:58 Follow up: Response: No adverse reaction lp1 01:05 Drug: Tylenol 1000 mg Route: PO; lp1 01:58 Follow up: Response: No adverse reaction lp1 01:05 Drug: NS 0.9% 500 ml Route: IV; Rate: bolus; Site: right antecubital; lp1 01:59 Follow up: IV Status: Completed infusion; IV Intake: 500ml lp1 01:05 Drug: Reglan 5 mg Route: IVP; Site: right antecubital; lp1 01:58 Follow up: Response: No adverse reaction; Marked relief of symptoms lp1 01:06 Drug: Benadryl 12.5 mg Route: IVP; Site: right antecubital; lp1 01:58 Follow up: Response: No adverse reaction; Marked relief of symptoms lp1 03:28 Drug: hydrALAZINE 10 mg Route: IV; Rate: per protocol; Site: right antecubital; lp1 03:30 Follow up: Response: No change in condition; Blood pressure is unchanged; IV Status: lp1 Completed infusion 05:25 Drug: Labetalol 10 mg Route: IVP; Site: right antecubital; lp1 06:18 Follow up: Response: Blood pressure is lowered lp1 Disposition: 05/24/19 02:48 Discharged to Home. Impression: headache, elevated blood pressure. - Condition is Stable. - Discharge Instructions: Hypertension, [id number], General Headache Without Cause, [id number]. - Prescriptions for Compazine 10 mg Oral Tablet - take 1 tablet by ORAL route every 8 hours As needed; 10 tablet. - Medication Reconciliation Form, Thank You Letter, Antibiotic Education, Prescription Opioid Use form. - Follow up: Facundo Null MD; When: 1 - 2 days; Reason: Recheck today's complaints. - Problem is an acute exacerbation. - Symptoms have improved. - Notes: take tylenol with compazine for headache as needed. follow up with the neurologist Dr. Null for headache evaluation. discuss with your doctor to get of as needed clonidine as it may be rebouding your blood pressures Signatures: Dispatcher [employer] EDMS Macie Strickland RN RN aa5 Diana Jorge RN RN lp1 Aditya Neal RN RN la1 Manav Doan MD MD wa Corrections: (The following items were deleted from the chart) 07:57 02:48 05/24/2019 02:48 Discharged to Home. Impression: headache; elevated blood aa5 pressure. Condition is Stable. Forms are Medication Reconciliation Form, Thank You Letter, Antibiotic Education, Prescription Opioid Use. Follow up: Facundo Null; When: 1 - 2 days; Reason: Recheck today's complaints. Problem is an acute exacerbation. Symptoms have improved. wa
[2019-05-24] MEDS ORDERED: HYDRALAZINE HCL 20 MG/ML VIAL ONE (03:39)
[2019-05-24] MEDS ORDERED: LABETALOL 20 MG/4ML SYRINGE IV ONE (05:31)
[2019-05-24 08:03] LABS: Urine Bacteria NONE SEEN /HPF (<20); Urine Culture Reflex Order NOT NEEDED; Urine RBC NONE SEEN /HPF (NONE SEEN)
[2019-05-24 08:04] LABS: Urine Blood NEGATIVE (NEG); Urine Glucose TRACE (NEG); Urine Protein NEGATIVE (NEG)
--- NOTE | 2019-05-24 09:50 | RAD REPORT ---
EXAM DESCRIPTION: CT - Head Brain Wo Cont - 05/24/2019 6:28 am CLINICAL HISTORY: 74 years Female HEADACHE COMPARISON: None TECHNIQUE: Images were obtained in axial, sagittal, and coronal planes. This exam was performed according to our departmental dose-optimization program which includes use of Automated Exposure Control, adjustment of the mA and/or kV according to patient size and/or use of i terative reconstruction technique. FINDINGS: Ventricular system is age-appropriate in size. Mild prominence of the cortical sulci. No abnormal areas of increased or decreased attenuation involving the brain parenchyma. No extra-axia l fluid collections noted. No evidence for skull fracture. Symmetric aeration mastoid air cells bilaterally. Unremarkable parana annabella sinuses. IMPRESSION: No acute intracranial abnormality. No evidence for hemorrhage, mass lesion, or large acu te infarction. Electronically signed by: Leia Beatty MD 05/24/2019 12:12 AM CDT Due to temporary technical issues with the PACS/Fluency reporting system, reports are being signed by the in house radiologist as a courtesy to ensure prompt reporting. The interpreting radiologist is f ully responsible for the content of the report.
--- NOTE | 2019-05-24 12:52 | EKG ---
Test Date: 2019-05-23 Test Time: 23:00:12 Counseling Department Chair: SIGIFREDO MEASUREMENT RESULTS: Intervals: Rate: 63 MO: 220 QRSD: 94 QT: 454 QTc: 464 [place]: P: -26 MO: 220 QRS: -58 T: 72 INTERPRETIVE STATEMENTS: Atrial-paced rhythm with prolonged AV conduction Left anterior fascicular block Cannot rule out Anterior infarct, age undetermined Abnormal ECG Compared to ECG 09/25/2018 06:42:36 Myocardial infarct finding now present T-wave abnormality no longer present Possible ischemia no longer present Prolonged QT interval no longer present Electronically Signed On 05-24-19 12:49:39 CDT by Jorge Ontiveros
== END 2019-05-24 07:57 | disposition home or self-care (01) ==
LOC: ER 22:35
DX: R51 Headache (principal); I10 Essential (primary) hypertension; I48.91 Unspecified atrial fibrillation; Z79.01 Long term (current) use of anticoagulants; Z95.0 Presence of cardiac pacemaker; Z88.5 Allergy status to narcotic agent; Z88.2 Allergy status to sulfonamides; Z88.8 Allergy status to other drugs, medicaments and biological substances
CPT/HCPCS: 96361; 93005; 85025; 80048; 36415; 83735; 85610; 80076; 85730; 81003; 81015; 84484; 70450; 96375; 96374; 99285; J0360; J2765; J1100

== ENCOUNTER 2022-10-01 06:58 | Day surgery (SDC) | payer OTHER ==
--- NOTE | 2022-09-27 11:06 | RAD REPORT ---
EXAM DESCRIPTION: RAD - Chest Pa And Lat (2 Views) - 09/27/2022 10:58 am CLINICAL HISTORY: Pre-cath procedure Chest pain. COMPARISON: Chest Single View dated 09/25/2018; Chest Single View dated 06/20/2018; Chest Single View d ated 11/16/2017; Chest Pa And Lat (2 Views) dated 08/15/2016 FINDINGS: The lungs are emphysematous but clear. The heart is mildly enlarged with a dual lead pacer device present. No displaced fractures. 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 The USPSTF recommends annual screening for lung cancer with low-dose CT (LDCT) in adults aged 50 to 8 0 years who have a 20 pack-year smoking history and currently smoke or have quit within the past 15 y ears.
[2022-09-27 11:43] LABS: Absolute Lymphocytes (CBC) 2.2 K/uL (0.7-4.9); Hematocrit 41.6 % (36.0-45.0); Lymphocytes % 38.9 % (15.3-44.8); MCV 91.2 fL (80-100); MPV 7.6 fL (7.6-11.3); RBC Red Blood Cell Count 4.57 M/uL (3.86-4.86)
[2022-09-27 12:08] LABS: Protime INR 1.01
[2022-10-01] MEDS ORDERED: NA CHLORIDE 0.9% 500 ML ONE (07:02)
[2022-10-01] MEDS ORDERED: HEPA 1000U/500MLS 2,000 UNIT/1,000 ML BAG IV ONE (07:15)
[2022-10-01] MEDS ORDERED: LIDOCAINE 1% 20 ML MDV ONE (07:15)
[2022-10-01] MEDS ORDERED: FENTANYL CITR 100 MCG/2 ML ONE (07:16)
[2022-10-01] MEDS ORDERED: ATROPINE SULF 1 MG/10 ML SYR IV ONE (07:16)
[2022-10-01] MEDS ORDERED: MIDAZOLAM HCL 2 MG/2 ML INJ ONE ×2 (07:16→07:42)
[2022-10-01] MEDS ORDERED: NA CHLORIDE 0.9% 0 ML IV ONE (07:17)
[2022-10-01 09:03] VITALS: O2SAT 95
[2022-10-01 09:36] VITALS: BP 139/64
--- NOTE | 2022-10-01 16:54 | OP ---
Date of Procedure: 10/01/2022 Surgeon: Jorge Ontiveros MD Personnel Analyst: Ms. Melly Segundo. History: Mrs. Ty is a 77-year-old female with history of hypertension, dyslipidemia, left bundl e-branch block, new onset unstable angina. Brought to the optical laboratory manager today as an outpatient. She unde rwent a left heart catheterization, selective coronary arteriogram, left ventriculogram, left ventric ular end-diastolic pressure measurement, common femoral artery angiogram. Indication: New left bundle, new unstable angina. Procedure In Detail: In the optical laboratory manager, she was prepped and draped in routine sterile fashion. Given Versed and fentanyl for sedation. A 6-Macedonian sheath introduced in the right common femoral artery barclay ccessfully using 10 cc of Xylocaine and the Seldinger technique. Sabine catheter left and right wer e used to cannulate the left main and right main respectively. The left main was normal, circumflex was normal. She had 60% to 70% mid small diagonal stenosis. She had about a 40% proximal to mid LAD right at the diagonal takeoff. The JR4 catheter cannulated the RCA, which was normal. She had a co dominant system. The RCA catheter also was introduced via the aortic valve. There were no gradient. LV-gram was normal. Left ventricular end-diastolic pressure was 9 mmHg. There were severe mitral annular calcifications. They were obvious by angiography. We will plan an echocardiogram later. Th ere were no complications. Blood Loss: 5 cc. Postoperative Diagnoses: Moderate coronary artery disease, mitral annular calcification. Plan: Plan is for medical therapy. Common femoral artery angiogram was normal Angio-Seal was used t o close the case. The patient will be in the hospital for 2 hours of bedrest after the procedure. S he will go home after that and I will see her in the office in the next 2 weeks. NB/MODL Voice ID: [id number] Report ID: [id number]
== END 2022-10-01 09:50 | disposition home or self-care (01) ==
LOC: CCL 06:58
DX: I25.110 Atherosclerotic heart disease of native coronary artery with unstable angina pectoris (principal); I34.81 Nonrheumatic mitral (valve) annulus calcification; I35.1 Nonrheumatic aortic (valve) insufficiency; I44.7 Left bundle-branch block, unspecified; I10 Essential (primary) hypertension; E78.2 Mixed hyperlipidemia; M10.9 Gout, unspecified; Z95.0 Presence of cardiac pacemaker; Z88.2 Allergy status to sulfonamides; Z88.5 Allergy status to narcotic agent; Z88.6 Allergy status to analgesic agent; Z88.8 Allergy status to other drugs, medicaments and biological substances
CPT/HCPCS: 85025; 80048; 36415; 85610; 85730; 71046; 93458; C1893; Q9966; C1760; G0269; J2250; J3010; J7040; J1644; J0461; J0583

== ENCOUNTER 2022-10-05 10:46 | Emergency (ER) | payer OTHER ==
[2022-10-05 11:45] LABS: Absolute Lymphocytes (CBC) 2.1 K/uL (0.7-4.9); Hematocrit 40.1 % (36.0-45.0); Lymphocytes % 34.9 % (15.3-44.8); MCV 91.3 fL (80-100); MPV 7.2 fL (7.6-11.3); RBC Red Blood Cell Count 4.39 M/uL (3.86-4.86)
[2022-10-05 12:02] LABS: Albumin 4.2 g/dL (3.4-5.0); Bilirubin Total 0.6 mg/dL (0.2-1.0); Potassium 3.7 mmol/L (3.5-5.1); Protein, Total 7.9 g/dL (6.4-8.2)
[2022-10-05 12:05] LABS: Urine Blood Negative (Negative); Urine Glucose Negative (Negative); Urine Protein Negative (Negative); Urine Specific Gravity 1.015 (1.005-1.030)
[2022-10-05 12:16] LABS: Urine RBC <5 /HPF (None Seen)
--- NOTE | 2022-10-05 13:19 | RAD REPORT ---
EXAM DESCRIPTION: CT - Abdomen Pelvis W Contrast - 10/05/2022 12:50 pm CLINICAL HISTORY: Abdominal pain COMPARISON: none. TECHNIQUE: Computed axial tomography of the abdomen pelvis was obtained. 100 cc Isovue-300 was admin istered intravenously. Oral contrast was not requested which limits evaluation of bowel and appendix All CT scans are performed using dose optimization technique as appropriate and may include automated exposure control or mA/KV adjustment according to patient size. FINDINGS: The liver, spleen, pancreas, adrenal and kidneys appear unremarkable. There is no evidence of diverticulitis. No adnexal mass. Hysterectomy A moderate amount stool within the colon Mild anterior subluxation L5 on S1 IMPRESSION: Moderate amount stool within the colon
--- NOTE | 2022-10-05 13:59 | EDPHYS ---
Physician Documentation [facility] Name: Bernabe Ty Age: 77 yrs Sex: Female : 1945 Arrival Date: 10/05/2022 Time: 10:48 Bed 2 Private MD: Zay Florez V ED Physician Niall Alvarado HPI: 10/05 15:31 This 77 yrs old Female presents to ER via Ambulatory with complaints of Abdominal Pain. rt 15:31 The patient presents with abdominal pain right lower quadrant. Onset: The rt symptoms/episode began/occurred this morning. Onset: The symptoms/episode began/occurred this morning. The symptoms do not radiate. Associated signs and symptoms: none. The symptoms are described as achy. Modifying factors: The symptoms are alleviated by nothing, the symptoms are aggravated by. Severity of pain: At its worst the pain was moderate. Presents to the ED with right lower quadrant pain, nonradiating starting this morning. She denies similar pain previously. She denies other acute complaints.. Historical: - Allergies: 11:10 amlodipine; iw 11:10 Codeine; iw 11:10 Hydrocodone-Acetaminophen; iw 11:10 Sulfa (Sulfonamide Antibiotics); iw - PMHx: 11:10 Atrial Fib; Hypertension; iw - PSHx: 11:10 pacemaker; cardiac ablation; heart cath; iw - Immunization history:: Client reports receiving the 2nd dose of the Covid vaccine. - Social history:: Smoking status: Patient denies any tobacco usage or history of. - Family history:: not pertinent. ROS: 15:31 Constitutional: Negative for fever, chills, and weight loss, Eyes: Negative for injury, rt pain, redness, and discharge, ENT: Negative for injury, pain, and discharge, Neck: Negative for injury, pain, and swelling, Cardiovascular: Negative for chest pain, palpitations, and edema, Respiratory: Negative for shortness of breath, cough, wheezing, and pleuritic chest pain, : Negative for injury, bleeding, discharge, and swelling, MS/Extremity: Negative for injury and deformity, Skin: Negative for injury, rash, and discoloration, Neuro: Negative for headache, weakness, numbness, tingling, and seizure, Psych: Negative for depression, anxiety, suicide ideation, homicidal ideation, and hallucinations. 15:31 Abdomen/GI: Positive for abdominal pain, Negative for nausea, vomiting, and diarrhea. Exam: 15:31 Constitutional: This is a well developed, well nourished patient who is awake, alert, rt and in no acute distress. Head/Face: Normocephalic, atraumatic. Eyes: Pupils equal round and reactive to light, extra-ocular motions intact. Lids and lashes normal. Conjunctiva and sclera are non-icteric and not injected. Cornea within normal limits. Periorbital areas with no swelling, redness, or edema. ENT: Nares patent. No nasal discharge, no septal abnormalities noted. Tympanic membranes are normal and external auditory canals are clear. Oropharynx with no redness, swelling, or masses, exudates, or evidence of obstruction, uvula midline. Mucous membranes moist. Neck: Trachea midline, no thyromegaly or masses palpated, and no cervical lymphadenopathy. Supple, full range of motion without nuchal rigidity, or vertebral point tenderness. No Meningismus. Chest/axilla: Normal chest wall appearance and motion. Nontender with no deformity. No lesions are appreciated. Cardiovascular: Regular rate and rhythm with a normal S1 and S2. No gallops, murmurs, or rubs. Normal PMI, no JVD. No pulse deficits. Respiratory: Lungs have equal breath sounds bilaterally, clear to auscultation and percussion. No rales, rhonchi or wheezes noted. No increased work of breathing, no retractions or nasal flaring. MS/ Extremity: Pulses equal, no cyanosis. Neurovascular intact. Full, normal range of motion. Neuro: Awake and alert, GCS 15, oriented to person, place, time, and situation. Cranial nerves II-XII grossly intact. Motor strength 5/5 in all extremities. Sensory grossly intact. Cerebellar exam normal. Normal gait. Psych: Awake, alert, with orientation to person, place and time. Behavior, mood, and affect are within normal limits. 15:31 Abdomen/GI: Tenderness to the right lower quadrant without guarding, rebound, distention.. Vital Signs: 11:09 BP 180 / 84; Pulse 74; Resp 16; Temp 97.1(TE); Pulse Ox 98% ; Weight 70.31 kg; Height 5 iw ft. 4 in. (162.56 cm); Pain 8/10; 12:15 BP 157 / 75; Pulse 60; Resp 14; Pulse Ox 100% on R/A; Pain 0/10; mb9 13:04 BP 162 / 71; Pulse 60; Resp 16; Pulse Ox 97% on R/A; mb9 13:58 BP 168 / 68; Pulse 65; Resp 16; Pulse Ox 100% on R/A; Pain 0/10; mb9 11:09 Body Mass Index 26.61 (70.31 kg, 162.56 cm) iw MDM: 11:23 Patient medically screened. rt 15:31 Differential diagnosis: AAA, appendicitis, bowel obstruction. Data reviewed: vital rt signs, nurses notes, lab test result(s), EKG, radiologic studies. ED course: Presents to the ED with right lower quadrant pain. Her symptoms have resolved spontaneously without any treatment. She has a fairly benign abdominal examination. CT scan shows a moderate stool burden but no other acute findings. Labs are benign, urinalysis unremarkable. She is stable for outpatient care, discussed bowel softeners with the patient, return precautions discussed.. 10/05 11:30 Order name: CBC with Diff; Complete Time: 12:38 rt 10/05 11:30 Order name: CMP; Complete Time: 12:38 rt 10/05 11:30 Order name: Lipase; Complete Time: 12:38 rt 10/05 11:30 Order name: Urine Microscopic Only; Complete Time: 12:38 rt 10/05 11:30 Order name: CT Abd/Pelvis - IV Contrast Only; Complete Time: 13:46 rt 10/05 12:06 Order name: Urine Dipstick-Ancillary; Complete Time: 12:38 EDMS 10/05 11:30 Order name: IV Saline Lock; Complete Time: 11:40 rt 10/05 11:30 Order name: Labs collected and sent; Complete Time: 11:40 rt 10/05 11:30 Order name: Urine Dipstick-Ancillary (obtain specimen); Complete Time: 12:15 rt Administered Medications: No medications were administered Disposition Summary: 10/05/22 13:58 Discharge Ordered Location: Home rt Problem: new rt Symptoms: are resolved rt Condition: Stable rt Diagnosis - Abdominal pain, Generalized rt Followup: rt - With: Private Physician - When: 2 - 3 days - Reason: Discharge Instructions: - Discharge Summary Sheet rt - Abdominal Pain, Adult rt Forms: - Medication Reconciliation Form rt - Thank You Letter rt - Antibiotic Education rt - Prescription Opioid Use rt Signatures: Dispatcher [employer] Falguni Valdez, SHANDRA RN Niall Talbot MD MD rt
--- NOTE | 2022-10-05 13:59 | ER ---
Nurse's Notes [facility] Name: Bernabe Ty Age: 77 yrs Sex: Female : 1945 Arrival Date: 10/05/2022 Time: 10:48 Bed 2 Private MD: Zay Florez V Diagnosis: Abdominal pain, Generalized Presentation: 10/05 11:09 Chief complaint: Patient states: RLQ pain since 0730 this morning, every 30 seconds it iw feels like something is twisting, denies n/v/d , denies urinary s/s. Coronavirus screen: At this time, the client does not indicate any symptoms associated with coronavirus-19. Ebola Screen: Patient negative for fever greater than or equal to 101.5 degrees Fahrenheit, and additional compatible Ebola Virus Disease symptoms Patient denies exposure to infectious person. Patient denies travel to an Ebola-affected area in the 21 days before illness onset. No symptoms or risks identified at this time. Initial Sepsis Screen: Does the patient meet any 2 criteria? No. Patient's initial sepsis screen is negative. Does the patient have a suspected source of infection? No. Patient's initial sepsis screen is negative. Risk Assessment: Do you want to hurt yourself or someone else? Patient reports no desire to harm self or others. Onset of symptoms was October 05, 2022. 11:09 Method Of Arrival: Ambulatory iw 11:09 Acuity: CADY 3 iw Historical: - Allergies: 11:10 amlodipine; iw 11:10 Codeine; iw 11:10 Hydrocodone-Acetaminophen; iw 11:10 Sulfa (Sulfonamide Antibiotics); iw - PMHx: 11:10 Atrial Fib; Hypertension; iw - PSHx: 11:10 pacemaker; cardiac ablation; heart cath; iw - Immunization history:: Client reports receiving the 2nd dose of the Covid vaccine. - Social history:: Smoking status: Patient denies any tobacco usage or history of. - Family history:: not pertinent. Screenin:21 Abuse screen: Denies threats or abuse. Nutritional screening: No deficits noted. mb9 Tuberculosis screening: No symptoms or risk factors identified. Fall Risk None identified. Assessment: 11:18 General: Appears uncomfortable, Behavior is calm, cooperative, appropriate for age. mb9 Pain: Complains of pain in RLQ Pain does not radiate. Pain currently is 8 out of 10 on a pain scale. Quality of pain is described as twisting Pain began suddenly, Is intermittent. Neuro: [place] Agitation-Sedation Scale (RASS): 0 - Alert and Calm Level of Consciousness is awake, alert, obeys commands, Oriented to person, place, time, situation, Appropriate for age. Cardiovascular: Heart tones S1 S2 present Rhythm is regular. Respiratory: Airway is patent Respiratory effort is even, unlabored, Respiratory pattern is regular, symmetrical. GI: Abdomen is round Bowel sounds present X 4 quads. Abd is soft X 4 quads Abdomen is tender to palpation in right lower quadrant Patient currently denies diarrhea, nausea, vomiting. : No signs and/or symptoms were reported regarding the genitourinary system. EENT: No signs and/or symptoms were reported regarding the EENT system. Derm: Skin is pink, warm \T\ dry. Musculoskeletal: Range of motion: intact in all extremities. 12:00 Reassessment: pt stated pain in the RLQ went away. MD notified. mb9 13:57 General: Appears in no apparent distress. comfortable, Behavior is calm, cooperative, mb9 appropriate for age. Pain: Denies pain. Neuro: Level of Consciousness is awake, alert, obeys commands. Cardiovascular: Rhythm is regular. Respiratory: Airway is patent. Derm: Skin is pink, warm \T\ dry. Vital Signs: 11:09 BP 180 / 84; Pulse 74; Resp 16; Temp 97.1(TE); Pulse Ox 98% ; Weight 70.31 kg; Height 5 iw ft. 4 in. (162.56 cm); Pain 8/10; 12:15 BP 157 / 75; Pulse 60; Resp 14; Pulse Ox 100% on R/A; Pain 0/10; mb9 13:04 BP 162 / 71; Pulse 60; Resp 16; Pulse Ox 97% on R/A; mb9 13:58 BP 168 / 68; Pulse 65; Resp 16; Pulse Ox 100% on R/A; Pain 0/10; mb9 11:09 Body Mass Index 26.61 (70.31 kg, 162.56 cm) iw ED Course: 10:48 Patient arrived in ED. as 10:48 Zay Florez MD is Private Physician. as 10:49 Niall Alvarado MD is Attending Physician. rt 11:10 Triage completed. iw 11:11 Arm band placed on. iw 11:14 Tania Christopher, RN is Primary Nurse. mb9 11:21 Patient has correct armband on for positive identification. Placed in gown. Bed in low mb9 position. Call light in reach. Side rails up X 1. Client placed on continuous cardiac and pulse oximetry monitoring. NIBP monitoring applied. 12:15 Urine Microscopic Only Sent. mb9 12:52 CT Abd/Pelvis - IV Contrast Only In Process Unspecified. EDMS 14:07 No provider procedures requiring assistance completed. mb9 14:08 IV discontinued, intact, bleeding controlled, No redness/swelling at site. Pressure mb9 dressing applied. Administered Medications: No medications were administered Medication: 11:21 VIS not applicable for this client. mb9 Outcome: 13:58 Discharge ordered by MD. rt 14:08 Discharged to home ambulatory. mb9 14:08 Condition: stable 14:08 Discharge instructions given to patient, Instructed on discharge instructions, follow up and referral plans. Demonstrated understanding of instructions, follow-up care. 14:09 Patient left the ED. mb9 Signatures: Dispatcher [employer] EDMS Lola Pandey Irene, RN RN iw Tania Christopher, RN RN mb9 Niall Alvarado MD MD rt Corrections: (The following items were deleted from the chart) 11:11 11:09 Pulse 74bpm; Resp 16bpm; Pulse Ox 98%; 70.31 kg; Height 5 ft. 4 in.; BMI: 26.6; iw Pain 8/10; iw 11:15 11:09 BP 180 / 84; Pulse 74bpm; Resp 16bpm; Pulse Ox 98%; 70.31 kg; Height 5 ft. 4 in.; iw BMI: 26.6; Pain 8/10; iw
[2022-10-05 14:13] VITALS: TEMP 97.1
[2022-10-05 14:17] VITALS: BP 168/68; O2SAT 100
== END 2022-10-05 14:09 | disposition home or self-care (01) ==
LOC: ER 10:46
DX: R10.84 Generalized abdominal pain (principal); I10 Essential (primary) hypertension; Z95.0 Presence of cardiac pacemaker; Z88.2 Allergy status to sulfonamides; Z88.5 Allergy status to narcotic agent; Z88.8 Allergy status to other drugs, medicaments and biological substances
CPT/HCPCS: 85025; 36415; 83690; 80053; 74177; 99283; Q9967; 81003; 81015

== ENCOUNTER 2023-10-16 14:00 | Emergency (ER) | payer OTHER ==
--- OUTSIDE RECORDS SUMMARY | 2023-10-16 14:04 | XMS REPORT | Continuity of Care Document ---
:1945 Author Organization [facility] t Address [address] [place] [address] Care Team Providers Name Role Phone Asked, No Pcp Primary Care Physician Unavailable [facility] Attending Clinician Unavailable [facility] Admitting Clinician Unavailable Payers Payer Name Policy Type Policy Number Effective Date Expiration Date S herminio MARIA (MEDICARE [id number] REPLACEMENT PPO) Problems Condition Condition Condition Status Onset Resolution Last Treating Co mments Source Name Details Category Date Date Treatment Clinician Date PAF PAF Disease Active 2017-11 [facility] (paroxysma (paroxysma 0-30 st l atrial l atrial 00:00: Hospit a fibrillati fibrillati 00 l on) on) Chronic Chronic Disease Active [facility] atrial atrial 8-04 st fibrillati fibrillati 00:00: Ho spita on on 00 l Paroxysmal Paroxysmal Disease Active M [facility]i SVT SVT 8-04 st (supravent (supravent 00:00: Ho spita ricular ricular 00 l tachycardi tachycardi a) a) Essential Essential Disease Active Met hodi hypertensi hypertensi 8-04 st on on 00:00: Hospita 00 l Allergies, Adverse Reactions, Alerts Allergy Allergy Status Severity Reaction(s) Onset Inactive Treating Comm ents Source Name Type Date Date Clinician Sulfamet Propensi Active Rash 2017-11 Method i hoxazole ty to 0-30 st -Trimeth adverse 00:00: Hospita oprim reaction 00 l s to drug Codeine Propensi Active GI 2018-0 Method[facility] ty to Intolerance 8-04 st adverse 00:00: Hospita reaction 00 l s to drug Hydrocod Propensi Active GI Method i one ty to Intolerance 06-20 st adverse 00:00: Hospita reaction 00 l s to drug Sulfa Propensi Active GI [facility] (Sulfona ty to Intolerance 8 st mide adverse 00:00: Hospita Antibiot reaction 00 l ics) s to drug Family History Family Member Diagnosis Comments Start Date Stop Date Source Natural brother Heart disease [facility] Natural father [facility] Natural mother [facility] Natural sister Heart disease [facility] Social History Social Habit Start Date Stop Date Quantity Comments Source Sexual orientation [facility] History of Social 2019-07-04 2019-07-04 [facility] function 00:[facility] 00:00:00 Hospital Tobacco use and 2018-09-15 2018-09-15 [facility] 00:[facility] 00:00:00 tobacco non-user Hospital Sex Ass[facility] At [birth year] [facility] Smoking Status Start Date Stop Date Source Never smoked tobacco [facility] Medications Ordered Filled Start Stop Current Ordering Indication Dosage Frequency Signature Comments Components Source Medication Medication Date Date Medication? Clinician (SIG) Name Name amIODarone Yes Take 400mg M ethodi (PACERONE) 06-24 (2 tabs) st 200 MG 00:00: by mouth Hospita tablet 00 twice a l day for 1 week then 200mg (1 tab) by mouth twice a day until wound check visit. amIODarone Yes Take 400mg M ethodi (PACERONE) 06-24 (2 tabs) st 200 MG 00:00: by mouth Hospita tablet 00 twice a l day for 1 week then 200mg (1 tab) by mouth twice a day until wound check visit. amIODarone Yes Take 400mg M ethodi (PACERONE) 06-24 (2 tabs) st 200 MG 00:00: by mouth Hospita tablet 00 twice a l day for 1 week then 200mg (1 tab) by mouth twice a day until wound check visit. amIODarone Yes Take 400mg M ethodi (PACERONE) 06-24 (2 tabs) st 200 MG 00:00: by mouth Hospita tablet 00 twice a l day for 1 week then 200mg (1 tab) by mouth twice a day until wound check visit. amIODarone Yes Take 400mg M ethodi (PACERONE) 06-24 (2 tabs) st 200 MG 00:00: by mouth Hospita tablet 00 twice a l day for 1 week then 200mg (1 tab) by mouth twice a day until wound check visit. amIODarone Yes Take 400mg M ethodi (PACERONE) 06-24 (2 tabs) st 200 MG 00:00: by mouth Hospita tablet 00 twice a l day for 1 week then 200mg (1 tab) by mouth twice a day until wound check visit. amIODarone Yes Take 400mg M ethodi (PACERONE) 06-24 (2 tabs) st 200 MG 00:00: by mouth Hospita tablet 00 twice a l day for 1 week then 200mg (1 tab) by mouth twice a day until wound check visit. XARELTO 20 0 Yes 20mg QD Take 20 mg M [facility]i mg tablet 7-[address] 00:00: every Hospita 00 evening. l XARELTO 20 0 Yes 20mg QD Take 20 mg M [facility] mg tablet 7-[address] 00:00: every Hospita 00 evening. l XARELTO 20 2017-0 Yes 20mg QD Take 20 mg M [facility] mg tablet 7-[address] 00:00: every Hospita 00 evening. l XARELTO 20 2017-0 Yes 20mg QD Take 20 mg M [facility] mg tablet 7-[address] 00:00: every Hospita 00 evening. l XARELTO 20 0 Yes 20mg QD Take 20 mg M [facility] mg tablet 7-[address] 00:00: every Hospita 00 evening. l XARELTO 20 2017-0 Yes 20mg QD Take 20 mg [facility] mg tablet 7-[address] 00:00: every Hospita 00 evening. l XARELTO 20 2017-0 Yes 20mg QD Take 20 mg M [facility] mg tablet 7-[address] 00:00: every Hospita 00 evening. l losartan-hy 2017-0 Yes 1{tbl} QD Take 1 Me [facility] drochloroth 7-[address] iazide 00:00: mouth Hospita (HYZAAR) 00 daily. l 100-25 mg per tablet losartan-hy 2018-0 Yes 1{tbl} QD Take 1 Me thodi drochloroth 7-[address] iazide 00:00: mouth Hospita (HYZAAR) 00 daily. l 100-25 mg per tablet losartan-hy 2018-0 Yes 1{tbl} QD Take 1 Me thodi drochloroth 7-[address] iazide 00:00: mouth Hospita (HYZAAR) 00 daily. l 100-25 mg per tablet losartan-hy 2018-0 Yes 1{tbl} QD Take 1 Me thodi drochloroth 7-[address] iazide 00:00: mouth Hospita (HYZAAR) 00 daily. l 100-25 mg per tablet losartan-hy 2018-0 Yes 1{tbl} QD Take 1 Me thodi drochloroth 7-[address] iazide 00:00: mouth Hospita (HYZAAR) 00 daily. l 100-25 mg per tablet losartan-hy 2018-0 Yes 1{tbl} QD Take 1 Me thodi drochloroth 7-[address] iazide 00:00: mouth Hospita (HYZAAR) 00 daily. l 100-25 mg per tablet losartan-hy 2018-0 Yes 1{tbl} QD Take 1 Me thodi drochloroth 7-[address] iazide 00:00: mouth Hospita (HYZAAR) 00 daily. l 100-25 mg per tablet Procedures This patient has no known procedures. Plan of Care Planned Activity Planned Date Details Comments Source Future Scheduled 2023-09-10 COVID-19 VACCINE (#1) [facility] Test 19:50:06 [code = COVID-19 VACCINE (#1)] Future Scheduled 2023-09-10 SHINGLES VACCINES (1 [facility] Test 19:50:06 of 2) [code = SHINGLES VACCINES (1 of 2)] Future Scheduled 2023-09-10 65+ PNEUMOCOCCAL [facility] Test 19:50:06 VACCINE (1 - PCV) [code = 65+ PNEUMOCOCCAL VACCINE (1 - PCV)] Future Scheduled 2023-09-10 INFLUENZA VACCINE (#1) [facility] Test 19:50:06 [code = INFLUENZA VACCINE (#1)] Future Scheduled 2023-09-10 COVID-19 VACCINE (#1) [facility] Hospital Test 19:50:06 [code = COVID-19 VACCINE (#1)] Future Scheduled 2023-09-10 SHINGLES VACCINES (1 [facility] Hospital Test 19:50:06 of 2) [code = SHINGLES VACCINES (1 of 2)] Future Scheduled 2023-09-10 65+ PNEUMOCOCCAL [facility] Hospital Test 19:50:06 VACCINE (1 - PCV) [code = 65+ PNEUMOCOCCAL VACCINE (1 - PCV)] Future Scheduled 2023-09-10 INFLUENZA VACCINE (#1) [facility] Test 19:50:06 [code = INFLUENZA VACCINE (#1)] Future Scheduled 2023-09-10 COVID-19 VACCINE (#1) [facility] Hospital Test 19:50:06 [code = COVID-19 VACCINE (#1)] Future Scheduled 2023-09-10 SHINGLES VACCINES (1 [facility] Test 19:50:06 of 2) [code = SHINGLES VACCINES (1 of 2)] Future Scheduled 2023-09-10 65+ PNEUMOCOCCAL [facility] Test 19:50:06 VACCINE (1 - PCV) [code = 65+ PNEUMOCOCCAL VACCINE (1 - PCV)] Future Scheduled 2023-09-10 INFLUENZA VACCINE (#1) [facility] Test 19:50:06 [code = INFLUENZA VACCINE (#1)] Future Scheduled 2023-09-10 COVID-19 VACCINE (#1) [facility] Hospital Test 19:50:06 [code = COVID-19 VACCINE (#1)] Future Scheduled 2023-09-10 SHINGLES VACCINES (1 [facility] Test 19:50:06 of 2) [code = SHINGLES VACCINES (1 of 2)] Future Scheduled 2023-09-10 65+ PNEUMOCOCCAL [facility] Hospital Test 19:50:06 VACCINE (1 - PCV) [code = 65+ PNEUMOCOCCAL VACCINE (1 - PCV)] Future Scheduled 2023-09-10 INFLUENZA VACCINE (#1) [facility] Test 19:50:06 [code = INFLUENZA VACCINE (#1)] Future Scheduled 2022-11-21 COVID-19 VACCINE (#1) [facility] Test 13:26:13 [code = COVID-19 VACCINE (#1)] Future Scheduled 2022-11-21 BREAST CANCER [facility] Test 13:26:13 SCREENING [code = BREAST CANCER SCREENING] Future Scheduled 2022-11-21 COLONOSCOPY SCREENING [facility] Test 13:26:13 [code = COLONOSCOPY SCREENING] Future Scheduled 2022-11-21 SHINGLES VACCINES (1 [facility] Test 13:26:13 of 2) [code = SHINGLES VACCINES (1 of 2)] Future Scheduled 2022-11-21 65+ PNEUMOCOCCAL [facility] Test 13:26:13 VACCINE (1 - PCV) [code = 65+ PNEUMOCOCCAL VACCINE (1 - PCV)] Future Scheduled 2022-11-21 INFLUENZA VACCINE Method [facility] Hospital Test 13:26:13 [code = INFLUENZA VACCINE] Future Scheduled 2022-11-21 COVID-19 VACCINE (#1) [facility] Test 13:26:13 [code = COVID-19 VACCINE (#1)] Future Scheduled 2022-11-21 BREAST CANCER [facility] Test 13:26:13 SCREENING [code = BREAST CANCER SCREENING] Future Scheduled 2022-11-21 COLONOSCOPY SCREENING [facility] Test 13:26:13 [code = COLONOSCOPY SCREENING] Future Scheduled 2022-11-21 SHINGLES VACCINES (1 [facility] Test 13:26:13 of 2) [code = SHINGLES VACCINES (1 of 2)] Future Scheduled 2022-11-21 65+ [facility]OCCAL [facility] Test 13:26:13 VACCINE (1 - PCV) [code = 65+ PNEUMOCOCCAL VACCINE (1 - PCV)] Future Scheduled 2022-11-21 INFLUENZA VACCINE Method [facility] Test 13:26:13 [code = INFLUENZA VACCINE] Future Scheduled 2022-11-21 COVID-19 VACCINE (#1) [facility] Hospital Test 13:26:13 [code = COVID-19 VACCINE (#1)] Future Scheduled 2022-11-21 BREAST CANCER [facility] Test 13:26:13 SCREENING [code = BREAST CANCER SCREENING] Future Scheduled 2022-11-21 COLONOSCOPY SCREENING [facility] Test 13:26:13 [code = COLONOSCOPY SCREENING] Future Scheduled 2022-11-21 SHINGLES VACCINES (1 [facility] Test 13:26:13 of 2) [code = SHINGLES VACCINES (1 of 2)] Future Scheduled 2022-11-21 65+ PNEUMOCOCCAL [facility] Test 13:26:13 VACCINE (1 - PCV) [code = 65+ PNEUMOCOCCAL VACCINE (1 - PCV)] Future Scheduled 2022-11-21 INFLUENZA VACCINE Method [facility] Test 13:26:13 [code = INFLUENZA VACCINE] Encounters Start End Encounter Admission Attending Care Care Encounter Source Date/Time Date/Time Type Type Clinicians Facility Department ID 2022-11-12 2022-11-12 [id number] [facility]00 [facility] [id number] [facility] 2022-11-12 2022-11-12 Outpatient [facility] PR[facility] PRIV [id number] [facility] 00:00:00 00:00:00 [facility] [id number] [facility] l 2022-11-10 2022-11-10 [id number] [facility] 00:[facility]:00 00:00:00 [facility] [id number] Medica l Results This patient has no known results.
--- NOTE | 2023-10-16 15:05 | RAD REPORT ---
EXAM DESCRIPTION: Sara Zaldivar And Marimar (2 Views)10/16/2023 2:54 pm CLINICAL HISTORY: Cough COMPARISON: February 2023 FINDINGS: The lungs appear clear of acute infiltrate. The heart is mildly enlarged. Pacemaker leads in place IMPRESSION: No acute abnormalities displayed
[2023-10-16 15:23] LABS: SARS-CoV-2 Antigen Rapid Res Negative (Negative)
--- NOTE | 2023-10-16 16:20 | ER ---
Nurse's Notes [facility] Name: Bernabe Ty Age: 78 yrs Sex: Female : 1945 Arrival Date: 10/16/2023 Time: 14:00 Bed IW3 Private MD: Diagnosis: Influenza A Presentation: 10/16 14:34 Chief complaint: Patient states: started coughing last Friday , not getting any ko1 better, runny nose, sneezing, chest hurts from coughing. took home covid test and it was negative. Coronavirus screen: At this time, the client does not indicate any symptoms associated with coronavirus-19. Ebola Screen: No symptoms or risks identified at this time. Initial Sepsis Screen: Does the patient meet any 2 criteria? No. Patient's initial sepsis screen is negative. Does the patient have a suspected source of infection? No. Patient's initial sepsis screen is negative. Risk Assessment: Do you want to hurt yourself or someone else? Patient reports no desire to harm self or others. Onset of symptoms is unknown. 14:34 Method Of Arrival: Ambulatory ko1 14:34 Acuity: CADY 4 ko1 Triage Assessment: 14:36 General: Appears in no apparent distress. Behavior is calm, cooperative, appropriate ko1 for age. Pain: Complains of pain in chest. Cardiovascular: No deficits noted. Historical: - Allergies: 14:36 amlodipine; ko1 14:36 Codeine; ko1 14:36 Hydrocodone-Acetaminophen; ko1 14:36 Sulfa (Sulfonamide Antibiotics); ko1 - PMHx: 14:36 Atrial Fib; Hypertension; ko1 - PSHx: 14:36 Cardiac Ablation; heart cath; pacemaker; ko1 - Immunization history:: Adult Immunizations up to date. - Social history:: Smoking status: Patient denies any tobacco usage or history of. Screenin:55 [facility] ED Fall Risk Assessment (Adult) History of falling in the last 3 months, ko1 including since admission No falls in past 3 months (0 pts) Confusion or Disorientation No (0 pts) Intoxicated or Sedated No (0 pts) Impaired Gait No (0 pts) Mobility Assist Device Used No (0 pt) Altered Elimination No (0 pt) Score/Fall Risk Level 0 - 2 = Low Risk Oriented to surroundings, Maintained a safe environment, Educated pt \T\ family on fall prevention, incl call for assistance when getting out of bed, Assessed \T\ reinforced patient's understanding of fall precautions, Provided non-skid footwear, Hourly rounding (assess needs \T\ fall precautionary measures) done, Used ambulatory aids as needed (educated on \T\ assisted with). Abuse screen: Denies threats or abuse. Denies injuries from another. Nutritional screening: No deficits noted. Tuberculosis screening: No symptoms or risk factors identified. Assessment: 16:55 Pain: Pain does not radiate. Pain began gradually. ko1 Vital Signs: 14:34 BP 159 / 84; Pulse 84; Resp 18; Temp 98.8; Pulse Ox 100% ; ko1 ED Course: 14:03 Patient arrived in ED. im 14:06 Janki Viveros PA-C is PHCP. sb4 14:06 Gabino Burns MD is Attending Physician. sb4 14:36 Triage completed. ko1 14:36 Arm band placed on right wrist. Patient placed in waiting room, Patient notified of ko1 wait time. 14:56 Chest Pa And Lat (2 Views) XRAY In Process Unspecified. EDMS 16:55 Patient has correct armband on for positive identification. Bed in low position. Call ko1 light in reach. Provided Education on: na. Cardiac monitoring not applicable on this patient. 16:55 No provider procedures requiring assistance completed. Patient did not have IV access ko1 during this emergency room visit. Patient maintains SpO2 saturation greater than 95% on room air. Administered Medications: No medications were administered Medication: 16:55 VIS not applicable for this client. ko1 Outcome: 16:20 Discharge ordered by . sb4 16:55 Discharged to home ambulatory, ko1 16:55 Condition: stable 16:55 Discharge instructions given to patient, family, Instructed on discharge instructions, follow up and referral plans. Demonstrated understanding of instructions, follow-up care, 16:56 Patient left the ED. ko1 Signatures: Dispatcher [employer] EDMS Galilea Foster, RN RN ko1 Janki Viveros PA-C PA-C sb4 Abiola Hanna im
--- NOTE | 2023-10-16 16:20 | EDPHYS ---
Physician Documentation [facility] Name: Bernabe Ty Age: 78 yrs Sex: Female : 1945 Arrival Date: 10/16/2023 Time: 14:00 Bed IW3 Private MD: ED Physician Gabino Burns HPI: 10/16 14:46 This 78 yrs old Female presents to ER via Ambulatory with complaints of Cough, Chest sb4 Pain. 14:54 Patient reports cough, chest pain, congestion x4 days. She states that she was around sb4 her daughter who is also sick. She denies any fever, shortness of breath, nausea, vomiting, diarrhea. She states that her cough has become slightly productive and she came in to make sure she does not have any pneumonia. Historical: - Allergies: 14:36 amlodipine; ko1 14:36 Codeine; ko1 14:36 Hydrocodone-Acetaminophen; ko1 14:36 Sulfa (Sulfonamide Antibiotics); ko1 - PMHx: 14:36 Atrial Fib; Hypertension; ko1 - PSHx: 14:36 Cardiac Ablation; heart cath; pacemaker; ko1 - Immunization history:: Adult Immunizations up to date. - Social history:: Smoking status: Patient denies any tobacco usage or history of. ROS: 14:54 Constitutional: Negative for fever, chills, and weight loss, sb4 14:54 ENT: Positive for sinus congestion, 14:54 Cardiovascular: Positive for chest pain, 14:54 Respiratory: Positive for cough, 14:54 All other systems are negative, Exam: 14:54 Head/face: Sinus tenderness, is not appreciated, sb4 14:57 Constitutional: This is a well developed, well nourished patient who is awake, alert, sb4 and in no acute distress. Head/Face: Normocephalic, atraumatic. Eyes: Extra-ocular motions intact. Periorbital areas with no swelling, redness, or edema. ENT: Mucous membranes moist. Cardiovascular: Regular rate and rhythm with a normal S1 and S2. Respiratory: Lungs have equal breath sounds bilaterally, clear to auscultation and percussion. No rales, rhonchi or wheezes noted. No increased work of breathing, no retractions or nasal flaring. Abdomen/GI: Soft, non-tender, no distension. Skin: Warm, dry with normal turgor. Normal color with no rashes, no lesions, and no evidence of cellulitis. MS/ Extremity: Pulses equal, no cyanosis. Neurovascular intact. Full, normal range of motion. Neuro: Awake and alert, GCS 15, oriented to person, place, time, and situation. Motor strength 5/5 in all extremities. Sensory grossly intact. Vital Signs: 14:34 BP 159 / 84; Pulse 84; Resp 18; Temp 98.8; Pulse Ox 100% ; ko1 MDM: 14:38 Patient medically screened. sb4 14:57 Differential diagnosis: viral Infection, bacterial infection, URI, bronchitis, sb4 pneumonia. 15:12 Independent interpretation of the following test(s) in the Emergency Department X-Ray: sb4 My interpretation is my interpretation of the chest xray images is no acute consolidation/evidence of pneumonia. 16:47 Data reviewed: vital signs, nurses notes, lab test result(s), radiologic studies, and sb4 as a result, I will discharge patient. Counseling: I had a detailed discussion with the patient and/or guardian regarding the historical points, exam findings, and any diagnostic results supporting the discharge/admit diagnosis, lab results, radiology results, to return to the emergency department if symptoms worsen or persist or if there are any questions or concerns that arise at home. 10/16 14:37 Order name: SARS RAPID; Complete Time: 15:26 sb4 10/16 14:37 Order name: Flu; Complete Time: 16:21 sb4 10/16 14:37 Order name: Chest Pa And Lat (2 Views) XRAY; Complete Time: 15:06 sb4 Administered Medications: No medications were administered Disposition Summary: 10/16/23 16:20 Discharge Ordered Notes: Location: Home sb4 Problem: an ongoing problem sb4 Symptoms: are unchanged sb4 Condition: Stable sb4 Diagnosis - Influenza A sb4 Followup: sb4 - With: Emergency Department - When: As needed - Reason: Trouble breathing, Worsening of condition Discharge Instructions: - Discharge Summary Sheet sb4 - Influenza, Adult, [id number] sb4 Forms: - Medication Reconciliation Form sb4 - Thank You Letter sb4 - Antibiotic Education sb4 - Prescription Opioid Use sb4 - Patient Portal Instructions sb4 - Leadership Thank You Letter sb4 Signatures: Dispatcher [employer] Galilea Fernandez, RN RN ko1 Janki Viveros, PA-C PA-C sb4
[2023-10-16 17:57] VITALS: BP 159/84; TEMP 98.8; O2SAT 100
== END 2023-10-16 16:56 | disposition home or self-care (01) ==
LOC: ER 14:00
DX: J10.1 Influenza due to other identified influenza virus with other respiratory manifestations (principal); Z11.52 Encounter for screening for COVID-19; R07.9 Chest pain, unspecified; I10 Essential (primary) hypertension; Z88.2 Allergy status to sulfonamides; Z88.5 Allergy status to narcotic agent; Z88.8 Allergy status to other drugs, medicaments and biological substances
CPT/HCPCS: 36415; 71046; 87804; 87811; 99284